=== PATIENT | female | born 1930 | race Caucasian/White ===

== ENCOUNTER 2017-07-07 09:31 | Emergency (ER) | payer MEDICARE, BC ==
[~2017-07-07] VITALS: Ht 152.4 cm; Wt 65.5 kg
[~2017-07-07 09:31] MED LIST: ASPI1TAB57 PO; DILA100C PO; LEVO.1 PO; METO25TA3 PO; WARF-18 PO; ZOCO40TA PO
[2017-07-07 09:37] VITALS: BP 106/60; PULSE 63; RESP 16; TEMP 98; O2SAT 96
--- NOTE | 2017-07-07 11:35 | PD ---
HPI Chief Complaint: Dizziness Time Seen by Provider: 11:17 Travel History International Travel<30 days: No Contact w/Intl Traveler<30days: No History of Present Illness HPI 87yo F with PMH of HTN, DVT on coumadin, hypothyroidism, vertigo, seizure disorder on dilantin presents to the ED with c/o dizziness after getting her hair done yesterday. Said she felt room spinning and then all day didnt feel good. It got better throughout the day and woke up this morning feeling pretty good. Then she got up from sitting position and felt lightheaded. Said she is not dizzy lying down right now but when she looked up to look at the clock, felt dizzy for a little bit again. Denies any visual changes, chest pain, sob, n/v, abdominal pain, focal weakness or numbness. PFSH Past Medical History Arthritis: Yes Autoimmune Disease: No Blood Disorders: No Heart Rhythm Problems: No Cancer: No Cardiovascular Problems: Yes High Cholesterol: Yes Chest Pain: No Congestive Heart Failure: No Cerebrovascular Accident: No Diabetes: No Diminished Hearing: No Deep Vein Thrombosis: Yes Endocrine: Yes (NODULE ON THYROID) Gastrointestinal Disorders: No Genitourinary: No Headaches: No Hepatitis: No Hypertension: Yes Immune Disorder: No Implanted Vascular Access Dvce: No Musculoskeletal: Yes Neurologic: No Psychiatric: No Reproductive: No Respiratory: Yes Migraines: No Myocardial Infarction: No Seizures: Yes (none since 2002) Thyroid Disease: Yes PNEUMOCCOCAL Vaccine (Year): 2 Past Surgical History Abdominal Surgery: No Cardiac Surgery: No Cholecystectomy: Yes Ear Surgery: No Endocrine Surgery: No Eye Surgery: No Genitourinary Surgery: No Gynecologic Surgery: Yes (HYSTERECTOMY 1967) Hysterectomy: Yes Oral Surgery: No Pacemaker: No Thoracic Surgery: Yes (CHOLECYSTECTOMY 1986) Other Surgery: Yes (gall bladder, rt knee arthoscopic, hysterectomy) Social History Alcohol Use: No Tobacco Use: No Substance Use: No Allergies-Medications (Allergen,Severity, Reaction): Coded Allergies: Sulfa (Sulfonamide Antibiotics) (Unverified Allergy, Severe, RASH, 07/07/17 ) carbamazepine (Unverified Allergy, Mild, rash, 07/07/17) rash Reported Meds & Prescriptions Reported Meds & Active Scripts Active Keflex (Cephalexin) 500 Mg Cap 500 Mg PO Q12H 7 Days Reported Zocor (Simvastatin) 40 Mg Tab 40 Mg PO Dilantin (Phenytoin Extended) 100 Mg Cap 200 Mg PO EVEN NUMBER DAY Dilantin (Phenytoin Extended) 100 Mg Cap 300 Mg PO ODD NUMBER DAY Warfarin 2.5 Mg Tab 2.5 Mg PO DAILY Synthroid (Levothyroxine Sodium) 100 Mcg Tab 100 Mcg PO DAILY Aspirin 81 (Aspirin) 81 Mg Tabdr 81 Mg PO DAILY Review of Systems Except as stated in HPI: all other systems reviewed are Neg Physical Exam Narrative GENERAL: 87yo F not in distress. SKIN: Focused skin assessment warm/dry. HEAD: Atraumatic. Normocephalic. EYES: Pupils equal and round at 3mm bilaterally. EOMI. No horizontal or vertigo nystagmus. ENT: No nasal bleeding or discharge. Mucous membranes pink and moist. NECK: Trachea midline. No JVD. CARDIOVASCULAR: Regular rate and rhythm. No murmur appreciated. RESPIRATORY: No accessory muscle use. Clear to auscultation. Breath sounds equal bilaterally. GASTROINTESTINAL: Abdomen soft, non-tender, nondistended. MUSCULOSKELETAL: No obvious deformities. No clubbing. No cyanosis. No edema. NEUROLOGICAL: Awake and alert. No obvious cranial nerve deficits. Motor grossly within normal limits in all extremities. Sensation equal in all extremities. Normal finger to nose test. Normal speech. PSYCHIATRIC: Appropriate mood and affect; insight and judgment normal. Data Data Last Documented VS Vital Signs Date Time Temp Pulse Resp B/P (MAP) Pulse Ox O2 Delivery O2 Flow Rate FiO2 07/07/17 14:16 58 12 141/75 (97) 100 Room Air 07/07/17 09:37 98.0 Orders Orders Electrocardiogram (07/07/17 11:29) Basic Metabolic Panel (Bmp) (07/07/17 11:29) Complete Blood Count With Diff (07/07/17 11:29) Magnesium (Mg) (07/07/17 11:29) Troponin I (07/07/17 11:29) Act Partial Throm Time (Ptt) (07/07/17 11:29) Prothrombin Time / Inr (Pt) (07/07/17 11:29) Urinalysis - C+S If Indicated (07/07/17 11:29) Blood Glucose (07/07/17 11:29) Orthostatic Vital Signs (07/07/17 11:29) Urine Culture (07/07/17 12:35) Ceftriaxone Inj (Rocephin Inj) (07/07/17 13:45) Potassium, Serum (K) (07/07/17 13:32) Ed Discharge Order (07/07/17 15:31) Labs Laboratory Tests Test 07/07/17 12:30 07/07/17 12:35 07/07/17 14:10 White Blood Count 7.7 TH/MM3 Red Blood Count 4.57 MIL/MM3 Hemoglobin 9.9 GM/DL Hematocrit 33.1 % Mean Corpuscular Volume 72.4 FL Mean Corpuscular Hemoglobin 21.7 PG Mean Corpuscular Hemoglobin Concent 30.0 % Red Cell Distribution Width 16.5 % Platelet Count 265 TH/MM3 Mean Platelet Volume 8.5 FL Neutrophils (%) (Auto) 69.7 % Lymphocytes (%) (Auto) 18.7 % Monocytes (%) (Auto) 8.4 % Eosinophils (%) (Auto) 2.4 % Basophils (%) (Auto) 0.8 % Neutrophils # (Auto) 5.4 TH/MM3 Lymphocytes # (Auto) 1.4 TH/MM3 Monocytes # (Auto) 0.6 TH/MM3 Eosinophils # (Auto) 0.2 TH/MM3 Basophils # (Auto) 0.1 TH/MM3 CBC Comment AUTO DIFF Differential Comment AUTO DIFF CONFIRMED Target Cells 1+ Ovalocytes 1+ Prothrombin Time 31.5 SEC Prothromb Time International Ratio 3.1 RATIO Activated Partial Thromboplast Time 33.4 SEC Blood Urea Nitrogen 19 MG/DL Creatinine 1.10 MG/DL Random Glucose 85 MG/DL Calcium Level 8.3 MG/DL Magnesium Level 2.4 MG/DL Sodium Level 140 MEQ/L Potassium Level 5.7 MEQ/L 5.0 MEQ/L Chloride Level 109 MEQ/L Carbon Dioxide Level 22.5 MEQ/L Anion Gap 9 MEQ/L Estimat Glomerular Filtration Rate 47 ML/MIN Troponin I LESS THAN 0.02 NG/ML Urine Collection Type CLEAN CATCH Urine Color YELLOW Urine Turbidity CLOUDY Urine pH 7.0 Urine Specific [place] 1.020 Urine Protein NEG mg/dL Urine Glucose (UA) NEG mg/dL Urine Ketones NEG mg/dL Urine Occult Blood NEG Urine Nitrite POS Urine Bilirubin NEG Urine Urobilinogen 0.2 MG/DL Urine Leukocyte Esterase LARGE Urine RBC 0-3 /hpf Urine WBC 100-200 /hpf Urine WBC Clumps MANY Urine Squamous Epithelial Cells 0-5 /hpf Urine Bacteria MANY /hpf Microscopic Urinalysis Comment CULTURE INDICATED Urine Collection Time 12:35 [facility] Medical Decision Making Medical Screen Exam Complete: Yes Emergency Medical Condition: Yes Interpretation(s) EKG: Sinus bradycardia at 57bpm. LAD. No ST segment elevation or depression. Differential Diagnosis Orthostatic hypotension vs. peripheral vertigo vs. electrolyte abnormality Narrative Course 87yo F with c/o dizziness since yesterday. Pt cant really describe what she is feeling. However, has no dizziness currently while lying down. Said it feels different than her vertigo since she does not have any nausea or vomiting. Labs reviewed, no leukocytosis. H/H low at which is slightly lower than her baseline. Pt denies any blood in stool or black stool. Hemaprompt negative. K elevated at elevated at 5.7 but hemolyzed so it was repeated and repeat K is normal at 5.0. Troponin negative. INR therapeutic at 3.1. Pt has normal gait. UA showed positive nitrite. Large leukocyte. Pt given ceftriaxone 1gm IV. Pt reevaluated at bedside and denies any more dizziness. Return precautions given. HemaPrompt Point of Care Internal Pos. & Neg. Controls: Passed Fecal Specimen Occult Blood: Negative Diagnosis Primary Impression: UTI (urinary tract infection) Qualified Codes: N39.0 - Urinary tract infection, site not specified Patient Instructions: General Instructions Departure Forms: Tests/Procedures Additional Instructions: Please follow up with your primary care physician in 3-7 days. Return to the ED if symptoms worsen. Med/Other Pt SpecificInfo: Prescription(s) given Scripts Cephalexin (Keflex) 500 Mg Cap 500 MG PO Q12H for Infection for 7 Days, #14 CAP 0 Refills Prov: Mary Mirza 07/07/17 Disposition: 01 DISCHARGE HOME Condition: Stable MirzaDelaney bainaftab HELMS Jul 07, 2017 11:35
[2017-07-07 11:50] VITALS: BP_SYST 141; BP_SYST 145; BP_SYST 147; BP_DIAS 70; BP_DIAS 71; BP_DIAS 76; RESP 16
[2017-07-07 12:35] LABS: AUTOMATED NEUTROPHIL # 5.4 TH/MM3 (1.8-7.7); BASOPHIL # 0.1 TH/MM3 (0-0.2); BASOPHIL % 0.8 % (0.0-2.0); EOSINOPHIL # 0.2 TH/MM3 (0-0.4); EOSINOPHIL % 2.4 % (0.0-4.0); HEMATOCRIT 33.1 % (35.0-46.0); HEMOGLOBIN 9.9 GM/DL (11.6-15.3); LYMPH % 18.7 % (9.0-44.0); LYMPHOCYTE # 1.4 TH/MM3 (1.0-4.8); MEAN CELL VOLUME 72.4 FL (80.0-100.0); MEAN CORPUSCULAR HEMOGLOBIN 21.7 PG (27.0-34.0); MEAN PLATELET VOLUME 8.5 FL (7.0-11.0); MONO % 8.4 % (0.0-8.0); MONOCYTE # 0.6 TH/MM3 (0-0.9); NEUT % 69.7 % (16.0-70.0); PLATELET COUNT 265 TH/MM3 (150-450); RED BLOOD COUNT 4.57 MIL/MM3 (4.00-5.30); RED CELL DISTRIBUTION WIDTH 16.5 % (11.6-17.2); WHITE BLOOD COUNT 7.7 TH/MM3 (4.0-11.0)
[2017-07-07 12:44] LABS: CHLORIDE 109 MEQ/L (98-107); SODIUM (NA) 140 MEQ/L (136-145)
[2017-07-07 12:44] LABS: BILIRUBIN, URINE NEG (NEG); BLOOD, URINE NEG (NEG); GLUCOSE,URINE NEG (NEG); KETONE, URINE NEG (NEG); NITRITE,URINE POS (NEG); URINE COLOR YELLOW (YELLW/STRAW); URINE LEUKOCYTE ESTERASE LARGE (NEG)
[2017-07-07 12:45] VITALS: BP 166/79; PULSE 56; RESP 12; O2SAT 100
[2017-07-07 12:46] LABS: CALCIUM 8.3 MG/DL (8.5-10.1)
[2017-07-07 12:47] LABS: BICARBONATE 22.5 MEQ/L (21.0-32.0); BLOOD UREA NITROGEN 19 MG/DL (7-18); GLUCOSE,RANDOM 85 MG/DL (74-106); MAGNESIUM 2.4 MG/DL (1.5-2.5)
[2017-07-07 12:49] LABS: INTERNATIONAL NORMALIZED RATIO 3.1 RATIO; PROTHROMBIN TIME - PATIENT 31.5 SEC (9.8-11.6)
[2017-07-07 12:50] LABS: GLOMERULAR FILTRATION RATE 47 ML/MIN (>89)
[2017-07-07 12:52] LABS: RBC, URINE 0-3 /hpf (0-3); WBC, URINE 100-200 /hpf (0-5); WHITE BLOOD CELL CLUMPS MANY
[2017-07-07 12:53] LABS: BACTERIA, URINE MANY /hpf; SQUAMOUS EPITHELIAL CELL URINE 0-5 /hpf (0-5)
[2017-07-07 12:55] LABS: TROPONIN I LESS THAN 0.02 NG/ML (0.02-0.05)
[2017-07-07 13:08] LABS: TARGET CELLS 1+ (NORMAL)
[2017-07-07 13:09] LABS: OVALOCYTES 1+ (NORMAL)
[2017-07-07] MEDS ORDERED: cefTRIAXone INJ 1,000 MG in SODIUM CHLORIDE 0.9% INJ 100 ML IV ONE (13:45)
[2017-07-07 14:16] VITALS: BP 141/75; PULSE 58; RESP 12; O2SAT 100
[2017-07-07] MEDS ORDERED: CEPH-460 PO (15:30)
--- NOTE | 2017-07-07 20:11 | EKG ---
Date Performed: 07/07/2017 Time Performed: 11:37:14 PTAGE: 87 years EKG: SINUS BRADYCARDIA BORDERLINE ECG Since the PREVIOUS TRACING , no significant change noted PREVIOUS TRACIN09/05/2013 09.02 DOCTOR: Remberto Daniel Interpretating Date/Time 07/07/2017 20:09:27
== END 2017-07-07 15:46 | disposition home or self-care (01) ==
LOC: PHED 09:31
DX: N39.0 Urinary tract infection, site not specified (principal); E03.9 Hypothyroidism, unspecified; E78.00 Pure hypercholesterolemia, unspecified; G40.909 Epilepsy, unspecified, not intractable, without status epilepticus; I10 Essential (primary) hypertension; R00.1 Bradycardia, unspecified; Z79.01 Long term (current) use of anticoagulants; Z86.718 Personal history of other venous thrombosis and embolism
CPT/HCPCS: 80048; 81001; 83735; 84132; 84484; 85025; 85610; 85730; 87077; 87086; 87186; 93005; 96365; 99284; J0696

== ENCOUNTER 2017-10-12 07:44 | Inpatient (IN) ==
[2017-10-13] MEDS ORDERED: Midazolam 50 MG/50 ML Inj 50 MG/50 ML BAG IV.CONT ONE (23:50)
[2017-10-14] MEDS ORDERED: Magnesium Oxide 400 MG Tablet PO PRN (00:01)
[2017-10-14] MEDS ORDERED: Sodium Phosphate Inj 30 MMOL in Sodium Chlor 0.9% Inj 250 ML IV.SIG PRN (00:01)
[2017-10-14] MEDS ORDERED: Potassium Chlor 40 mEq Premix 40 MEQ/100 ML PIGGYBACK IV.SIG PRN (00:01)
[2017-10-14] MEDS ORDERED: Midazolam 50 MG/50 ML Inj 50 MG/50 ML BAG IV.CONT PRN (00:01)
[2017-10-14] MEDS ORDERED: Potassium Chloride 25 MEQ Effervescent Tablet PO PRN (00:01)
[2017-10-14] MEDS ORDERED: Potassium Phosphate 500 MG Soluble Tablet PO PRN ×2 (00:01)
[2017-10-14] MEDS ORDERED: Magnesium Sulfate Inj 2 GM in Sodium Chlor 0.9% Inj 96 ML IV.SIG PRN (00:01)
[2017-10-14] MEDS ORDERED: Magnesium Sulfate Inj 4 GM in Sodium Chlor 0.9% Inj 92 ML IV.SIG PRN (00:01)
[2017-10-14] MEDS ORDERED: Chlorhexidine Gluconate 2% 1 Pack (2 Cloths) TOPICAL PRN (00:01)
[2017-10-14] MEDS ORDERED: Potassium Phosphate Inj 30 MMOL in Sodium Chlor 0.9% Inj 250 ML IV.SIG PRN (00:01)
[2017-10-14] MEDS: Chlorhexidine Gluconate 2% 1 Pack (2 Cloths) TOPICAL SCH (04:29)
[2017-10-14 05:03] LABS: Baso % (Auto) 0.3 % (0.0-2.0); Eos % (Auto) 0.3 % (0.0-4.0); Hematocrit 24.2 % (35.0-46.0); Hemoglobin 7.8 gm/dL (11.6-15.3); Lymph # (Auto) 1.6 th/mm3 (1.0-4.8); Lymph % (Auto) 14.4 % (9.0-44.0); Mean Corpuscular HGB Conc 32.4 % (32.0-36.0); Mean Corpuscular Hemoglobin 23.7 pg (27.0-34.0); Mean Corpuscular Volume 73.1 fL (80.0-100.0); Mean Platelet Volume 8.3 fL (7.0-11.0); Mono # (Auto) 1.4 th/mm3 (0.0-0.9); Mono % (Auto) 12.4 % (0.0-8.0); Neut # (Auto) 8.2 th/mm3 (1.8-7.7); Neut % (Auto) 72.6 % (16.0-70.0); Platelet Count 143 th/mm3 (150-450); Red Cell Distribution Width 19.1 % (11.6-17.2); White Blood Count 11.3 th/mm3 (4.0-11.0)
[2017-10-14 05:33] LABS: Albumin 2.1 g/dL (3.4-5.0); Calcium 7.1 mg/dL (8.5-10.1); Carbon Dioxide 17.9 meq/L (21.0-32.0); Magnesium 2.1 mg/dL (1.5-2.5); Potassium 3.1 meq/L (3.5-5.1)
[2017-10-14 05:34] LABS: Phenytoin (Dilantin) 27.7 mcg/mL (10.0-20.0); Total Protein 5.3 g/dL (6.4-8.2)
[2017-10-14] MEDS: Sod Chloride 0.9% Inj 1,000 ML IV.SIG SCH ×3 (05:40→18:40)
[2017-10-14] MEDS: Sodium Chloride 23.4% Inj 188 MEQ in Sod Chloride 0.9% Inj 1,000 ML IV.SIG SCH ×2 (05:40→21:59)
[2017-10-14] MEDS: Oral Hygiene Kit OROPHARYNG SCH ×4 (05:41→23:39)
[2017-10-14] MEDS: Levothyroxine 100 MCG Tablet PO SCH (05:46)
--- NOTE | 2017-10-14 07:55 | P.PNCC ---
Subjective Subjective Remarks/Hospital Course: Patient is a 87-year-old female with past medical history significant for seizure disorder, history of DVT on Coumadin, history of recent skin cancer removed from scalp, hypothyroidism who presented to the emergency department for recurrent falls. She fell once yesterday and twice today. With last fall she did hit her head. Stat CT of the head showed 1 cm left subdural hemorrhage with moderate mass-effect left-sided subarachnoid hemorrhage and cortical contusion. Patient's INR was 4.4, patient was ordered to receive 10 mg vitamin K , and initially was ordered K Centra. Due to in availability of Kcentra 3 units of FFP was ordered. Dr. Kaba was consulted with advised reversal of anticoagulation first. Critical care was contacted for admission I evaluated the patient in the ICU. She is anxious but hemodynamically stable. There is mild facial droop and mild right-sided weakness right upper extremity. Three units of FFP, vitamin K done. I discussed with Dr. Kaba. He will re evaluate for surgical evacuation after complete reversal of anticoagulation. BUN/creatinine slightly elevated 23/1.24. Give 1 unit normal saline bolus and maintenance fluid at 50 mL/h with normal saline. Also start 2 % saline and 30 mL/h to target sodium more than 145. Her Dilantin level was 32.5 which is supratherapeutic corrected level is 37. Will hold Dilantin no other seizure prophylaxis needed at this time SUBJ 10/13/17: Approximately at about 5:30 AM developed focal seizures, was bolused with a single dose of Keppra thousand milligrams IV 1. Currently on 500 mg IV twice daily. Dilantin uncorrected 27.7. CT head today shows there is a slight increase in size of the left subdural hematoma, with significant increase in posterior component. Hb 6.7 today, repeat CBC is pending. Check ABG stat as patient is more somnolent. But wakes up easily appears to be protecting airway at this time SUBJ 10/14/17: s/p evacuation of left SDH, post op CT shows good evacuation with some residual blood. Pneumocephalus present. No further seizures postop. Dilantin level remains high at 27.7 Objective Vital Signs / I&O: Vital Signs 10/14/17 00:00 10/14/17 01:00 10/14/17 02:00 Temperature 97.9 F Pulse Rate 76 76 78 Respiratory Rate 15 15 15 Blood Pressure 136/47 L 133/46 L 135/46 L Pulse Oximetry 100 100 100 10/14/17 03:00 10/14/17 03:39 10/14/17 04:00 Temperature 99 F Pulse Rate 78 84 Respiratory Rate 15 15 15 Blood Pressure 130/45 L 122/43 L Pulse Oximetry 100 Intake & Output 10/13/17 10/14/17 10/14/17 18:59 06:59 18:59 Intake Total 2534 / 2534 Output Total 970 / 970 Balance 1564 / 1564 Intake: Other 2534 / 2534 Output: Stool 0 / 0 Urine Amount (Catheter) 750 / 750 Indwelling Urethral Catheter 750 / 750 Gastric Drainage 100 / 100 Orogastric Tube 100 / 100 Wound Drainage 120 / 120 Posterior Head TATA Drain 120 / 120 Other: Other Intake Source Saline Solution Result Diagrams: 10/14/17 04:50 10/14/17 04:50 Objective Remarks: GENERAL: Elderly female sedated with Versed and fentanyl infusion SKIN: Warm/dry. HEAD: Small abrasion tip of nose, circumferential craniotomy dressing intact EYES: Pupils equal and round, reactive. 3 to 2 ENT: No nasal bleeding or discharge. Mucous membranes pink and moist. Orotracheally intubated NECK: Trachea midline. No JVD. CARDIOVASCULAR: Regular rate and rhythm. Grade 2 systolic murmur heard in all areas RESPIRATORY: PRVC/AC. No accessory muscle use. Clear to auscultation. Breath sounds equal bilaterally. GASTROINTESTINAL: Abdomen soft, non-tender, nondistended. MUSCULOSKELETAL: No obvious deformities. No clubbing. 1+ pitting edema NEUROLOGICAL: Intubated, heavily sedated with Versed and fentanyl infusions. Pupils reactive as above equal. Slight withdrawal of extremities. No spontaneous movement noted while on sedation Assessment and Plan - Assessment and Plan Plan: /P Assessment and Plan NEURO: Status post fall with left subdural, subarachnoid hemorrhage and cortical contusion, moderate mass-effect Dilantin toxicity Recurrent seizures Seizure disorder -CT of the head 10/12: 1 cm left subdural hemorrhage with moderate mass-effect left-sided SAH and cortical contusion. Repeat CT 10/13 increasing subdural hemorrhage -Status post craniotomy and evacuation of left subdural hemorrhage yesterday . Postop CT today shows improved subdural hemorrhage with some pneumocephalus. -No further seizures postop. Dilantin level remains high at 27.7 -Continue Keppra 500 mg IV every 12. Check EEG -Replace calcium, keep magnesium above 2 -Keep sedated with IV Versed and fentanyl infusions, no sedation vacation until cleared by Dr. Kaba -Recurrent fall was most likely secondary to Dilantin toxicity. -2% saline to keep sodium above 145 -Avoid hyponatremia hypomagnesemia hypoxia RESP: Acute respiratory failure -PRVC AC -No SBT until cleared by N/S -DuoNeb every 6 hours as needed -ABG today CV: Hypertension -Normal saline IV fluids 75 ml per hour -2% Saline 30 ml per hour -IV labetalol 10 mg every 2 hours as needed for SBP more than 150 GI: -N.p.o. start tube feeds in 24 hours -IV famotidine : Acute kidney injury -Monitor renal function closely. Haley catheter for accurate intake output -IV fluid resuscitation as above ID: -Antibiotics not indicated at this time, except perioperative HEME: Supratherapeutic INR On chronic Coumadin for DVT Anemia Vitamin B12 deficiency -s/p 3 units FFP, 10 mg IV vitamin K given -Status post 1 unit PRBC yesterday 10/13/2017 hemoglobin 7.8 today -Monitor CBC, CMP, INR -Continue vitamin B12 supplementation ENDO: Hypothyroidism Hypocalcemia -Continue Synthroid -Electrolyte replacement per protocol PROPH: -Bilateral lower extremity SCDs. Chemical DVT prophylaxis contraindicated. IV famotidine LINES: -Right IJ central line and arterial line placed in OR 10/13/2017 CC time 45 min Code Status: Full Discussed Condition With: POA at bedside and RN
[2017-10-14] MEDS: Potassium Chlor 40 mEq Premix 40 MEQ/100 ML PIGGYBACK IV.SIG PRN ×2 (08:13→11:34)
[2017-10-14] MEDS: Senna/Docusate Sodium 8.6/50 MG Tablet PO SCH ×2 (08:22→21:39)
[2017-10-14] MEDS: Famotidine PF Inj 20 MG/2 ML Vial IV.PUSH SCH ×2 (08:23→21:38)
[2017-10-14] MEDS: Chlorhexidine Gluconate 0.12% Liq 15 ML UDC SWISH-SPIT SCH ×2 (08:24→21:39)
[2017-10-14] MEDS: Labetalol HCl Inj 100 MG/20 ML Vial IV.PUSH PRN (16:45)
--- NOTE | 2017-10-14 21:05 | P.PNNS ---
Subjective Interval history: Patient has undergone left craniotomy evacuation for left hemisphere acute subdural hematoma on 10/13/2017. Pre-existing history of seizures with additional seizure activity noted preoperative. Patient intubated prior to surgery for decline in neurologic exam with follow-up CT scan 10/13/2017 revealing mild increase in left hemisphere subdural hematoma without additional mass-effect. 10/14/2017: CT scan head with good evacuation of left hemisphere subdural hematoma. Persistent enlargement of right subdural-subarachnoid space. Persistent mild to moderate left convexity subarachnoid hemorrhage. Ventricles remain symmetric. No significant pneumocephalus. Hemoglobin 7.8. Positive hypokalemia. No further seizure activity reported. Remains intubated with mild sedation. Physical Exam Vital signs: Vital Signs 10/14/17 00:00 10/14/17 01:00 10/14/17 02:00 Temperature 97.9 F Pulse Rate 76 76 78 Respiratory Rate 15 15 15 Blood Pressure 136/47 L 133/46 L 135/46 L Pulse Oximetry 100 100 100 10/14/17 03:00 10/14/17 03:39 10/14/17 04:00 Temperature 99 F Pulse Rate 78 84 Respiratory Rate 15 15 15 Blood Pressure 130/45 L 122/43 L Pulse Oximetry 100 10/14/17 08:00 10/14/17 16:30 10/14/17 20:36 Temperature Pulse Rate 79 73 75 Respiratory Rate 15 15 15 Blood Pressure Pulse Oximetry Intake & Output 10/14/17 10/14/17 10/15/17 06:59 18:59 06:59 Intake Total 2534 / 2534 1100 / 1100 Output Total 970 / 970 Balance 1564 / 1564 1100 / 1100 Intake: IV 1100 / 1100 KCl 40 mEq Premix Inj 40 meq In 100 / 100 100 ml @ 25 mls/hr IV.SIG Q2H PRN Rx#:[id number] NS Inj 1,000 ML @ 100 mls/hr IV 1000 / 1000 .SIG .Q10H CAREY Rx#:[id number] Other 2534 / 2534 Output: Stool 0 / 0 Urine Amount (Catheter) 750 / 750 Indwelling Urethral Catheter 750 / 750 Gastric Drainage 100 / 100 Orogastric Tube 100 / 100 Wound Drainage 120 / 120 Posterior Head TATA Drain 120 / 120 Other: Other Intake Source Saline Solution Narrative: Respirations clear Cardiac regular Abdomen soft Mild lower extremity edema Intubated. Sedated on fentanyl and Versed. Propofol discontinued. Pupils 2-3 mm nonreactive. Mild oculocephalic response No eye-opening Not following commands Mild flexion upper extremities to deep pain Significant increase drain output. Mostly CSF blood-tinged 10/14/2017 CT scan head images reviewed. Good evacuation of majority of large left hemisphere acute subdural hematoma. No significant pneumocephalus. Ventricles are symmetric No midline shift. Persistent increased right subdural space and subarachnoid space - Urinary Catheter Management Indwelling Urethral Catheter Cath placed during this visit: no Assessment and Plan - Assessment (1) Subdural hematoma, acute Code(s): S06.5X9A - Traumatic subdural hemorrhage with loss of consciousness of unspecified duration, initial encounter Status: Acute - Plan Impression: 1. Stable neurologic exam and postoperative CT scan following evacuation acute left hemisphere subdural hematoma 10/14/2017 2. Anemia 3. Hypokalemia 4. Seizure disorder Plan: 1. Continue present ventilatory support 2. Decrease subdural drain bulb compression. 3. Monitor hemoglobin 4. Continue Keppra. Dilantin held. Level remains high today 5. Electrolyte replacement Discussed with the patient's POA. All questions answered. Prognosis remains guarded
[2017-10-15] MEDS: fentaNYL 10 mcg/mL Premix Drip 2,500 MCG/250 ML BAG IV.SIG PRN (00:58)
[2017-10-15] MEDS: Chlorhexidine Gluconate 2% 1 Pack (2 Cloths) TOPICAL SCH (05:48)
[2017-10-15] MEDS: Oral Hygiene Kit OROPHARYNG SCH ×3 (05:48→17:21)
[2017-10-15] MEDS: Levothyroxine 100 MCG Tablet PO SCH (05:48)
--- NOTE | 2017-10-15 07:31 | MG ---
cc: Carl Tatum MD EEG NUMBER: [id number] Intubated. MEDICATIONS: Fentanyl, Versed. INDICATIONS: Left subdural hematoma. An 87-year-old woman hit her head. Fentanyl, Keppra. DESCRIPTION: There is an asymmetry higher amplitude on the left than the right. General diffuse 7 Hz rhythms are seen. I do not see any epileptiform or seizure activity, however. It appears that there might be a slight left breach rhythm if there has been a bur hole done. Photic stimulation performed without significant posterior driving. IMPRESSION: Slightly higher amplitude in the left could represent a breach rhythm, but no seizure activity is seen. Carl Tatum MD DJM/DL , 07:13 AM , 07:31 AM
--- NOTE | 2017-10-15 09:32 | P.PNNS ---
Subjective Interval history: 10/15/2017: Patient is now postop day #2 status post left craniotomy for evacuation of subdural hematoma. She remains intubated. Weaning sedation today. No seizure activity noted Still significant CSF output from the drain, now being compressed only once per shift. Physical Exam Vital signs: Vital Signs 10/14/17 10:00 10/14/17 12:00 10/14/17 14:00 Temperature 98.5 F Pulse Rate 78 80 74 Respiratory Rate 20 Blood Pressure 172/79 H Pulse Oximetry 100 10/14/17 16:00 10/14/17 16:30 10/14/17 18:00 Temperature 98 F Pulse Rate 72 73 74 Respiratory Rate 21 15 Blood Pressure 162/74 H Pulse Oximetry 100 10/14/17 20:00 10/14/17 20:31 10/14/17 20:36 Temperature 98.7 F Pulse Rate 72 75 Respiratory Rate 15 15 15 Blood Pressure 133/67 Pulse Oximetry 100 10/14/17 22:00 10/14/17 23:53 10/15/17 00:00 Temperature 98.9 F Pulse Rate 69 70 Respiratory Rate 15 15 Blood Pressure 114/57 L Pulse Oximetry 100 10/15/17 02:00 10/15/17 02:24 10/15/17 03:16 Temperature Pulse Rate 58 L 66 Respiratory Rate 15 15 Blood Pressure Pulse Oximetry 100 10/15/17 04:00 10/15/17 04:41 10/15/17 06:00 Temperature 98.5 F Pulse Rate 67 68 Respiratory Rate 15 15 Blood Pressure 145/72 H Pulse Oximetry 100 10/15/17 07:55 10/15/17 08:00 Temperature Pulse Rate 67 Respiratory Rate 15 Blood Pressure Pulse Oximetry 100 Intake & Output 10/14/17 10/15/17 10/15/17 18:59 06:59 18:59 Intake Total 1205 / 1205 1284 / 1284 Output Total 980 / 980 1365 / 1365 Balance 225 / 225 -81 / -81 Weight 71.5 kg Intake: IV 1205 / 1205 KCl 40 mEq Premix Inj 40 meq In 100 / 100 100 ml @ 25 mls/hr IV.SIG Q2H PRN Rx#:[id number] NS Inj 1,000 ML @ 100 mls/hr IV 1000 / 1000 .SIG .Q10H CAREY Rx#:[id number] Keppra Inj 500 MG In NS Inj 100 105 / 105 ML @ 420 mls/hr IV.SIG Q12HR CAREY Rx#:[id number] Oral 0 / 0 Other 1284 / 1284 Output: Stool 0 / 0 Urine Amount (Catheter) 500 / 500 1000 / 1000 Indwelling Urethral Catheter 500 / 500 1000 / 1000 Gastric Drainage 75 / 75 175 / 175 Orogastric Tube 75 / 75 175 / 175 Wound Drainage 405 / 405 190 / 190 Posterior Head TATA Drain 405 / 405 190 / 190 Other: Other Intake Source Saline Solution # Bowel Movements 0 0 Narrative: General: Intubated. Sedation being weaned off. Respirations: Clear to auscultation Cardiac regular without murmur Abdomen soft. No obvious tenderness. Extremities: Mild lower extremity edema. No cyanosis. Musculoskeletal: Good range of motion all extremities. No contractures. Neurologic: With sedation turned off for approximately 30 minutes, the patient has good eye opening to voice. She tracks slightly in response to voice. Pupils are midrange mildly reactive. Mild conjugate extraocular movements. Not following commands. Minimal bilateral grasp. - Urinary Catheter Management Indwelling Urethral Catheter Cath placed during this visit: no Assessment and Plan - Assessment (1) Subdural hematoma, acute Code(s): S06.5X9A - Traumatic subdural hemorrhage with loss of consciousness of unspecified duration, initial encounter Status: Acute - Plan Impression: 1. Stable neurologic exam and postoperative CT scan following evacuation acute left hemisphere subdural hematoma 10/14/2017. She is relatively alert on 10/15/17 with initial sedation weaning 2. Anemia 3. Hypokalemia 4. Seizure disorder Plan: 1. Continue present ventilatory support. Discussed with supervisor painting shipyard. Okay to wean sedation. 2. Decrease subdural drain bulb compression. 3. Monitor hemoglobin 4. Continue Keppra. Dilantin held. Level remains high today 5. Electrolyte replacement 6. EEG results pending 7. CT scan head 10/16/2017 Discussed with the patient's POA in the intensive surgical care unit this morning. She states that she will notify her other power of ceramic tile mechanic in regards to the patient's progress.. All questions answered. Prognosis remains guarded
[2017-10-15] MEDS: Famotidine PF Inj 20 MG/2 ML Vial IV.PUSH SCH ×2 (09:53→20:15)
[2017-10-15] MEDS: Senna/Docusate Sodium 8.6/50 MG Tablet PO SCH ×2 (09:53→20:15)
[2017-10-15] MEDS: Chlorhexidine Gluconate 0.12% Liq 15 ML UDC SWISH-SPIT SCH ×2 (09:55→20:16)
[2017-10-15 10:20] LABS: INR 1.1 Ratio; Prothrombin Time 11.1 sec (9.8-11.6)
[2017-10-15 10:33] LABS: Alanine Aminotransferase 16 U/L (10-53); Albumin 1.9 g/dL (3.4-5.0); Alkaline Phosphatase 75 U/L (45-117); Anion Gap 13 meq/L (5-15); Aspartate Aminotransferase 12 U/L (15-37); Blood Urea Nitrogen 12 mg/dL (7-18); Calcium 7.1 mg/dL (8.5-10.1); Carbon Dioxide 15.5 meq/L (21.0-32.0); Chloride 127 meq/L (98-107); Glomerular Filtration Rate Greater Than 89 mL/min (>89); Glucose,Random 100 mg/dL (74-106); Potassium 3.8 meq/L (3.5-5.1); Sodium 155 meq/L (136-145); Total Protein 5.1 g/dL (6.4-8.2)
--- NOTE | 2017-10-15 12:53 | P.PNCC ---
Subjective Subjective Remarks/Hospital Course: Patient is a 87-year-old female with past medical history significant for seizure disorder, history of DVT on Coumadin, history of recent skin cancer removed from scalp, hypothyroidism who presented to the emergency department for recurrent falls. She fell once yesterday and twice today. With last fall she did hit her head. Stat CT of the head showed 1 cm left subdural hemorrhage with moderate mass-effect left-sided subarachnoid hemorrhage and cortical contusion. Patient's INR was 4.4, patient was ordered to receive 10 mg vitamin K , and initially was ordered K Centra. Due to in availability of Kcentra 3 units of FFP was ordered. Dr. Ennis was consulted with advised reversal of anticoagulation first. Critical care was contacted for admission I evaluated the patient in the ICU. She is anxious but hemodynamically stable. There is mild facial droop and mild right-sided weakness right upper extremity. Three units of FFP, vitamin K done. I discussed with Dr. Ennis. He will re evaluate for surgical evacuation after complete reversal of anticoagulation. BUN/creatinine slightly elevated 23/1.24. Give 1 unit normal saline bolus and maintenance fluid at 50 mL/h with normal saline. Also start 2 % saline and 30 mL/h to target sodium more than 145. Her Dilantin level was 32.5 which is supratherapeutic corrected level is 37. Will hold Dilantin no other seizure prophylaxis needed at this time SUBJ 10/13/17: Approximately at about 5:30 AM developed focal seizures, was bolused with a single dose of Keppra thousand milligrams IV 1. Currently on 500 mg IV twice daily. Dilantin uncorrected 27.7. CT head today shows there is a slight increase in size of the left subdural hematoma, with significant increase in posterior component. Hb 6.7 today, repeat CBC is pending. Check ABG stat as patient is more somnolent. But wakes up easily appears to be protecting airway at this time SUBJ 10/14/17: s/p evacuation of left SDH, post op CT shows good evacuation with some residual blood. Pneumocephalus present. No further seizures postop. Dilantin level remains high at 27.7 7/: Remains intubated critical. Sodium 155. Hypertonic saline. Opening eyes to voice when sedation held, and tracks. Hemodynamically remains stable. Dilantin level 23.3 today Objective Vital Signs / I&O: Vital Signs 10/14/17 14:00 10/14/17 16:00 10/14/17 16:30 Temperature 98 F Pulse Rate 74 72 73 Respiratory Rate 21 15 Blood Pressure 162/74 H Pulse Oximetry 100 10/14/17 18:00 10/14/17 20:00 10/14/17 20:31 Temperature 98.7 F Pulse Rate 74 72 Respiratory Rate 15 15 Blood Pressure 133/67 Pulse Oximetry 100 10/14/17 20:36 10/14/17 22:00 10/14/17 23:53 Temperature Pulse Rate 75 69 Respiratory Rate 15 15 Blood Pressure Pulse Oximetry 100 10/15/17 00:00 10/15/17 02:00 10/15/17 02:24 Temperature 98.9 F Pulse Rate 70 58 L Respiratory Rate 15 15 Blood Pressure 114/57 L Pulse Oximetry 100 10/15/17 03:16 10/15/17 04:00 10/15/17 04:41 Temperature 98.5 F Pulse Rate 66 67 Respiratory Rate 15 15 15 Blood Pressure 145/72 H Pulse Oximetry 100 10/15/17 06:00 10/15/17 07:55 10/15/17 08:00 Temperature 97.6 F Pulse Rate 68 69 Respiratory Rate 15 15 Blood Pressure 135/92 H Pulse Oximetry 100 100 10/15/17 10:00 10/15/17 11:52 10/15/17 12:00 Temperature 97.7 F Pulse Rate 76 70 Respiratory Rate 15 13 Blood Pressure 126/97 H Pulse Oximetry 100 100 10/15/17 12:21 Temperature Pulse Rate 70 Respiratory Rate Blood Pressure Pulse Oximetry Intake & Output 10/14/17 10/15/17 10/15/17 18:59 06:59 18:59 Intake Total 1205 / 1205 1389 / 1389 Output Total 980 / 980 1365 / 1365 Balance 225 / 225 24 / 24 Weight 71.5 kg Intake: IV 1205 / 1205 105 / 105 KCl 40 mEq Premix Inj 40 meq In 100 / 100 100 ml @ 25 mls/hr IV.SIG Q2H PRN Rx#:[id number] NS Inj 1,000 ML @ 100 mls/hr IV 1000 / 1000 .SIG .Q10H CAREY Rx#:[id number] Keppra Inj 500 MG In NS Inj 100 105 / 105 105 / 105 ML @ 420 mls/hr IV.SIG Q12HR CAREY Rx#:[id number] Oral 0 / 0 Other 1284 / 1284 Output: Stool 0 / 0 Urine Amount (Catheter) 500 / 500 1000 / 1000 Indwelling Urethral Catheter 500 / 500 1000 / 1000 Gastric Drainage 75 / 75 175 / 175 Orogastric Tube 75 / 75 175 / 175 Wound Drainage 405 / 405 190 / 190 Posterior Head TATA Drain 405 / 405 190 / 190 Other: Other Intake Source Saline Solution # Bowel Movements 0 0 Result Diagrams: 10/14/17 04:50 10/15/17 09:32 Objective Remarks: GENERAL: Elderly female sedated with Versed and fentanyl infusion, now held for 30 min SKIN: Warm/dry. HEAD: Small abrasion tip of nose, circumferential craniotomy dressing intact EYES: Pupils equal and round, reactive. 3 to 2 ENT: No nasal bleeding or discharge. Mucous membranes pink and moist. Orotracheally intubated NECK: Trachea midline. No JVD. CARDIOVASCULAR: Regular rate and rhythm. Grade 2 systolic murmur heard in all areas RESPIRATORY: PRVC/AC. No accessory muscle use. Clear to auscultation. Breath sounds equal bilaterally. GASTROINTESTINAL: Abdomen soft, non-tender, nondistended. MUSCULOSKELETAL: No obvious deformities. No clubbing. 1+ pitting edema NEUROLOGICAL: Intubated. Pupils reactive as above equal. + withdrawal of extremities. Opens eyes and tracks Assessment and Plan - Assessment and Plan Plan: A/P Assessment and Plan NEURO: Status post fall with left subdural, subarachnoid hemorrhage and cortical contusion, moderate mass-effect Dilantin toxicity Recurrent seizures Seizure disorder -CT of the head 10/12: 1 cm left subdural hemorrhage with moderate mass-effect left-sided SAH and cortical contusion. Repeat CT 10/13 increasing subdural hemorrhage -Status post craniotomy and evacuation of left subdural hemorrhage yesterday . Postop CT today shows improved subdural hemorrhage with some pneumocephalus. -No further seizures postop. Dilantin level remains high at 23.3 -Continue Keppra 500 mg IV every 12. Check EEG -Replace calcium, keep magnesium above 2 -Keep sedated with IV Versed and fentanyl infusions, Daily sedation vacation -Recurrent fall was most likely secondary to Dilantin toxicity. -dc 2% saline, keep sodium 150-155 -Avoid hyponatremia hypomagnesemia hypoxia RESP: Acute respiratory failure -PRVC/AC -No SBT until cleared by N/S -DuoNeb every 6 hours as needed -ABG today CV: Hypertension -Normal saline IV fluids 75 ml per hour -dc 2% Saline -IV labetalol 10 mg every 2 hours as needed for SBP more than 150 GI: -start tube feeds WITH jEVITY -IV famotidine : Acute kidney injury -Monitor renal function closely. Haley catheter for accurate intake output -IV fluid resuscitation as above ID: -Antibiotics not indicated at this time, except perioperative HEME: Supratherapeutic INR On chronic Coumadin for DVT Anemia Vitamin B12 deficiency -s/p 3 units FFP, 10 mg IV vitamin K given -Status post 1 unit PRBC 10/13/2017 -Monitor CBC, CMP, INR -Continue vitamin B12 supplementation ENDO: Hypothyroidism Hypocalcemia -Continue Synthroid -Electrolyte replacement per protocol PROPH: -Bilateral lower extremity SCDs. Chemical DVT prophylaxis contraindicated. IV famotidine LINES: -Right IJ central line and arterial line placed in OR 10/13/2017 CC time 32 min Code Status: FULL Discussed Condition With: DR ENNIS AND TABATHA
[2017-10-15] MEDS: Labetalol HCl Inj 100 MG/20 ML Vial IV.PUSH PRN ×2 (14:46→18:16)
[2017-10-15] MEDS: Sod Chloride 0.9% Inj 1,000 ML IV.SIG SCH (15:30)
[2017-10-16] MEDS: Sod Chloride 0.9% Inj 1,000 ML IV.SIG SCH ×3 (03:31→08:20)
--- NOTE | 2017-10-16 04:47 | XR ---
EXAM DATE: 10/16/2017 3:50 AM EDT AGE/SEX: 87 years / Female INDICATIONS: Respiratory disease. CLINICAL DATA: This is the patient's subsequent encounter. Patient reports that signs and symptoms h ave been present for 1 week and indicates a pain score of Nonresponsive. MEDICAL/SURGICAL HISTORY: Non-responsive. Non-responsive. COMPARISON: [facility] – [place], CHEST SINGLE AP, 10/13/2017. . FINDINGS: ET tube tip 1.9 cm above the lynn. Right internal jugular catheter tip projects in the right atrium . Gastric tube traverses the [id number]. There is increasing opacity with development of consolida tion consolidation in left lower lung with loss of delineation of the entire left hemidiaphragm. The right lung is clear. The heart is normal in size. CONCLUSION: Left lower lung consolidation. Electronically signed by: Kaushik Aguilar MD 10/16/2017 4:45 AM EDT
[2017-10-16] MEDS: Chlorhexidine Gluconate 2% 1 Pack (2 Cloths) TOPICAL SCH (05:12)
[2017-10-16] MEDS: Oral Hygiene Kit OROPHARYNG SCH ×3 (05:12→17:39)
[2017-10-16 05:37] LABS: Hematocrit 23.2 % (35.0-46.0); Hemoglobin 7.5 gm/dL (11.6-15.3); Mean Corpuscular HGB Conc 32.3 % (32.0-36.0); Mean Corpuscular Hemoglobin 24.1 pg (27.0-34.0); Mean Corpuscular Volume 74.5 fL (80.0-100.0); Mean Platelet Volume 8.1 fL (7.0-11.0); Platelet Count 132 th/mm3 (150-450); Red Blood Count 3.11 mil/mm3 (4.00-5.30); Red Cell Distribution Width 20.6 % (11.6-17.2); White Blood Count 9.2 th/mm3 (4.0-11.0)
[2017-10-16 06:07] LABS: Alanine Aminotransferase 15 U/L (10-53); Albumin 1.8 g/dL (3.4-5.0); Anion Gap 11 meq/L (5-15); Aspartate Aminotransferase 13 U/L (15-37); Blood Urea Nitrogen 13 mg/dL (7-18); Calcium 7.5 mg/dL (8.5-10.1); Carbon Dioxide 17.1 meq/L (21.0-32.0); Chloride 123 meq/L (98-107); Glomerular Filtration Rate Greater Than 89 mL/min (>89); Glucose,Random 140 mg/dL (74-106); Potassium 3.4 meq/L (3.5-5.1); Sodium 151 meq/L (136-145)
[2017-10-16 06:09] LABS: Alkaline Phosphatase 71 U/L (45-117); Total Protein 4.9 g/dL (6.4-8.2)
[2017-10-16] MEDS: Levothyroxine 100 MCG Tablet PO SCH (06:50)
[2017-10-16] MEDS: Labetalol HCl Inj 100 MG/20 ML Vial IV.PUSH PRN ×2 (08:15→15:46)
[2017-10-16] MEDS: Famotidine PF Inj 20 MG/2 ML Vial IV.PUSH SCH ×2 (08:18→22:32)
[2017-10-16] MEDS: Chlorhexidine Gluconate 0.12% Liq 15 ML UDC SWISH-SPIT SCH ×2 (08:18→21:03)
[2017-10-16] MEDS: Senna/Docusate Sodium 8.6/50 MG Tablet PO SCH ×2 (08:18→22:33)
[2017-10-16] MEDS ORDERED: niCARdipine Inj 25 MG in Sodium Chlor 0.9% Inj 240 ML IV.CONT PRN (09:31)
[2017-10-16] MEDS: fentaNYL 10 mcg/mL Premix Drip 2,500 MCG/250 ML BAG IV.SIG PRN (09:34)
--- NOTE | 2017-10-16 10:30 | P.PNNS ---
Subjective Interval history: Patient is in bed when seen. She continues to be intubated and mechanically ventilated. She does open her eyes to voice. She is not following any commands but did move the left upper and both lower extremities to noxious stimulation. She had no response with the right upper except for facial grimacing. Physical Exam Vital signs: Vital Signs 10/15/17 11:52 10/15/17 12:00 10/15/17 12:21 Temperature 97.7 F Pulse Rate 70 70 Respiratory Rate 15 13 Blood Pressure 126/97 H Pulse Oximetry 100 100 10/15/17 14:00 10/15/17 16:00 10/15/17 18:00 Temperature 97.9 F Pulse Rate 80 74 90 Respiratory Rate 16 Blood Pressure 160/74 H Pulse Oximetry 100 10/15/17 20:00 10/15/17 21:18 10/15/17 22:00 Temperature 98.1 F Pulse Rate 83 68 71 Respiratory Rate 20 15 Blood Pressure 159/66 H Pulse Oximetry 100 100 10/16/17 00:00 10/16/17 01:02 10/16/17 02:00 Temperature 98.4 F Pulse Rate 71 71 Respiratory Rate 15 15 Blood Pressure 136/73 Pulse Oximetry 100 10/16/17 04:00 10/16/17 04:08 10/16/17 06:00 Temperature 98 F Pulse Rate 72 77 72 Respiratory Rate 15 Blood Pressure 139/68 Pulse Oximetry 100 100 10/16/17 07:31 10/16/17 07:46 Temperature Pulse Rate 70 Respiratory Rate 15 15 Blood Pressure Pulse Oximetry 99 Intake & Output 10/15/17 10/16/17 10/16/17 18:59 06:59 18:59 Intake Total 105 / 105 2517 / 2517 355 / 355 Output Total 1925 / 1925 715 / 715 Balance -1820 / -1820 1802 / 1802 355 / 355 Weight 71.6 kg Intake: IV 105 / 105 1105 / 1105 355 / 355 NS Inj 1,000 ML @ 100 mls/hr IV 1000 / 1000 .SIG .Q10H CAREY Rx#:[id number] fentaNYL 10 mcg/mL Premix Drip 250 / 250 2,500 mcg In 250 ml @ 50 MCG/HR 5 mls/hr IV.SIG TITRATE PRN Rx #:[id number] Keppra Inj 500 MG In NS Inj 100 105 / 105 105 / 105 105 / 105 ML @ 420 mls/hr IV.SIG Q12HR CAREY Rx#:[id number] Oral 0 / 0 Tube Feeding 230 / 230 Tube Irrigant 60 / 60 Other 1122 / 1122 Output: Urine 1725 / 1725 Stool 0 / 0 Urine Amount (Catheter) 525 / 525 Indwelling Urethral Catheter 525 / 525 Gastric Drainage 100 / 100 Orogastric Tube 100 / 100 Wound Drainage 100 / 100 190 / 190 Posterior Head TATA Drain 100 / 100 190 / 190 Other: Other Intake Source Saline Solution # Bowel Movements 0 0 Narrative: GENERAL: Drowsy, opens eyes to voice. Intubated & mechanically ventilated. Fentanyl 100 mcg/hr infusing for pain control. On nicardipine infusion at 5 mg/ hr for blood pressure. No apparent distress. HEENT: Normocephalic. Well approximated surgical incisions w/sutures intact, no evident drainage, erythema or streaking, TATA drain to bulb suction w/ serosanguinous-coloured drainage. Pupils 2 mm reactive, does not appear to track. MUSCULOSKELETAL: Moved LUE & BLE to stimulation. No evident clubbing or deformity. NEUROLOGICAL: Drowsy, opens eyes to voice. Pupils 2mm reactive, does not appear to track. Nonverbal, intubated. Did not follow any commands. Moved LUE & BLE to local noxious stimulation, no response w/RUE to local noxious stimulation but did have facial grimacing. - Urinary Catheter Management Indwelling Urethral Catheter Cath placed during this visit: no Reason for continuing: Hourly intake/output Assessment and Plan - Plan Impression: 1. Stable neurologic exam and postoperative CT scan following evacuation acute left hemisphere subdural hematoma 10/14/2017. She is relatively alert on 10/15/17 with initial sedation weaning 2. Anemia 3. Hypokalemia 4. Seizure disorder Patient drowsy. Does open eyes to voice. Not following commands. Moves LUE & BLE to noxious stimulation, no response w/RUE. Prognosis continues to be guarded. TATA drain with 290 mL output for the past 24 hrs as of shift change this morning. Reviewed labs for today. EEG w/slightly higher amplitude on the left, possible breach rhythm, w/o seizure activity seen. Plan: 1. Continue present ventilatory support. Discussed with ball fringe machine operator. Okay to wean sedation. 2. Decrease subdural drain bulb compression. 3. Monitor hemoglobin 4. Continue Keppra. Dilantin held. Level remains high today 5. Electrolyte replacement 6. CT scan head 10/16/2017
--- NOTE | 2017-10-16 10:54 | P.DIET ---
Nutritional Evaluation Type of nutrition evaluation: initial Nutrition consult regarding: Tube Feeding Subjective Subjective Comments: s/p fall. Objective - Diagnosis Subdural hematoma, Acute - Objective % IBW: 171 Body Weight Used for Calculations: Upper end of IBW (101.2#/ 46 kg) Energy Needs - Lower Range (kCal/kg): 28 Energy Needs - Upper Range (kCal/kg): 32 Lower Limit kCal/kg (kCals): 1,288 Upper Limit kCal/kg (kCals): 1,472 Lower Limit Protein Factor (Grams per Kg): 1.2 Upper Limit Protein Factor (Grams per Kg): 1.6 Lower Protein Needs (Protein): 55 Upper Protein Needs (Protein): 74 Dietitian Reviewed in Medical Record: Curent medications, Intake & Output, Labs , Medical history, Tube feeding Diet Order: TF only Objective Comments: Hx includes seizure d/o, DVT on coumadin, skin CA on scalp, hypthyroid Labs: Na 151, K 3.4, glu 140 Meds include synthroid, propofol, (currently not on Dilantin) 7/1 evac of L SDH Feeding - Current Tube Feeding Tube Feeding Product: Jevity 1.5 Tube Feeding Method: Pump Tube Feeding Rate: 40 Medications That Affect Tube Feeding Run Time: Synthroid Total Time Off: 2 hours Assessment Assessment: Pt is at high nutrition risk 2' to dx and the need for TFing. To meet needs with Jevity 1.5, recommend goal rate of 45 mls/hr x 22 hours (d/t synthroid) to provide 1485 kcals, 63 gms protein and 752 mls of free water. Some additional kcals will be provided by propofol (1.1 kcal/ml). Recommendations: Jevity 1.5 @ 45 mls/hr x 22 hours. TF must be held 1 hour before and after synthroid is given Dietitian to Monitor: Lab values, Intake & Output, Tube feeding tolerance, Weight change, Medical course
--- NOTE | 2017-10-16 13:37 | P.PNCC ---
Subjective Subjective Remarks/Hospital Course: Patient is a 87-year-old female with past medical history significant for seizure disorder, history of DVT on Coumadin, history of recent skin cancer removed from scalp, hypothyroidism who presented to the emergency department for recurrent falls. She fell once yesterday and twice today. With last fall she did hit her head. Stat CT of the head showed 1 cm left subdural hemorrhage with moderate mass-effect left-sided subarachnoid hemorrhage and cortical contusion. Patient's INR was 4.4, patient was ordered to receive 10 mg vitamin K , and initially was ordered K Centra. Due to in availability of Kcentra 3 units of FFP was ordered. Dr. Kaba was consulted with advised reversal of anticoagulation first. Critical care was contacted for admission I evaluated the patient in the ICU. She is anxious but hemodynamically stable. There is mild facial droop and mild right-sided weakness right upper extremity. Three units of FFP, vitamin K done. I discussed with Dr. Kaba. He will re evaluate for surgical evacuation after complete reversal of anticoagulation. BUN/creatinine slightly elevated 23/1.24. Give 1 unit normal saline bolus and maintenance fluid at 50 mL/h with normal saline. Also start 2 % saline and 30 mL/h to target sodium more than 145. Her Dilantin level was 32.5 which is supratherapeutic corrected level is 37. Will hold Dilantin no other seizure prophylaxis needed at this time 10/13/17: Approximately at about 5:30 AM developed focal seizures, was bolused with a single dose of Keppra thousand milligrams IV 1. Currently on 500 mg IV twice daily. Dilantin uncorrected 27.7. CT head today shows there is a slight increase in size of the left subdural hematoma, with significant increase in posterior component. Hb 6.7 today, repeat CBC is pending. Check ABG stat as patient is more somnolent. But wakes up easily appears to be protecting airway at this time 10/14/17: s/p evacuation of left SDH, post op CT shows good evacuation with some residual blood. Pneumocephalus present. No further seizures postop. Dilantin level remains high at 27.7 7: Remains intubated critical. Sodium 155. Hypertonic saline. Opening eyes to voice when sedation held, and tracks. Hemodynamically remains stable. Dilantin level 23.3 today Subjective: 7/3 Hypertensive when sedation was weaned so started on cardene early this morning. CT brain to be repeated today per NSG. Follows commands by wiggling left toes. Objective Vital Signs / I&O: Vital Signs 10/15/17 14:00 10/15/17 16:00 10/15/17 18:00 Temperature 97.9 F Pulse Rate 80 74 90 Respiratory Rate 16 Blood Pressure 160/74 H Pulse Oximetry 100 10/15/17 20:00 10/15/17 21:18 10/15/17 22:00 Temperature 98.1 F Pulse Rate 83 68 71 Respiratory Rate 20 15 Blood Pressure 159/66 H Pulse Oximetry 100 100 10/16/17 00:00 10/16/17 01:02 10/16/17 02:00 Temperature 98.4 F Pulse Rate 71 71 Respiratory Rate 15 15 Blood Pressure 136/73 Pulse Oximetry 100 10/16/17 04:00 10/16/17 04:08 10/16/17 06:00 Temperature 98 F Pulse Rate 72 77 72 Respiratory Rate 15 Blood Pressure 139/68 Pulse Oximetry 100 100 10/16/17 07:31 10/16/17 07:46 10/16/17 08:00 Temperature 98.8 F Pulse Rate 70 68 Respiratory Rate 15 15 19 Blood Pressure 198/81 H Pulse Oximetry 99 100 10/16/17 11:38 Temperature Pulse Rate Respiratory Rate 15 Blood Pressure Pulse Oximetry 99 Intake & Output 10/15/17 10/16/17 10/16/17 18:59 06:59 18:59 Intake Total 105 / 105 2517 / 2517 355 / 355 Output Total 1925 / 1925 715 / 715 90 / 90 Balance -1820 / -1820 1802 / 1802 265 / 265 Weight 71.6 kg Intake: IV 105 / 105 1105 / 1105 355 / 355 NS Inj 1,000 ML @ 100 mls/hr IV 1000 / 1000 .SIG .Q10H CAREY Rx#:[id number] fentaNYL 10 mcg/mL Premix Drip 250 / 250 2,500 mcg In 250 ml @ 50 MCG/HR 5 mls/hr IV.SIG TITRATE PRN Rx #:[id number] Keppra Inj 500 MG In NS Inj 100 105 / 105 105 / 105 105 / 105 ML @ 420 mls/hr IV.SIG Q12HR CAREY Rx#:[id number] Oral 0 / 0 Tube Feeding 230 / 230 Tube Irrigant 60 / 60 Other 1122 / 1122 Output: Urine 1725 / 1725 Stool 0 / 0 Urine Amount (Catheter) 525 / 525 Indwelling Urethral Catheter 525 / 525 Gastric Drainage 100 / 100 Orogastric Tube 100 / 100 Wound Drainage 100 / 100 190 / 190 90 / 90 Posterior Head TATA Drain 100 / 100 190 / 190 90 / 90 Other: Other Intake Source Saline Solution # Bowel Movements 0 0 Result Diagrams: 10/21/17 04:30 10/21/17 04:30 Objective Remarks: GENERAL: Elderly female on sedation with fentanyl 25 mcg/hr, orotracheally intubated. SKIN: Warm/dry. HEAD: Small abrasion tip of nose. S/p L craniotomy with nataliya, c/d/i. TATA in place. EYES: Pupils equal and round, reactive. 3 to 2 ENT: No nasal bleeding or discharge. Mucous membranes pink and moist. Orotracheally intubated NECK: Trachea midline. No JVD. CARDIOVASCULAR: Regular rate and rhythm. Grade 2 systolic murmur heard in all areas RESPIRATORY: PRVC/AC. No accessory muscle use. Clear to auscultation. Breath sounds equal bilaterally. GASTROINTESTINAL: Abdomen soft, non-tender, nondistended. MUSCULOSKELETAL: No obvious deformities. No clubbing. 1+ pitting edema all extremities. NEUROLOGICAL: Intubated. Pupils reactive as above equal. Opens eyes, makes eye contact and tracks. Follows command with wiggling L toes. L side flaccid but has sensation as she has facial grimace with noxious stimuli. Assessment and Plan - Problem List (1) Dilantin toxicity Code(s): T42.0X1A - Poisoning by hydantoin derivatives, accidental ( unintentional), initial encounter Status: Acute (2) Subdural hematoma, acute Code(s): S06.5X9A - Traumatic subdural hemorrhage with loss of consciousness of unspecified duration, initial encounter Status: Acute (3) Seizure disorder Code(s): G40.909 - Epilepsy, unspecified, not intractable, without status epilepticus Status: Chronic (4) Respiratory failure, acute Code(s): J96.00 - Acute respiratory failure, unspecified whether with hypoxia or hypercapnia Status: Acute (5) HTN (hypertension) Code(s): I10 - Essential (primary) hypertension Status: Chronic (6) Hypothyroid Code(s): E03.9 - Hypothyroidism, unspecified Status: Chronic (7) B12 deficiency Code(s): E53.8 - Deficiency of other specified B group vitamins Status: Chronic - Assessment and Plan Plan: A/P Assessment and Plan NEURO: Status post fall with left subdural, subarachnoid hemorrhage and cortical contusion, moderate mass-effect Dilantin toxicity Recurrent seizures Seizure disorder -CT of the head 10/12: 1 cm left subdural hemorrhage with moderate mass-effect left-sided SAH and cortical contusion. Repeat CT 10/13 increasing subdural hemorrhage -Status post craniotomy and evacuation of left subdural hemorrhage 10/13/2017. Postop CT showed improved subdural hemorrhage with some pneumocephalus. -Repeat CT brain today per neurosurgery. -No further seizures postop. Dilantin level remains high at 23.3 on 10/15. -Continue Keppra 500 mg IV every 12. -EEG 10/15 slightly higher amplitude on the left. No seizure activity. -Replace calcium, keep magnesium above 2 -Off versed. Wean fentanyl infusions. NSG also agreeable to sedation vacation. -Recurrent fall was most likely secondary to Dilantin toxicity. -dc 2% saline, keep sodium 150-155 -Avoid hyponatremia hypomagnesemia hypoxia -B12 supplementation as per below. RESP: Acute respiratory failure -PRVC/AC -SBT today. -DuoNeb every 6 hours as needed CV: Hypertension -KVO MIVF. -dc 2% Saline -IV labetalol 10 mg every 2 hours as needed for SBP more than 150 -Wean off cardene drip. GI: -On tube feeds with Jevity 1.5 @ 50/hr, change to 45/hr per nutrition recs. -IV famotidine : Acute kidney injury -Monitor renal function closely. Haley catheter for accurate intake output ID: -Antibiotics not indicated at this time. HEME: Supratherapeutic INR On chronic Coumadin for DVT on admission. Anemia Vitamin B12 deficiency -s/p 3 units FFP, 10 mg IV vitamin K given -Status post 1 unit PRBC 10/13/2017 -Continue vitamin B12 supplementation 1000 mcg IM daily. ENDO: Hypothyroidism Hypocalcemia -Continue Synthroid 100 mcg per tube daily. -Electrolyte replacement per protocol PROPH: -Bilateral lower extremity SCDs. Chemical DVT prophylaxis contraindicated. IV famotidine LINES: -Right IJ central line placed in OR 10/13/2017 #4. Art line placed in OR has been removed. Level 3 followup.
[2017-10-16] MEDS ORDERED: Labetalol HCl Inj 100 MG/20 ML Vial IV.PUSH ONE (16:46)
[2017-10-16] MEDS: amLODIPine 5 MG Tablet NG/OG SCH (17:39)
--- NOTE | 2017-10-16 19:16 | US ---
EXAM DATE: 10/16/2017 7:11 PM EDT AGE/SEX: 87 years / Female INDICATIONS: Bilateral leg swelling. CLINICAL DATA: This is the patient's initial encounter. Patient reports that signs and symptoms have been present for 1 day and indicates a pain score of Nonresponsive. MEDICAL/SURGICAL HISTORY: Hypercholesterolemia. Hypertension. Thyroid disease. Dizziness. Anti coagulant therapy. Hyperlipidemia. Deep vein thrombosis. Arthritis. Osteoporosis. Tonsillectomy. Ap pendectomy. Hysterectomy. Right eye cataract surgery. Cholecystectomy. Right knee arthroscopic. COMPARISON: None. TECHNIQUE: Venous ultrasound of both lower extremities was performed from the inguinal ligament to t he proximal calf. Real-time, color Doppler and spectral tracing, compression and augmentation techni ques were used. FINDINGS: Right Leg: Normal compression of the deep venous system from the inguinal region to the proximal gege f. No echogenic clot is seen. Normal response of the venous system to augmentation and respiration. Left Leg: Normal compression of the deep venous system from the inguinal region to the proximal calf . No echogenic clot is seen. Normal response of the venous system to augmentation and respiration. Other: None. CONCLUSION: 1. The study is negative for bilateral lower extremity deep venous thrombosis. Electronically signed by: Kaushik Norris MD 10/16/2017 7:15 PM EDT
[2017-10-17] MEDS: Oral Hygiene Kit OROPHARYNG SCH ×4 (01:39→16:43)
[2017-10-17 04:30] LABS: Hematocrit 24.1 % (35.0-46.0); Hemoglobin 7.6 gm/dL (11.6-15.3); Mean Corpuscular HGB Conc 31.6 % (32.0-36.0); Mean Corpuscular Hemoglobin 23.6 pg (27.0-34.0); Mean Corpuscular Volume 74.7 fL (80.0-100.0); Mean Platelet Volume 8.4 fL (7.0-11.0); Platelet Count 125 th/mm3 (150-450); Red Blood Count 3.23 mil/mm3 (4.00-5.30); Red Cell Distribution Width 21.1 % (11.6-17.2); White Blood Count 9.4 th/mm3 (4.0-11.0)
[2017-10-17 05:02] LABS: Calcium 7.9 mg/dL (8.5-10.1); Carbon Dioxide 20.4 meq/L (21.0-32.0); Potassium 3.2 meq/L (3.5-5.1)
[2017-10-17 05:04] LABS: Phenytoin (Dilantin) 14.7 mcg/mL (10.0-20.0)
[2017-10-17] MEDS: Chlorhexidine Gluconate 2% 1 Pack (2 Cloths) TOPICAL SCH (06:27)
[2017-10-17] MEDS: Levothyroxine 100 MCG Tablet PO SCH (06:28)
[2017-10-17] MEDS: Chlorhexidine Gluconate 0.12% Liq 15 ML UDC SWISH-SPIT SCH ×2 (07:57→20:59)
[2017-10-17] MEDS: Senna/Docusate Sodium 8.6/50 MG Tablet PO SCH (09:35)
[2017-10-17] MEDS: amLODIPine 5 MG Tablet NG/OG SCH (09:35)
[2017-10-17] MEDS: Famotidine PF Inj 20 MG/2 ML Vial IV.PUSH SCH (09:35)
[2017-10-17] MEDS: Potassium Chlor 20 mEq Premix 20 MEQ/100 ML PIGGYBACK IV.SIG PRN ×3 (09:37→16:42)
--- NOTE | 2017-10-17 12:47 | P.PNNS ---
Subjective Interval history: 10/17/17: Pt opens eyes. Pupils 4mm bilaterally. She moves left foot to command but not following with extremities otherwise. She is intubated and on Cardene drip. Left crani clean and dry. TATA drain in place. Physical Exam Vital signs: Vital Signs 10/16/17 14:00 10/16/17 14:43 10/16/17 16:00 Temperature 98.3 F Pulse Rate 70 78 Respiratory Rate 17 17 Blood Pressure 162/74 H Pulse Oximetry 100 10/16/17 16:42 10/16/17 18:00 10/16/17 20:00 Temperature 98.7 F Pulse Rate 85 75 94 H Respiratory Rate 15 15 Blood Pressure 169/74 H Pulse Oximetry 100 10/16/17 20:23 10/16/17 21:05 10/16/17 22:00 Temperature Pulse Rate 78 78 Respiratory Rate 16 Blood Pressure Pulse Oximetry 100 99 10/17/17 00:00 10/17/17 02:00 10/17/17 03:44 Temperature 98.7 F Pulse Rate 73 71 78 Respiratory Rate 15 16 Blood Pressure 137/62 Pulse Oximetry 96 10/17/17 04:00 10/17/17 06:00 10/17/17 08:14 Temperature 98.7 F Pulse Rate 74 86 Respiratory Rate 15 15 Blood Pressure Pulse Oximetry 100 10/17/17 08:17 Temperature Pulse Rate 83 Respiratory Rate 15 Blood Pressure Pulse Oximetry Intake & Output 10/16/17 10/17/17 10/17/17 18:59 06:59 18:59 Intake Total 973 / 973 1845 / 1845 1000 / 1000 Output Total 970 / 970 1040 / 1040 800 / 800 Balance 3 / 3 805 / 805 200 / 200 Weight 71.6 kg 73.3 kg Intake: IV 355 / 355 105 / 105 fentaNYL 10 mcg/mL Premix Drip 250 / 250 2,500 mcg In 250 ml @ 50 MCG/HR 5 mls/hr IV.SIG TITRATE PRN Rx #:[id number] Keppra Inj 500 MG In NS Inj 100 105 / 105 105 / 105 ML @ 420 mls/hr IV.SIG Q12HR CAREY Rx#:[id number] Oral 0 / 0 0 / 0 Tube Feeding 558 / 558 558 / 558 600 / 600 Tube Irrigant 60 / 60 60 / 60 Water Bolus Amount 400 / 400 Other 1122 / 1122 Output: Urine 800 / 800 800 / 800 Stool 0 / 0 0 / 0 0 / 0 Urine Amount (Catheter) 800 / 800 Indwelling Urethral Catheter 800 / 800 Gastric Drainage 100 / 100 Orogastric Tube 100 / 100 Wound Drainage 170 / 170 140 / 140 Posterior Head TATA Drain 170 / 170 140 / 140 Other: Other Intake Source Saline Solution # Bowel Movements 0 0 - Constitutional no acute distress - Routine HEENT Exam Head: Absent: normocephalic (Left craniotomy incision clean and dry.) Eye: Present: PERRL (Pupils 4mm bilaterally.). Absent: conjunctival icterus - Routine Neck Exam Present: trachea midline - Routine Respiratory Exam Present: patient mechanically ventilated (Pressure controlled. Rate 15. Peep 5. FiO2 30%.), CTA bilaterally. Absent: respiratory distress, rhonchi, wheezes - Routine Cardiovascular Exam Present: RRR, S1, S2. Absent: murmur - Routine Abdominal Exam Present: normoactive bowel sounds. Absent: distended - Routine Extremities Exam Absent: cyanosis (SCDs in place.) - Routine Skin Exam Present: intact (Incision clean and dry. TATA drain in place.). Absent: cyanosis , erythema - Routine Neurological Exam Present: alert, motor deficit - Detailed Neurological Exam: Coma Scale Eye Opening: Spontaneous Verbal Response: None Motor Response: Obey commands (Some limited command following for me.) Drury Coma Scale Total: 11 - Routine Psychiatric Exam Present: unable to assess - Urinary Catheter Management Indwelling Urethral Catheter Cath placed during this visit: no Reason for continuing: Other continuation reason Assessment and Plan - Assessment (1) Subdural hematoma, acute Code(s): S06.5X9A - Traumatic subdural hemorrhage with loss of consciousness of unspecified duration, initial encounter Status: Acute - Plan Impression: 1. Stable neurologic exam and postoperative CT scan following evacuation acute left hemisphere subdural hematoma 10/14/2017. She is relatively alert on 10/15/17 with initial sedation weaning 2. Anemia 3. Hypokalemia 4. Seizure disorder Plan: 1. Continue present ventilatory support. 2. Decrease subdural drain bulb compression. 3. Monitor hemoglobin 4. Continue Keppra. 5. Continue with neuro checks.
--- NOTE | 2017-10-17 17:49 | P.PNCC ---
Subjective Subjective Remarks/Hospital Course: Patient is a 87-year-old female with past medical history significant for seizure disorder, history of DVT on Coumadin, history of recent skin cancer removed from scalp, hypothyroidism who presented to the emergency department for recurrent falls. She fell once yesterday and twice today. With last fall she did hit her head. Stat CT of the head showed 1 cm left subdural hemorrhage with moderate mass-effect left-sided subarachnoid hemorrhage and cortical contusion. Patient's INR was 4.4, patient was ordered to receive 10 mg vitamin K , and initially was ordered K Centra. Due to in availability of Kcentra 3 units of FFP was ordered. Dr. Kaba was consulted with advised reversal of anticoagulation first. Critical care was contacted for admission I evaluated the patient in the ICU. She is anxious but hemodynamically stable. There is mild facial droop and mild right-sided weakness right upper extremity. Three units of FFP, vitamin K done. I discussed with Dr. Kaba. He will re evaluate for surgical evacuation after complete reversal of anticoagulation. BUN/creatinine slightly elevated 23/1.24. Give 1 unit normal saline bolus and maintenance fluid at 50 mL/h with normal saline. Also start 2 % saline and 30 mL/h to target sodium more than 145. Her Dilantin level was 32.5 which is supratherapeutic corrected level is 37. Will hold Dilantin no other seizure prophylaxis needed at this time 10/13/17: Approximately at about 5:30 AM developed focal seizures, was bolused with a single dose of Keppra thousand milligrams IV 1. Currently on 500 mg IV twice daily. Dilantin uncorrected 27.7. CT head today shows there is a slight increase in size of the left subdural hematoma, with significant increase in posterior component. Hb 6.7 today, repeat CBC is pending. Check ABG stat as patient is more somnolent. But wakes up easily appears to be protecting airway at this time 10/14/17: s/p evacuation of left SDH, post op CT shows good evacuation with some residual blood. Pneumocephalus present. No further seizures postop. Dilantin level remains high at 27.7 7/2: Remains intubated critical. Sodium 155. Hypertonic saline. Opening eyes to voice when sedation held, and tracks. Hemodynamically remains stable. Dilantin level 23.3 today 7/3 Hypertensive when sedation was weaned so started on cardene early this morning. CT brain to be repeated today per NSG. Follows commands by wiggling left toes. Subjective: 10/17 Follows command with minimal movement L toes. On CPAP 01/18 for couple of hours but does not appear she would protect airway. Dilantin downtrending, albumin corrected is 32 Objective Vital Signs / I&O: Vital Signs 10/16/17 18:00 10/16/17 20:00 10/16/17 20:23 Temperature 98.7 F Pulse Rate 75 94 H Respiratory Rate 15 Blood Pressure 169/74 H Pulse Oximetry 100 10/16/17 21:05 10/16/17 22:00 10/17/17 00:00 Temperature 98.7 F Pulse Rate 78 78 73 Respiratory Rate 16 15 Blood Pressure 137/62 Pulse Oximetry 99 10/17/17 02:00 10/17/17 03:44 10/17/17 04:00 Temperature 98.7 F Pulse Rate 71 78 74 Respiratory Rate 16 15 Blood Pressure Pulse Oximetry 96 100 10/17/17 06:00 10/17/17 08:14 10/17/17 08:17 Temperature Pulse Rate 86 83 Respiratory Rate 15 15 Blood Pressure Pulse Oximetry 10/17/17 15:57 Temperature Pulse Rate Respiratory Rate 24 Blood Pressure Pulse Oximetry 100 Intake & Output 10/16/17 10/17/17 10/17/17 18:59 06:59 18:59 Intake Total 973 / 973 1845 / 1845 1305 / 1305 Output Total 970 / 970 1040 / 1040 800 / 800 Balance 3 / 3 805 / 805 505 / 505 Weight 71.6 kg 73.3 kg Intake: IV 355 / 355 105 / 105 305 / 305 KCl 20 mEq Premix Inj 20 meq In 200 / 200 100 ml @ 50 mls/hr IV.SIG Q2H PRN Rx#:[id number] fentaNYL 10 mcg/mL Premix Drip 250 / 250 2,500 mcg In 250 ml @ 50 MCG/HR 5 mls/hr IV.SIG TITRATE PRN Rx #:[id number] Keppra Inj 500 MG In NS Inj 100 105 / 105 105 / 105 105 / 105 ML @ 420 mls/hr IV.SIG Q12HR CAREY Rx#:[id number] Oral 0 / 0 0 / 0 Tube Feeding 558 / 558 558 / 558 600 / 600 Tube Irrigant 60 / 60 60 / 60 Water Bolus Amount 400 / 400 Other 1122 / 1122 Output: Urine 800 / 800 800 / 800 Stool 0 / 0 0 / 0 0 / 0 Urine Amount (Catheter) 800 / 800 Indwelling Urethral Catheter 800 / 800 Gastric Drainage 100 / 100 Orogastric Tube 100 / 100 Wound Drainage 170 / 170 140 / 140 Posterior Head TATA Drain 170 / 170 140 / 140 Other: Other Intake Source Saline Solution # Bowel Movements 0 0 Result Diagrams: 10/17/17 04:20 10/17/17 04:20 Objective Remarks: GENERAL: Elderly female on sedation with fentanyl 25 mcg/hr, orotracheally intubated. SKIN: Warm/dry. HEAD: Small abrasion tip of nose. S/p L craniotomy with nataliya, c/d/i. TATA in place. EYES: Pupils equal and round, reactive. 3 to 2 ENT: No nasal bleeding or discharge. Mucous membranes pink and moist. Orotracheally intubated NECK: Trachea midline. No JVD. CARDIOVASCULAR: Regular rate and rhythm. Grade 2 systolic murmur heard in all areas RESPIRATORY: On CPAP, No accessory muscle use. Breath sounds equal bilaterally; course. GASTROINTESTINAL: Abdomen soft, non-tender, nondistended. MUSCULOSKELETAL: No obvious deformities. No clubbing. 1-2+ pitting edema BUE, 1 + BLE. NEUROLOGICAL: Intubated. Pupils reactive as above equal. Opens eyes, makes eye contact and tracks. Follows command with wiggling L toes. Minimal movement of finger on L hand to command. R side flaccid, + facial grimace with right peripheral noxious stimuli. Assessment and Plan - Assessment and Plan Plan: A/P Assessment and Plan NEURO: Status post fall with left subdural, subarachnoid hemorrhage and cortical contusion, moderate mass-effect Dilantin toxicity Recurrent seizures Seizure disorder -CT of the head 10/12: 1 cm left subdural hemorrhage with moderate mass-effect left-sided SAH and cortical contusion. Repeat CT 10/13 increasing subdural hemorrhage -Status post craniotomy and evacuation of left subdural hemorrhage 10/13/2017. Postop CT showed improved subdural hemorrhage with some pneumocephalus. -TATA -Repeat CT brain 07/17 - small IVH without hydrocephalus -No further seizures postop. Albumin corrected Dilantin level remains high on . Will follow up. -Continue Keppra 500 mg IV every 12. -EEG 10/15 slightly higher amplitude on the left. No seizure activity. -Replace calcium, keep magnesium above 2 -Off versed. Wean fentanyl infusions. NSG also agreeable to sedation vacation. -Recurrent fall was most likely secondary to Dilantin toxicity. -off 2% saline -Avoid hyponatremia hypomagnesemia hypoxia -B12 supplementation as per below. RESP: Acute respiratory failure -PRVC/AC -SBT daily but mental status precludes extubation at this time. -DuoNeb every 6 hours as needed CV: Hypertension -KVO MIVF. -off 2% Saline -IV labetalol 10 mg every 2 hours as needed for SBP more than 150 -Wean off cardene drip. Increase Norvasc 10 mg daily. GI: - Jevity 1.5 @ 5 45/hr per nutrition recs. -IV famotidine : Acute kidney injury -Monitor renal function closely. Haley catheter for accurate intake output ID: Monitor for signs and symptoms of infection. HEME: Supratherapeutic INR On chronic Coumadin for DVT on admission. Anemia Vitamin B12 deficiency -s/p 3 units FFP, 10 mg IV vitamin K given -Status post 1 unit PRBC 10/13/2017 -Continue vitamin B12 supplementation 1000 mcg IM daily. ENDO: Hypothyroidism Hypocalcemia -Continue Synthroid 100 mcg per tube daily. -Electrolyte replacement per protocol PROPH: -Bilateral lower extremity SCDs. Chemical DVT prophylaxis contraindicated. IV famotidine LINES: -Right IJ central line placed in OR 10/13/2017 #5. No longer requires CVL. Place PIV and d/c CVL. Art line placed in OR has been removed. Level 3 followup.
[2017-10-17] MEDS ORDERED: amLODIPine 5 MG Tablet PO ONE (20:50)
[2017-10-17] MEDS ORDERED: Metoprolol Tartrate 25 MG Tablet PO SCH (21:00)
[2017-10-18] MEDS: Famotidine PF Inj 20 MG/2 ML Vial IV.PUSH SCH ×2 (00:29→08:34)
[2017-10-18] MEDS: Senna/Docusate Sodium 8.6/50 MG Tablet PO SCH ×2 (00:30→08:14)
[2017-10-18] MEDS: Oral Hygiene Kit OROPHARYNG SCH ×4 (00:30→17:07)
[2017-10-18] MEDS: Chlorhexidine Gluconate 2% 1 Pack (2 Cloths) TOPICAL SCH (03:20)
[2017-10-18 04:06] LABS: Hematocrit 22.7 % (35.0-46.0); Hemoglobin 7.2 gm/dL (11.6-15.3); Mean Corpuscular HGB Conc 31.5 % (32.0-36.0); Mean Corpuscular Hemoglobin 23.6 pg (27.0-34.0); Mean Platelet Volume 8.8 fL (7.0-11.0); Platelet Count 119 th/mm3 (150-450); Red Blood Count 3.02 mil/mm3 (4.00-5.30); Red Cell Distribution Width 21.7 % (11.6-17.2); White Blood Count 10.7 th/mm3 (4.0-11.0)
[2017-10-18 04:29] LABS: Albumin 1.7 g/dL (3.4-5.0); Calcium 7.4 mg/dL (8.5-10.1); Carbon Dioxide 23.2 meq/L (21.0-32.0); Phenytoin (Dilantin) 11.1 mcg/mL (10.0-20.0); Potassium 4.2 meq/L (3.5-5.1)
[2017-10-18 04:40] LABS: Calcium-Albumin Corrected 8.7 mg/dL (8.5-10.1); Total Protein 4.8 g/dL (6.4-8.2)
[2017-10-18] MEDS: Levothyroxine 100 MCG Tablet PO SCH (06:18)
[2017-10-18] MEDS: Chlorhexidine Gluconate 0.12% Liq 15 ML UDC SWISH-SPIT SCH (08:13)
[2017-10-18] MEDS: amLODIPine 10 MG Tablet NG/OG SCH (08:33)
[2017-10-18] MEDS: niCARdipine Inj 50 MG in Sodium Chlor 0.9% Inj 480 ML IV.CONT PRN (09:24)
--- NOTE | 2017-10-18 10:02 | P.PNCC ---
Subjective Subjective Remarks/Hospital Course: Patient is a 87-year-old female with past medical history significant for seizure disorder, history of DVT on Coumadin, history of recent skin cancer removed from scalp, hypothyroidism who presented to the emergency department for recurrent falls. She fell once yesterday and twice today. With last fall she did hit her head. Stat CT of the head showed 1 cm left subdural hemorrhage with moderate mass-effect left-sided subarachnoid hemorrhage and cortical contusion. Patient's INR was 4.4, patient was ordered to receive 10 mg vitamin K , and initially was ordered K [facility]ra. Due to in availability of Kcentra 3 units of FFP was ordered. Dr. Kaba was consulted with advised reversal of anticoagulation first. Critical care was contacted for admission I evaluated the patient in the ICU. She is anxious but hemodynamically stable. There is mild facial droop and mild right-sided weakness right upper extremity. Three units of FFP, vitamin K done. I discussed with Dr. Kaba. He will re evaluate for surgical evacuation after complete reversal of anticoagulation. BUN/creatinine slightly elevated 23/1.24. Give 1 unit normal saline bolus and maintenance fluid at 50 mL/h with normal saline. Also start 2 % saline and 30 mL/h to target sodium more than 145. Her Dilantin level was 32.5 which is supratherapeutic corrected level is 37. Will hold Dilantin no other seizure prophylaxis needed at this time 10/13/17: Approximately at about 5:30 AM developed focal seizures, was bolused with a single dose of Keppra thousand milligrams IV 1. Currently on 500 mg IV twice daily. Dilantin uncorrected 27.7. CT head today shows there is a slight increase in size of the left subdural hematoma, with significant increase in posterior component. Hb 6.7 today, repeat CBC is pending. Check ABG stat as patient is more somnolent. But wakes up easily appears to be protecting airway at this time 10/14/17: s/p evacuation of left SDH, post op CT shows good evacuation with some residual blood. Pneumocephalus present. No further seizures postop. Dilantin level remains high at 27.7 7/2: Remains intubated critical. Sodium 155. Hypertonic saline. Opening eyes to voice when sedation held, and tracks. Hemodynamically remains stable. Dilantin level 23.3 today 7/3 Hypertensive when sedation was weaned so started on cardene early this morning. CT brain to be repeated today per NSG. Follows commands by wiggling left toes. Subjective: 7/ Follows command with minimal movement L toes. On CPAP 01/18 for couple of hours but does not appear she would protect airway. Dilantin downtrending, albumin corrected is 32 10/18: Orally intubated on mechanical ventilation. Awake and alert. Tolerating tube feeds. Tolerating CPAP trial Objective Vital Signs / I&O: Vital Signs 10/17/17 10:00 10/17/17 12:00 10/17/17 14:00 Temperature Pulse Rate 74 74 74 Respiratory Rate Blood Pressure Pulse Oximetry 10/17/17 15:57 10/17/17 16:00 10/17/17 18:00 Temperature Pulse Rate 74 74 Respiratory Rate 24 Blood Pressure Pulse Oximetry 100 10/17/17 19:43 10/17/17 19:47 10/17/17 20:00 Temperature 98.7 F Pulse Rate 84 91 H Respiratory Rate 15 15 Blood Pressure 140/63 Pulse Oximetry 97 99 10/17/17 22:00 10/17/17 23:19 10/18/17 00:00 Temperature 97.6 F Pulse Rate 87 81 Respiratory Rate 15 16 Blood Pressure 117/57 L Pulse Oximetry 100 10/18/17 02:00 10/18/17 04:00 10/18/17 04:07 Temperature 99.2 F Pulse Rate 82 92 H Respiratory Rate 16 Blood Pressure 125/65 Pulse Oximetry 97 97 10/18/17 04:56 10/18/17 06:00 10/18/17 06:16 Temperature 99.2 F Pulse Rate 82 83 Respiratory Rate 15 15 Blood Pressure 141/65 H Pulse Oximetry 98 10/18/17 07:24 10/18/17 07:28 10/18/17 08:00 Temperature 98.8 F Pulse Rate 85 Respiratory Rate 15 10 L 15 Blood Pressure 131/60 Pulse Oximetry 97 99 Intake & Output 10/17/17 10/18/17 10/18/17 18:59 06:59 18:59 Intake Total 1989 2187 / 2187 Output Total 1450 / 1450 1270 / 1270 Balance 540 / 540 917 / 917 Weight 73.3 kg 73.3 kg Intake: IV 305 / 305 205 / 205 KCl 20 mEq Premix Inj 20 meq In 200 / 200 100 / 100 100 ml @ 50 mls/hr IV.SIG Q2H PRN Rx#:[id number] Keppra Inj 500 MG In NS Inj 100 105 / 105 105 / 105 ML @ 420 mls/hr IV.SIG Q12HR CAREY Rx#:[id number] Oral 0 / 0 0 / 0 Tube Feeding 1225 / 1225 400 / 400 Tube Irrigant 60 / 60 60 / 60 Water Bolus Amount 400 / 400 400 / 400 Other 1122 / 1122 Output: Urine 1200 / 1200 Stool 0 / 0 0 / 0 Urine Amount (Catheter) 1250 / 1250 Indwelling Urethral Catheter 1250 / 1250 Wound Drainage 200 / 200 70 / 70 Posterior Head TATA Drain 200 / 200 70 / 70 Other: Other Intake Source Saline Solution # Bowel Movements 0 0 Result Diagrams: 10/18/17 03:35 10/18/17 03:35 Objective Remarks: GENERAL: Elderly female on sedation with fentanyl 25 mcg/hr, orotracheally intubated. SKIN: Warm/dry. HEAD: Small abrasion tip of nose. S/p L craniotomy with nataliya, c/d/i. TATA in place. EYES: Pupils equal and round, reactive. 3 to 2 ENT: No nasal bleeding or discharge. Mucous membranes pink and moist. Orotracheally intubated NECK: Trachea midline. No JVD. CARDIOVASCULAR: Regular rate and rhythm. Grade 2 systolic murmur heard in all areas RESPIRATORY: On CPAP, No accessory muscle use. Breath sounds equal bilaterally; course. GASTROINTESTINAL: Abdomen soft, non-tender, nondistended. MUSCULOSKELETAL: No obvious deformities. No clubbing. 1-2+ pitting edema BUE, 1 + BLE. NEUROLOGICAL: Intubated. Pupils reactive as above equal. Opens eyes, makes eye contact and tracks. Follows command with wiggling L toes. Minimal movement of finger on L hand to command. R side flaccid, + facial grimace with right peripheral noxious stimuli. Assessment and Plan - Assessment and Plan Plan: A/P Assessment and Plan NEURO: Status post fall with left subdural, subarachnoid hemorrhage and cortical contusion, moderate mass-effect Dilantin toxicity Recurrent seizures Seizure disorder -CT of the head 10/12: 1 cm left subdural hemorrhage with moderate mass-effect left-sided SAH and cortical contusion. Repeat CT 10/13 increasing subdural hemorrhage -Status post craniotomy and evacuation of left subdural hemorrhage 10/13/2017. Postop CT showed improved subdural hemorrhage with some pneumocephalus. -TATA -Repeat CT brain 07/17 - small IVH without hydrocephalus -No further seizures postop. Albumin corrected Dilantin level remains high on . Will follow up. -Continue Keppra 500 mg IV every 12. -EEG 10/15 slightly higher amplitude on the left. No seizure activity. -Replace calcium, keep magnesium above 2 -Off versed. Wean fentanyl infusions. NSG also agreeable to sedation vacation. -Recurrent fall was most likely secondary to Dilantin toxicity. -off 2% saline -Avoid hyponatremia hypomagnesemia hypoxia -B12 supplementation as per below. RESP: Acute respiratory failure -PRVC/AC -SBT daily but mental status precludes extubation at this time. -DuoNeb every 6 hours as needed CV: Hypertension -KVO MIVF. -off 2% Saline -IV labetalol 10 mg every 2 hours as needed for SBP more than 150 -Wean off cardene drip. Increase Norvasc 10 mg daily. GI: - Jevity 1.5 @ 5 45/hr per nutrition recs. -IV famotidine : Acute kidney injury -Monitor renal function closely. Haley catheter for accurate intake output -Lasix 20 mg IV on 10/17 and 10/18 to mobilize fluid. ID: Monitor for signs and symptoms of infection. HEME: Supratherapeutic INR On chronic Coumadin for DVT on admission. Anemia Vitamin B12 deficiency -s/p 3 units FFP, 10 mg IV vitamin K given -Status post 1 unit PRBC 10/13/2017. Ordered 1 unit PRBCs on 10/18 for hemoglobin of 7.2 -Continue vitamin B12 supplementation 1000 mcg IM daily. ENDO: Hypothyroidism Hypocalcemia -Continue Synthroid 100 mcg per tube daily. -Electrolyte replacement per protocol PROPH: -Bilateral lower extremity SCDs. Chemical DVT prophylaxis contraindicated. IV famotidine LINES: -Right IJ central line placed in OR 10/13/2017, discontinued 10/17. Per IV Level 3 followup.
[2017-10-18] MEDS ORDERED: Sodium Chlor 0.9% Inj 250 ML IV.SIG SCH (11:00)
--- NOTE | 2017-10-18 16:27 | P.PNNS ---
Subjective Interval history: Patient has undergone left craniotomy evacuation for left hemisphere acute subdural hematoma on 10/13/2017. Pre-existing history of seizures with additional seizure activity noted preoperative. Patient intubated prior to surgery for decline in neurologic exam with follow-up CT scan 10/13/2017 revealing mild increase in left hemisphere subdural hematoma without additional mass-effect. 10/14/2017: CT scan head with good evacuation of left hemisphere subdural hematoma. Persistent enlargement of right subdural-subarachnoid space. Persistent mild to moderate left convexity subarachnoid hemorrhage. Ventricles remain symmetric. No significant pneumocephalus. Hemoglobin 7.8. Positive hypokalemia. No further seizure activity reported. Remains intubated with mild sedation. 10/15/2017: Patient is now postop day #2 status post left craniotomy for evacuation of subdural hematoma. She remains intubated. Weaning sedation today. No seizure activity noted Still significant CSF output from the drain, now being compressed only once per shift. 10/16: Patient is in bed when seen. She continues to be intubated and mechanically ventilated. She does open her eyes to voice. She is not following any commands but did move the left upper and both lower extremities to noxious stimulation. She had no response with the right upper except for facial grimacing. 10/17/17: Pt opens eyes. Pupils 4mm bilaterally. She moves left foot to command but not following with extremities otherwise. She is intubated and on Cardene drip. Left crani clean and dry. TATA drain in place. 10/18: When seen this afternoon the patient is awake in bed. She is intubated and on CPAP/PSV. She has no sedation infusing. She did not follow any commands. She moved the left upper and both lower extremities to stimulation but not the right upper. Nursing reported that she did move the left foot a couple times today to command and earlier became agitated and was moving both upper extremities spontaneously. <Julio Ricketts E - Last Filed: 10/18/17 16:33> Interval history: The exam, history, and the medical decision-making described in the above note were completed with the assistance of the mid-level provider. I reviewed and agree with the findings presented. I attest that I had a [id number] encounter with the patient on the same day, and personally performed and documented my assessment and findings in the medical record. Patient remains awake and relatively alert on exam. She has moderate bilateral conjugate gaze, but does not really focus or follow well with her eyes. She appears to intermittently move her left upper and lower extremity mild to command. Otherwise has moderate upper extremity flexion-withdrawal to extremity deep pain and sternal rub. Plan to discontinue compressing the drain bulb and recheck CT scan of the head on 10/19/2017 with possible drain removal. <Richard Kaba - Last Filed: 10/18/17 19:27> Physical Exam Vital signs: Vital Signs 10/17/17 18:00 10/17/17 19:43 10/17/17 19:47 Temperature Pulse Rate 74 84 Respiratory Rate 15 15 Blood Pressure Pulse Oximetry 97 10/17/17 20:00 10/17/17 22:00 10/17/17 23:19 Temperature 98.7 F Pulse Rate 91 H 87 Respiratory Rate 15 Blood Pressure 140/63 Pulse Oximetry 99 100 10/18/17 00:00 10/18/17 02:00 10/18/17 04:00 Temperature 97.6 F 99.2 F Pulse Rate 81 82 92 H Respiratory Rate 16 Blood Pressure 117/57 L 125/65 Pulse Oximetry 97 10/18/17 04:07 10/18/17 04:56 10/18/17 06:00 Temperature Pulse Rate 82 Respiratory Rate 16 15 Blood Pressure Pulse Oximetry 97 98 10/18/17 06:16 10/18/17 07:24 10/18/17 07:28 Temperature 99.2 F Pulse Rate 83 Respiratory Rate 15 15 10 L Blood Pressure 141/65 H Pulse Oximetry 97 10/18/17 08:00 10/18/17 10:00 10/18/17 12:00 Temperature 98.8 F 98.1 F Pulse Rate 85 85 78 Respiratory Rate 15 20 Blood Pressure 131/60 121/61 Pulse Oximetry 99 100 10/18/17 13:09 10/18/17 13:25 Temperature 98.3 F 98.4 F Pulse Rate 85 84 Respiratory Rate 16 18 Blood Pressure 128/56 L 168/74 H Pulse Oximetry 99 99 Intake & Output 10/17/17 10/18/17 10/18/17 18:59 06:59 18:59 Intake Total 1989 / 1989 2187 / 2187 0 / 0 Output Total 1450 / 1450 1270 / 1270 Balance 540 / 540 917 / 917 0 / 0 Weight 73.3 kg 73.3 kg Intake: IV 305 / 305 205 / 205 KCl 20 mEq Premix Inj 20 meq In 200 / 200 100 / 100 100 ml @ 50 mls/hr IV.SIG Q2H PRN Rx#:[id number] Keppra Inj 500 MG In NS Inj 100 105 / 105 105 / 105 ML @ 420 mls/hr IV.SIG Q12HR CAREY Rx#:[id number] Oral 0 / 0 0 / 0 Tube Feeding 1225 / 1225 400 / 400 Tube Irrigant 60 / 60 60 / 60 Water Bolus Amount 400 / 400 400 / 400 Other 1122 / 1122 Intake (Blood Product) Amt 0 / 0 Rbc As-3 Leukoreduced Unit 0 / 0 [id number] Output: Urine 1200 / 1200 Stool 0 / 0 0 / 0 Urine Amount (Catheter) 1250 / 1250 Indwelling Urethral Catheter 1250 / 1250 Wound Drainage 200 / 200 70 / 70 Posterior Head TATA Drain 200 / 200 70 / 70 Other: Other Intake Source Saline Solution # Bowel Movements 0 0 Narrative: GENERAL: Awake & alert. Intubated & mechanically ventilated. No sedation. No apparent distress. HEENT: Normocephalic. Well approximated surgical incisions w/sutures intact, no evident drainage, erythema or streaking, TATA drain to bulb suction w/ serosanguinous-coloured drainage. Pupils 2 mm reactive, does not appear to track. MUSCULOSKELETAL: Moved LUE & BLE to stimulation. No evident clubbing or deformity. NEUROLOGICAL: Awake & alert. Pupils 2mm reactive, does not appear to track. Nonverbal, intubated. Did not follow any commands. Moved LUE & RLE to local noxious stimulation but withdrew the left foot as soon as it was touched. She had no response w/RUE to local noxious stimulation but did have facial grimacing. She did move the left side extremities, shaking them , with noxious stimulation to the right side extremities. - Urinary Catheter Management Indwelling Urethral Catheter Cath placed during this visit: no Reason for continuing: Hourly intake/output <Julio Ricketts E - Last Filed: 10/18/17 16:33> Vital signs: Vital Signs 10/17/17 19:43 10/17/17 19:47 10/17/17 20:00 Temperature 98.7 F Pulse Rate 84 91 H Respiratory Rate 15 15 Blood Pressure 140/63 Pulse Oximetry 97 99 10/17/17 22:00 10/17/17 23:19 10/18/17 00:00 Temperature 97.6 F Pulse Rate 87 81 Respiratory Rate 15 16 Blood Pressure 117/57 L Pulse Oximetry 100 10/18/17 02:00 10/18/17 04:00 10/18/17 04:07 Temperature 99.2 F Pulse Rate 82 92 H Respiratory Rate 16 Blood Pressure 125/65 Pulse Oximetry 97 97 10/18/17 04:56 10/18/17 06:00 10/18/17 06:16 Temperature 99.2 F Pulse Rate 82 83 Respiratory Rate 15 15 Blood Pressure 141/65 H Pulse Oximetry 98 10/18/17 07:24 10/18/17 07:28 10/18/17 08:00 Temperature 98.8 F Pulse Rate 85 Respiratory Rate 15 10 L 15 Blood Pressure 131/60 Pulse Oximetry 97 99 10/18/17 10:00 10/18/17 12:00 10/18/17 13:09 Temperature 98.1 F 98.3 F Pulse Rate 85 78 85 Respiratory Rate 20 16 Blood Pressure 121/61 128/56 L Pulse Oximetry 100 99 10/18/17 13:25 10/18/17 14:00 10/18/17 16:00 Temperature 98.4 F 98.7 F Pulse Rate 84 88 91 H Respiratory Rate 18 16 Blood Pressure 168/74 H 142/66 H Pulse Oximetry 99 98 10/18/17 16:54 10/18/17 18:00 Temperature Pulse Rate 97 H Respiratory Rate 15 Blood Pressure Pulse Oximetry 98 Intake & Output 10/18/17 10/18/17 10/19/17 06:59 18:59 06:59 Intake Total 2187 / 2187 575 / 575 Output Total 1270 / 1270 1600 / 1600 Balance 917 / 917 -1025 / -1025 Weight 73.3 kg Intake: IV 205 / 205 KCl 20 mEq Premix Inj 20 meq In 100 / 100 100 ml @ 50 mls/hr IV.SIG Q2H PRN Rx#:[id number] Keppra Inj 500 MG In NS Inj 100 105 / 105 ML @ 420 mls/hr IV.SIG Q12HR CAREY Rx#:[id number] Oral 0 / 0 Tube Feeding 400 / 400 175 / 175 Tube Irrigant 60 / 60 Water Bolus Amount 400 / 400 Other 1122 / 1122 Intake (Blood Product) Amt 400 / 400 Rbc As-3 Leukoreduced Unit 400 / 400 [id number] Output: Urine 1200 / 1200 Stool 0 / 0 Urine Amount (Catheter) 1600 / 1600 Indwelling Urethral Catheter 1600 / 1600 Wound Drainage 70 / 70 Posterior Head TATA Drain 70 / 70 Other: Other Intake Source Saline Solution # Bowel Movements 0 0 - Urinary Catheter Management Indwelling Urethral Catheter Cath placed during this visit: no <Richard Kaba - Last Filed: 10/18/17 19:27> Assessment and Plan - Plan Impression: 1. Stable neurologic exam and postoperative CT scan following evacuation acute left hemisphere subdural hematoma 10/14/2017. She is relatively alert on 10/15/17 with initial sedation weaning 2. Anemia 3. Hypokalemia 4. Seizure disorder Patient awake & alert. Not following commands. Moves LUE & RLE to noxious stimulation and the LLE to avoid it, no response w/RUE. Prognosis guarded. TATA drain with 270 mL output for the past 24 hrs as of shift change this morning. Reviewed labs for today. Slight drop in haemoglobin level. Worsening of thrombocytopenia. Sodium 150. eGFR 80. Plan: 1. Continue present ventilatory support. Discussed with marriage counselor. Okay to wean sedation. 2. Hold subdural drain bulb compression. 3. Monitor hemoglobin 4. Continue Keppra. Dilantin held. Level remains high today 5. Electrolyte replacement 6. CT brain w/o contrast in AM. <Julio Ricketts - Last Filed: 10/18/17 16:33> - Assessment (1) Subdural hematoma, acute Code(s): S06.5X9A - Traumatic subdural hemorrhage with loss of consciousness of unspecified duration, initial encounter Status: Acute <Richard Kaba - Last Filed: 10/18/17 19:27>
--- NOTE | 2017-10-19 04:40 | CT ---
EXAM DATE: 10/19/2017 4:30 AM EDT AGE/SEX: 87 years / Female INDICATIONS: Cephalgia, follow up hemorrhage post craniotomy. CLINICAL DATA: This is the patient's subsequent encounter. Patient reports that signs and symptoms h ave been present for 1 week and indicates a pain score of Nonresponsive. MEDICAL/SURGICAL HISTORY: Non-responsive. Craniotomy. RADIATION DOSE: 56.35 CTDI (mGy) COMPARISON: . TECHNIQUE: CT of the head without contrast. Using automated exposure control and adjustment of the mA and/or kV according to patient size, radiation dose was kept as low as reasonably achievable to ob tain optimal diagnostic quality images. DICOM format image data is available electronically for revi ew and comparison. FINDINGS: Left subdural drain remains in place. There is residual subacute left-sided subdural blood present me asuring approximately 13 mm in maximal thickness along the left parietal convexity and 9 mm in marivel l thickness adjacent to the falx. This is nonsignificantly changed. A large, nonacute subdural hemato ma is seen along the right convexity, measures 13 mm in maximal thickness. There is approximately 6 m m of midline shift, actually to the left. Bifrontal pneumocephaly worse. No mass lesion. No evidence of an acute ischemic event. CONCLUSION: 1. 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 There is approximately 6 mm of leftward midline shift. No new bleed. 2. Increased bifrontal subdural pneumocephaly. Electronically signed by: Efrain Sarah MD 10/19/2017 4:39 AM EDT
[2017-10-19] MEDS: Levothyroxine 100 MCG Tablet PO SCH (05:59)
[2017-10-19] MEDS: Chlorhexidine Gluconate 2% 1 Pack (2 Cloths) TOPICAL SCH (05:59)
[2017-10-19] MEDS: Oral Hygiene Kit OROPHARYNG SCH ×3 (06:00→15:47)
[2017-10-19] MEDS: Senna/Docusate Sodium 8.6/50 MG Tablet PO SCH ×3 (09:21→20:50)
[2017-10-19] MEDS: Famotidine PF Inj 20 MG/2 ML Vial IV.PUSH SCH ×3 (09:21→20:47)
[2017-10-19] MEDS: Chlorhexidine Gluconate 0.12% Liq 15 ML UDC SWISH-SPIT SCH ×3 (09:21→20:52)
--- NOTE | 2017-10-19 09:34 | XR ---
EXAM DATE: 10/19/2017 9:24 AM EDT AGE/SEX: 87 years / Female INDICATIONS: Respiratory disease. CLINICAL DATA: This is the patient's subsequent encounter. Patient reports that signs and symptoms h ave been present for 3 days and indicates a pain score of Nonresponsive. MEDICAL/SURGICAL HISTORY: . Hypercholesterolemia. Hypertension. Thyroid disease. Dizziness. Ant icoagulant therapy. Hyperlipidemia. Deep vein thrombosis. Arthritis. Osteoporosis. . Tonsillectomy. Appendectomy. Hysterectomy. Right eye cataract surgery. Cholecystectomy. Right knee arthroscopic. [place] [facility] [place]16/[place]. . FINDINGS: Supportive devices are in stable position. Persistent airspace disease is identified in the left base. Heart and mediastinal structures are stable. CONCLUSION: No significant change. Persistent left basilar airspace disease. Electronically signed by: Angel Jaeger MD 10/19/2017 9:32 AM EDT
[2017-10-19] MEDS: amLODIPine 10 MG Tablet NG/OG SCH (09:52)
[2017-10-19 10:39] LABS: Hematocrit 28.6 % (35.0-46.0); Hemoglobin 9.3 gm/dL (11.6-15.3); Mean Corpuscular HGB Conc 32.5 % (32.0-36.0); Mean Corpuscular Hemoglobin 24.7 pg (27.0-34.0); Mean Platelet Volume 8.9 fL (7.0-11.0); Platelet Count 148 th/mm3 (150-450); Red Blood Count 3.76 mil/mm3 (4.00-5.30); Red Cell Distribution Width 21.3 % (11.6-17.2); White Blood Count 14.4 th/mm3 (4.0-11.0)
--- NOTE | 2017-10-19 11:04 | P.PNNS ---
Subjective Interval history: Patient has undergone left craniotomy evacuation for left hemisphere acute subdural hematoma on 10/13/2017. Pre-existing history of seizures with additional seizure activity noted preoperative. Patient intubated prior to surgery for decline in neurologic exam with follow-up CT scan 10/13/2017 revealing mild increase in left hemisphere subdural hematoma without additional mass-effect. 10/14/2017: CT scan head with good evacuation of left hemisphere subdural hematoma. Persistent enlargement of right subdural-subarachnoid space. Persistent mild to moderate left convexity subarachnoid hemorrhage. Ventricles remain symmetric. No significant pneumocephalus. Hemoglobin 7.8. Positive hypokalemia. No further seizure activity reported. Remains intubated with mild sedation. 10/15/2017: Patient is now postop day #2 status post left craniotomy for evacuation of subdural hematoma. She remains intubated. Weaning sedation today. No seizure activity noted Still significant CSF output from the drain, now being compressed only once per shift. 10/16: Patient is in bed when seen. She continues to be intubated and mechanically ventilated. She does open her eyes to voice. She is not following any commands but did move the left upper and both lower extremities to noxious stimulation. She had no response with the right upper except for facial grimacing. 10/17/17: Pt opens eyes. Pupils 4mm bilaterally. She moves left foot to command but not following with extremities otherwise. She is intubated and on Cardene drip. Left crani clean and dry. TATA drain in place. 10/18: When seen this afternoon the patient is awake in bed. She is intubated and on CPAP/PSV. She has no sedation infusing. She did not follow any commands. She moved the left upper and both lower extremities to stimulation but not the right upper. Nursing reported that she did move the left foot a couple times today to command and earlier became agitated and was moving both upper extremities spontaneously. 10/19: Patient with eyes closed when seen this morning. She was noted to move the left foot and left hand spontaneously prior to being evaluated. She did not open her eyes to any stimulation. She did move the left side to command and the right to noxious stimulation. She remains intubated and is on CPAP/PSV settings. <Julio Ricketts E - Last Filed: 10/19/17 11:10> Physical Exam Vital signs: Vital Signs 10/18/17 12:00 10/18/17 13:09 10/18/17 13:25 Temperature 98.1 F 98.3 F 98.4 F Pulse Rate 78 85 84 Respiratory Rate 20 16 18 Blood Pressure 121/61 128/56 L 168/74 H Pulse Oximetry 100 99 99 10/18/17 14:00 10/18/17 16:00 10/18/17 16:54 Temperature 98.7 F Pulse Rate 88 91 H Respiratory Rate 16 15 Blood Pressure 142/66 H Pulse Oximetry 98 98 10/18/17 18:00 10/18/17 20:00 10/18/17 20:34 Temperature 99.1 F Pulse Rate 97 H 91 H 91 H Respiratory Rate 18 Blood Pressure 142/67 H Pulse Oximetry 10/18/17 21:16 10/18/17 22:00 10/18/17 23:00 Temperature Pulse Rate 77 Respiratory Rate 18 21 Blood Pressure Pulse Oximetry 98 96 10/19/17 00:00 10/19/17 02:00 10/19/17 03:55 Temperature 99.2 F Pulse Rate 77 84 Respiratory Rate 16 15 Blood Pressure 113/52 L Pulse Oximetry 96 10/19/17 04:00 10/19/17 06:00 10/19/17 08:00 Temperature 99.7 F H 99.4 F Pulse Rate 78 84 91 H Respiratory Rate 15 21 Blood Pressure 128/60 130/62 Pulse Oximetry 97 10/19/17 08:24 Temperature Pulse Rate Respiratory Rate 20 Blood Pressure Pulse Oximetry 98 Intake & Output 10/18/17 10/19/17 10/19/17 18:59 06:59 18:59 Intake Total 680 / 680 1992 Output Total 1600 / 1600 1430 / 1430 Balance -920 / -920 563 / 563 Weight 72.4 kg Intake: IV 105 / 105 Keppra Inj 500 MG In NS Inj 100 105 / 105 ML @ 420 mls/hr IV.SIG Q12HR CAREY Rx#:[id number] Oral 0 / 0 Tube Feeding 175 / 175 449 / 449 Tube Irrigant 120 / 120 Water Bolus Amount 120 / 120 Other 1304 / 1304 Intake (Blood Product) Amt 400 / 400 Rbc As-3 Leukoreduced Unit 400 / 400 [id number] Output: Stool 0 / 0 Urine Amount (Catheter) 1600 / 1600 1400 / 1400 Indwelling Urethral Catheter 1599 / 1600 1400 / 1400 Gastric Drainage 0 / 0 Orogastric Tube 0 / 0 Wound Drainage Posterior Head TATA Drain Other: Other Intake Source Saline Solution # Bowel Movements 0 0 Narrative: GENERAL: Drowsy. Intubated & on CPAP/PSV settings. No sedation. No apparent distress. HEENT: Normocephalic. Well approximated surgical incisions w/sutures intact, no evident drainage, erythema or streaking, TATA drain to bulb suction w/ serosanguinous-coloured drainage. Pupils 2 mm reactive. MUSCULOSKELETAL: Moved LUE & LLE spontaneously & to command. Moved RUE & RLE to stimulation. No evident clubbing or deformity. NEUROLOGICAL: Drowsy. No eye opening to any stimulation. Pupils 2mm reactive. Nonverbal, intubated. Spontaneously moved left foot & left hand. Followed simple commands with left side extremities. She moved the right side extremities to local noxious stimulation. She did move the left side extremities, shaking them, with noxious stimulation to the right side extremities. - Urinary Catheter Management Indwelling Urethral Catheter Cath placed during this visit: yes Reason for continuing: Hourly intake/output Insertion date: 10/12/17 Insertion time: 08:13 <Julio Ricketts - Last Filed: 10/19/17 11:10> - Urinary Catheter Management Indwelling Urethral Catheter Cath placed during this visit: no <Richard Kaba - Last Filed: 12/06/17 23:08> Assessment and Plan - Plan Impression: 1. Stable neurologic exam and postoperative CT scan following evacuation acute left hemisphere subdural hematoma 10/14/2017. She is relatively alert on 10/15/17 with initial sedation weaning 2. Anemia 3. Hypokalemia 4. Seizure disorder Patient drowsy but following commands on left & moving right to noxious stimulation. No eye opening to any stimulation. Prognosis guarded. Past 24 hrs: 99.7 T max. ATTA drain with 30 mL output for the past 24 hrs as of shift change this morning. Reviewed labs for today. Leukocytosis. Improvement in haemoglobin level & thrombocytopenia. Chemistries pending. CT brain demonstrated chronic right & subacute left SDH w/o significant change & 6 mm leftward midline shift; no new haemorrhage; increased bifrontal subdural pneumocephaly. Plan: 1. Continue present ventilatory support. 2. Okay to wean sedation. 3. Hold subdural drain bulb compression. 4. Continue Keppra. 5. Electrolyte replacement 6. Monitor hemoglobin <Julio Ricketts - Last Filed: 10/19/17 11:10> - Assessment (1) Subdural hematoma, acute Code(s): S06.5X9A - Traumatic subdural hemorrhage with loss of consciousness of unspecified duration, initial encounter Status: Acute - Attending Attestation The exam, history, and the medical decision-making described in the above note were completed with the assistance of the mid-level provider. I reviewed and agree with the findings presented. I attest that I had a [id number] encounter with the patient on the same day, and personally performed and documented my assessment and findings in the medical record. <Richard Kaba - Last Filed: 12/06/17 23:08>
[2017-10-19 11:12] LABS: Alanine Aminotransferase 37 U/L (10-53); Albumin 1.7 g/dL (3.4-5.0); Alkaline Phosphatase 87 U/L (45-117); Anion Gap 10 meq/L (5-15); Aspartate Aminotransferase 36 U/L (15-37); Blood Urea Nitrogen 15 mg/dL (7-18); Calcium 8.2 mg/dL (8.5-10.1); Carbon Dioxide 23.3 meq/L (21.0-32.0); Chloride 111 meq/L (98-107); Glomerular Filtration Rate 71 mL/min (>89); Glucose,Random 159 mg/dL (74-106); Potassium 3.8 meq/L (3.5-5.1); Sodium 144 meq/L (136-145); Total Protein 5.4 g/dL (6.4-8.2)
--- NOTE | 2017-10-19 11:28 | P.PNCC ---
Subjective Subjective Remarks/Hospital Course: Patient is a 87-year-old female with past medical history significant for seizure disorder, history of DVT on Coumadin, history of recent skin cancer removed from scalp, hypothyroidism who presented to the emergency department for recurrent falls. She fell once yesterday and twice today. With last fall she did hit her head. Stat CT of the head showed 1 cm left subdural hemorrhage with moderate mass-effect left-sided subarachnoid hemorrhage and cortical contusion. Patient's INR was 4.4, patient was ordered to receive 10 mg vitamin K , and initially was ordered K Centra. Due to in availability of Kcentra 3 units of FFP was ordered. Dr. Kaba was consulted with advised reversal of anticoagulation first. Critical care was contacted for admission I evaluated the patient in the ICU. She is anxious but hemodynamically stable. There is mild facial droop and mild right-sided weakness right upper extremity. Three units of FFP, vitamin K done. I discussed with Dr. Kaba. He will re evaluate for surgical evacuation after complete reversal of anticoagulation. BUN/creatinine slightly elevated 23/1.24. Give 1 unit normal saline bolus and maintenance fluid at 50 mL/h with normal saline. Also start 2 % saline and 30 mL/h to target sodium more than 145. Her Dilantin level was 32.5 which is supratherapeutic corrected level is 37. Will hold Dilantin no other seizure prophylaxis needed at this time 10/13/17: Approximately at about 5:30 AM developed focal seizures, was bolused with a single dose of Keppra thousand milligrams IV 1. Currently on 500 mg IV twice daily. Dilantin uncorrected 27.7. CT head today shows there is a slight increase in size of the left subdural hematoma, with significant increase in posterior component. Hb 6.7 today, repeat CBC is pending. Check ABG stat as patient is more somnolent. But wakes up easily appears to be protecting airway at this time 10/14/17: s/p evacuation of left SDH, post op CT shows good evacuation with some residual blood. Pneumocephalus present. No further seizures postop. Dilantin level remains high at 27.7 7/2: Remains intubated critical. Sodium 155. Hypertonic saline. Opening eyes to voice when sedation held, and tracks. Hemodynamically remains stable. Dilantin level 23.3 today 7/3 Hypertensive when sedation was weaned so started on cardene early this morning. CT brain to be repeated today per NSG. Follows commands by wiggling left toes. Subjective: 10/17 Follows command with minimal movement L toes. On CPAP 01/18 for couple of hours but does not appear she would protect airway. Dilantin downtrending, albumin corrected is 32 10/18: Orally intubated on mechanical ventilation. Awake and alert. Tolerating tube feeds. Tolerating CPAP trial 10/19: Remains orally intubated on mechanical ventilation. Transfused 1 unit PRBCs yesterday. Tolerating tube feeds. Significant respiratory secretions noted. Will initiate empiric antibiotics as patient has leukocytosis. Sputum Gram stain and cultures ordered. Objective Vital Signs / I&O: Vital Signs 10/18/17 12:00 10/18/17 13:09 10/18/17 13:25 Temperature 98.1 F 98.3 F 98.4 F Pulse Rate 78 85 84 Respiratory Rate 20 16 18 Blood Pressure 121/61 128/56 L 168/74 H Pulse Oximetry 100 99 99 10/18/17 14:00 10/18/17 16:00 10/18/17 16:54 Temperature 98.7 F Pulse Rate 88 91 H Respiratory Rate 16 15 Blood Pressure 142/66 H Pulse Oximetry 98 98 10/18/17 18:00 10/18/17 20:00 10/18/17 20:34 Temperature 99.1 F Pulse Rate 97 H 91 H 91 H Respiratory Rate 18 Blood Pressure 142/67 H Pulse Oximetry 10/18/17 21:16 10/18/17 22:00 10/18/17 23:00 Temperature Pulse Rate 77 Respiratory Rate 18 21 Blood Pressure Pulse Oximetry 98 96 10/19/17 00:00 10/19/17 02:00 10/19/17 03:55 Temperature 99.2 F Pulse Rate 77 84 Respiratory Rate 16 15 Blood Pressure 113/52 L Pulse Oximetry 96 10/19/17 04:00 10/19/17 06:00 10/19/17 08:00 Temperature 99.7 F H 99.4 F Pulse Rate 78 84 91 H Respiratory Rate 15 21 Blood Pressure 128/60 130/62 Pulse Oximetry 97 10/19/17 08:24 10/19/17 10:00 Temperature Pulse Rate 101 H Respiratory Rate 20 Blood Pressure Pulse Oximetry 98 Intake & Output 10/18/17 10/19/17 10/19/17 18:59 06:59 18:59 Intake Total 680 / 680 1992 Output Total 1600 / 1600 1430 / 1430 Balance -920 / -920 563 / 563 Weight 72.4 kg Intake: IV 105 / 105 Keppra Inj 500 MG In NS Inj 100 105 / 105 ML @ 420 mls/hr IV.SIG Q12HR CAREY Rx#:[id number] Oral 0 / 0 Tube Feeding 175 / 175 449 / 449 Tube Irrigant 120 / 120 Water Bolus Amount 120 / 120 Other 1304 / 1304 Intake (Blood Product) Amt 400 / 400 Rbc As-3 Leukoreduced Unit 400 / 400 [id number] Output: Stool 0 / 0 Urine Amount (Catheter) 1600 / 1600 1400 / 1400 Indwelling Urethral Catheter 1600 / 1600 1400 / 1400 Gastric Drainage 0 / 0 Orogastric Tube 0 / 0 Wound Drainage 30 / 30 Posterior Head TATA Drain 30 / 30 Other: Other Intake Source Saline Solution # Bowel Movements 0 0 Result Diagrams: 10/19/17 08:20 10/19/17 08:20 Objective Remarks: GENERAL: Elderly female on sedation with fentanyl 25 mcg/hr, orotracheally intubated. SKIN: Warm/dry. HEAD: Small abrasion tip of nose. S/p L craniotomy with nataliya, c/d/i. TATA in place. EYES: Pupils equal and round, reactive. 3 to 2 ENT: No nasal bleeding or discharge. Mucous membranes pink and moist. Orotracheally intubated NECK: Trachea midline. No JVD. CARDIOVASCULAR: Regular rate and rhythm. Grade 2 systolic murmur heard in all areas RESPIRATORY: On CPAP, No accessory muscle use. Breath sounds equal bilaterally; course. GASTROINTESTINAL: Abdomen soft, non-tender, nondistended. MUSCULOSKELETAL: No obvious deformities. No clubbing. 1-2+ pitting edema BUE, 1 + BLE. NEUROLOGICAL: Intubated. Pupils reactive as above equal. Opens eyes, makes eye contact and tracks. Not following commands. R side flaccid, + facial grimace with right peripheral noxious stimuli. Assessment and Plan - Assessment and Plan Plan: A/P Assessment and Plan NEURO: Status post fall with left subdural, subarachnoid hemorrhage and cortical contusion, moderate mass-effect Dilantin toxicity Recurrent seizures Seizure disorder -CT of the head 10/12: 1 cm left subdural hemorrhage with moderate mass-effect left-sided SAH and cortical contusion. Repeat CT 10/13 increasing subdural hemorrhage -Status post craniotomy and evacuation of left subdural hemorrhage 10/13/2017. Postop CT showed improved subdural hemorrhage with some pneumocephalus. -TATA -Repeat CT brain 07/17 - small IVH without hydrocephalus -No further seizures postop. Albumin corrected Dilantin level remains high on . Will follow up. -Continue Keppra 500 mg IV every 12. -EEG 10/15 slightly higher amplitude on the left. No seizure activity. -Replace calcium, keep magnesium above 2 -Off versed. Wean fentanyl infusions. NSG also agreeable to sedation vacation. -Recurrent fall was most likely secondary to Dilantin toxicity. -off 2% saline -Avoid hyponatremia hypomagnesemia hypoxia -B12 supplementation as per below. RESP: Acute respiratory failure -PRVC/AC -SBT daily but mental status precludes extubation at this time. -DuoNeb every 6 hours as needed CV: Hypertension -KVO MIVF. -off 2% Saline -IV labetalol 10 mg every 2 hours as needed for SBP more than 150 -Wean off cardene drip. Increase Norvasc 10 mg daily. GI: - Jevity 1.5 @ 5 45/hr per nutrition recs. -IV famotidine : Acute kidney injury -Monitor renal function closely. Haley catheter for accurate intake output -Lasix 20 mg IV on 10/17 and 10/18 to mobilize fluid. ID: Leukocytosis noted. Increasing pulmonary secretions. Sputum Gram stain and cultures ordered. Correction of previous note. Patient is allergic to penicillin. Will add Levaquin for empiric antibiotic coverage on 10/19. HEME: Supratherapeutic INR On chronic Coumadin for DVT on admission. Anemia Vitamin B12 deficiency -s/p 3 units FFP, 10 mg IV vitamin K given -Status post 1 unit PRBC 10/13/2017. Ordered 1 unit PRBCs on 10/18 for hemoglobin of 7.2 -Continue vitamin B12 supplementation 1000 mcg IM daily. ENDO: Hypothyroidism Hypocalcemia -Continue Synthroid 100 mcg per tube daily. -Electrolyte replacement per protocol PROPH: -Bilateral lower extremity SCDs. Chemical DVT prophylaxis contraindicated. IV famotidine LINES: -Right IJ central line placed in OR 10/13/2017, discontinued 10/17. Per IV Level 3 followup.
[2017-10-19] MEDS: Levofloxacin 500 mg Premix Inj 500 MG/100 ML PIGGYBACK IV.SIG SCH (13:04)
[2017-10-19] MEDS: niCARdipine Inj 50 MG in Sodium Chlor 0.9% Inj 480 ML IV.CONT PRN (20:46)
[2017-10-20 06:16] LABS: Baso % (Auto) 0.3 % (0.0-2.0); Eos # (Auto) 0.3 th/mm3 (0.0-0.4); Eos % (Auto) 2.9 % (0.0-4.0); Hematocrit 27.4 % (35.0-46.0); Hemoglobin 8.9 gm/dL (11.6-15.3); Lymph # (Auto) 1.3 th/mm3 (1.0-4.8); Lymph % (Auto) 11.7 % (9.0-44.0); Mean Corpuscular HGB Conc 32.4 % (32.0-36.0); Mean Corpuscular Hemoglobin 24.7 pg (27.0-34.0); Mean Corpuscular Volume 76.4 fL (80.0-100.0); Mean Platelet Volume 8.8 fL (7.0-11.0); Mono # (Auto) 1.6 th/mm3 (0.0-0.9); Mono % (Auto) 14.1 % (0.0-8.0); Neut # (Auto) 8.2 th/mm3 (1.8-7.7); Platelet Count 158 th/mm3 (150-450); Red Blood Count 3.59 mil/mm3 (4.00-5.30); Red Cell Distribution Width 21.6 % (11.6-17.2); White Blood Count 11.5 th/mm3 (4.0-11.0)
[2017-10-20] MEDS: Oral Hygiene Kit OROPHARYNG SCH ×4 (06:16→15:24)
[2017-10-20] MEDS: Chlorhexidine Gluconate 2% 1 Pack (2 Cloths) TOPICAL SCH (06:16)
[2017-10-20] MEDS: Levothyroxine 100 MCG Tablet PO SCH (06:16)
[2017-10-20] MEDS: Propofol 1000 mg/100 ml Inj 1,000 MG/100 ML BOTTLE IV.CONT PRN ×3 (06:19→21:35)
[2017-10-20 06:34] LABS: Alanine Aminotransferase 62 U/L (10-53); Albumin 1.6 g/dL (3.4-5.0); Alkaline Phosphatase 91 U/L (45-117); Anion Gap 10 meq/L (5-15); Aspartate Aminotransferase 74 U/L (15-37); Blood Urea Nitrogen 16 mg/dL (7-18); Carbon Dioxide 23.3 meq/L (21.0-32.0); Chloride 110 meq/L (98-107); Glomerular Filtration Rate 66 mL/min (>89); Glucose,Random 156 mg/dL (74-106); Potassium 3.5 meq/L (3.5-5.1); Sodium 143 meq/L (136-145); Total Protein 5.1 g/dL (6.4-8.2)
[2017-10-20] MEDS: niCARdipine Inj 50 MG in Sodium Chlor 0.9% Inj 480 ML IV.CONT PRN ×2 (07:51→21:14)
[2017-10-20 08:28] LABS: Eosinophils 1 % (0-4); Lymphocytes 12 % (9-44); Metamyelocytes 1 % (0-1); Monocytes 7 % (0-8); Platelet Estimate Normal (Normal); Platelet Morphology Normal (Normal)
[2017-10-20] MEDS: Senna/Docusate Sodium 8.6/50 MG Tablet PO SCH ×2 (09:53→21:18)
[2017-10-20] MEDS: amLODIPine 10 MG Tablet NG/OG SCH (09:53)
[2017-10-20] MEDS: Famotidine PF Inj 20 MG/2 ML Vial IV.PUSH SCH (09:53)
[2017-10-20] MEDS: Chlorhexidine Gluconate 0.12% Liq 15 ML UDC SWISH-SPIT SCH ×2 (09:54→21:18)
--- NOTE | 2017-10-20 13:30 | P.PNCC ---
Subjective Subjective Remarks/Hospital Course: Patient is a 87-year-old female with past medical history significant for seizure disorder, history of DVT on Coumadin, history of recent skin cancer removed from scalp, hypothyroidism who presented to the emergency department for recurrent falls. She fell once yesterday and twice today. With last fall she did hit her head. Stat CT of the head showed 1 cm left subdural hemorrhage with moderate mass-effect left-sided subarachnoid hemorrhage and cortical contusion. Patient's INR was 4.4, patient was ordered to receive 10 mg vitamin K , and initially was ordered K [facility]. Due to in availability of Kcentra 3 units of FFP was ordered. Dr. Kaba was consulted with advised reversal of anticoagulation first. Critical care was contacted for admission I evaluated the patient in the ICU. She is anxious but hemodynamically stable. There is mild facial droop and mild right-sided weakness right upper extremity. Three units of FFP, vitamin K done. I discussed with Dr. Kaba. He will re evaluate for surgical evacuation after complete reversal of anticoagulation. BUN/creatinine slightly elevated 23/1.24. Give 1 unit normal saline bolus and maintenance fluid at 50 mL/h with normal saline. Also start 2 % saline and 30 mL/h to target sodium more than 145. Her Dilantin level was 32.5 which is supratherapeutic corrected level is 37. Will hold Dilantin no other seizure prophylaxis needed at this time 10/13/17: Approximately at about 5:30 AM developed focal seizures, was bolused with a single dose of Keppra thousand milligrams IV 1. Currently on 500 mg IV twice daily. Dilantin uncorrected 27.7. CT head today shows there is a slight increase in size of the left subdural hematoma, with significant increase in posterior component. Hb 6.7 today, repeat CBC is pending. Check ABG stat as patient is more somnolent. But wakes up easily appears to be protecting airway at this time 10/14/17: s/p evacuation of left SDH, post op CT shows good evacuation with some residual blood. Pneumocephalus present. No further seizures postop. Dilantin level remains high at 27.7 7/2: Remains intubated critical. Sodium 155. Hypertonic saline. Opening eyes to voice when sedation held, and tracks. Hemodynamically remains stable. Dilantin level 23.3 today 7/3 Hypertensive when sedation was weaned so started on cardene early this morning. CT brain to be repeated today per NSG. Follows commands by wiggling left toes. 10/17 Follows command with minimal movement L toes. On CPAP 01/18 for couple of hours but does not appear she would protect airway. Dilantin downtrending, albumin corrected is 32 10/18: Orally intubated on mechanical ventilation. Awake and alert. Tolerating tube feeds. Tolerating CPAP trial 10/19: Remains orally intubated on mechanical ventilation. Transfused 1 unit PRBCs yesterday. Tolerating tube feeds. Significant respiratory secretions noted. Will initiate empiric antibiotics as patient has leukocytosis. Sputum Gram stain and cultures ordered. Subjective: 10/20: Afebrile. Remains on oral tracheal intubation. He does have significant secretions with culture previously. Started on levofloxacin yesterday. Currently on CPAP trial. Objective Vital Signs / I&O: Vital Signs 10/19/17 14:00 10/19/17 16:00 10/19/17 16:06 Temperature 98.3 F Pulse Rate 95 H 96 H Respiratory Rate 15 15 Blood Pressure 120/59 L Pulse Oximetry 98 100 10/19/17 18:00 10/19/17 20:00 10/19/17 20:03 Temperature 98.4 F Pulse Rate 91 H 90 Respiratory Rate 15 15 Blood Pressure 138/64 Pulse Oximetry 99 10/19/17 22:00 10/20/17 00:00 10/20/17 02:00 Temperature 100.1 F H Pulse Rate 86 87 87 Respiratory Rate 15 Blood Pressure 125/59 L Pulse Oximetry 10/20/17 02:52 10/20/17 04:00 10/20/17 06:00 Temperature 100.1 F H Pulse Rate 84 85 Respiratory Rate 15 15 Blood Pressure 125/58 L Pulse Oximetry 100 10/20/17 08:00 10/20/17 10:00 10/20/17 12:00 Temperature 99.2 F 99.3 F Pulse Rate 88 94 H 92 H Respiratory Rate 15 22 Blood Pressure 123/56 L 124/58 L Pulse Oximetry 97 Intake & Output 10/19/17 10/20/17 10/20/17 18:59 06:59 18:59 Intake Total 1180 / 1180 2686 / 2686 100 / 100 Output Total 1510 / 1510 420 / 420 Balance -330 / -330 2266 / 2266 100 / 100 Weight 71.6 kg Intake: IV 705 / 705 605 / 605 100 / 100 Diprivan 1000 mg/100 ml Inj 1, 100 / 100 000 mg In 100 ml @ 5 MCG/KG/MIN 1.74 mls/hr IV.CONT TITRATE PRN Rx#:[id number] Cardene Inj 50 MG In NS Inj 480 500 / 500 500 / 500 ML @ 5 MG/HR 50 mls/hr IV.CONT TITRATE PRN Rx#:[id number] Levaquin 500 mg Premix Inj 500 100 / 100 mg In 100 ml @ 100 mls/hr IV. SIG Q24H CAREY Rx#:[id number] Keppra Inj 500 MG In NS Inj 100 105 / 105 105 / 105 ML @ 420 mls/hr IV.SIG Q12HR CAREY Rx#:[id number] Oral 0 / 0 Tube Feeding 475 / 475 537 / 537 Water Bolus Amount 240 / 240 Other 1304 / 1304 Output: Urine 400 / 400 Stool 0 / 0 Urine Amount (Catheter) 1500 / 1500 Indwelling Urethral Catheter 1500 / 1500 Gastric Drainage 0 / 0 Orogastric Tube 0 / 0 Wound Drainage 10 10 20 / 20 Posterior Head TATA Drain 20 / 20 Other: Other Intake Source Saline Solution # Bowel Movements 0 0 Result Diagrams: 10/20/17 05:00 10/20/17 05:00 Other Results: Microbiology 10/19/17 09:00 Sputum - Endotracheal Gram Stain - Final Imaging: ITS Impressions Head CT 10/14/17 00:00 CONCLUSION: 1. Interval left craniotomy with partial evacuation of left subdural hematoma and placement of a left subdural drain. Pneumocephalus present. Stable right subdural hygroma. No new intracranial hemorrhage. Head CT 10/16/17 00:00 CONCLUSION: 1. The only interval change has been the development of small volume intraventricular hemorrhage bilaterally without hydrocephalus. 2. Stable left-sided subdural hematoma. Venous Doppler Study 10/16/17 00:00 CONCLUSION: 1. The study is negative for bilateral lower extremity deep venous thrombosis. Chest X-Ray 10/16/17 06:00 CONCLUSION: Left lower lung consolidation. Chest X-Ray 10/19/17 00:00 CONCLUSION: No significant change. Persistent left basilar airspace disease. Head CT 10/19/17 00:00 CONCLUSION: 1. 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 There is approximately 6 mm of leftward midline shift. No new bleed. 2. Increased bifrontal subdural pneumocephaly. Objective Remarks: GENERAL: 87-year-old female currently orotracheally intubated. SKIN: Warm/dry. With rashes HEAD: Small abrasion tip of nose. S/p L craniotomy with nataliya, c/d/i. TATA in place. EYES: Pupils equal and round, reactive. Around 2 mm bilaterally ENT: No nasal bleeding or discharge. Mucous membranes pink and moist. Orotracheally intubated NECK: Trachea midline. No JVD. CARDIOVASCULAR: Regular rate and rhythm. S1, S2 predose 4. Grade 2 systolic murmur heard in sternal RESPIRATORY: Coarse rhonchorous breath sounds are appreciated anteriorly. No wheezing.. GASTROINTESTINAL: Abdomen soft, non-tender, nondistended. MUSCULOSKELETAL: No obvious deformities. No clubbing. 1-2+ pitting edema BUE, 1 + BLE. NEUROLOGICAL: Intubated. Pupils reactive as above equal. Opens eyes, makes eye contact and tracks. Spontaneously movement of left upper extremity. Follows simple commands with left upper lower extremity. Withdraws to noxious stimuli right lower greater than right upper extremity.. Assessment and Plan - Assessment and Plan Plan: NEURO/PSYCH: Status post fall with left subdural, subarachnoid hemorrhage and cortical contusion, moderate mass-effect Status post left frontal craniotomy with evacuation of subdural hematoma Dilantin toxicity Recurrent seizures Seizure disorder History of right eye cataract/IOC -CT of the head 10/12: 1 cm left subdural hemorrhage with moderate mass-effect left-sided SAH and cortical contusion. Repeat CT 10/13 increasing subdural hemorrhage. Repeat CT brain 10/16 - small IVH without hydrocephalus -CT brain 10/19 - chronic right and subacute left subdural hematomas are again noted and not significantly changed. There is approximately 6 mm of leftward midline shift. No new bleed. Increased bifrontal subdural pneumocephaly -Status post craniotomy and evacuation of left subdural hemorrhage 10/13/2017. Postop CT showed improved subdural hemorrhage with some pneumocephalus. Followed by neurology/Dr. Tatum -Continue levetiracetam 500 mg IV every 12. -EEG 10/15 slightly higher theta amplitude on the left. No epileptiform activity. -Recurrent fall was most likely secondary to Dilantin toxicity which she is currently off. -B12 supplementation as per below. RESP: Acute respiratory failure -PRVC/AC ventilation. -Albuterol/ipratropium aerosols every 4 hours with albuterol aerosols every 2 hours as needed for dyspnea -SBT daily but mental status precludes extubation at this time. -Albuterol/ipratropium every 4 hours with albuterol aerosols every 2 hours as needed for dyspnea CV: Hyperlipidemia Essential hypertension -Wean off nicardipine drip. -IV labetalol 10 mg every 2 hours as needed for SBP more than 150 Currently on amlodipine 10 mg daily. Previously on simvastatin 40 mg daily for dyslipidemia. Currently on pravastatin 80 mg daily GI: Hypoalbuminemia Elevated transaminases Constipation - Jevity 1.5 @ 5 45/hr per nutrition recs. -Lansoprazole 30 mg by tube daily -Docusate sodium/senna 1 tablet twice daily for bowel regimen. Add polythene glycol 17 g daily, lactulose 30 cc twice daily, mineral oil 15 cc by tube 1, glycerin suppository 1 now. Check KUB. Renal/FEN/: Acute kidney injury -Monitor renal function closely. Haley catheter for accurate intake output -Currently on scheduled furosemide 20 mg I IV daily to mobilize fluid. Monitor BMP in a.m. ID: Leukocytosis noted. Increasing pulmonary secretions. Sputum Gram stain and cultures ordered. Correction of previous note. Patient is allergic to penicillin. Day #2 levofloxacin for empiric antibiotic coverage on 10/19. HEME: Leukocytosis Admission with supratherapeutic INR On chronic warfarin for DVT on admission. Microcytic anemia Vitamin B12 deficiency -s/p 3 units FFP, 10 mg IV phytonadione given -Status post 1 unit PRBC 10/13/2017. Ordered 1 unit PRBCs on 10/18 for hemoglobin of 7.2 -Continue vitamin B12 supplementation 1000 mcg IM daily stop date 10/23. ENDO: Hypothyroidism -Continue Synthroid 100 mcg per tube daily. Sliding-scale insulin Accu-Cheks to maintain euglycemia MSK: Elevated BMI Weight loss encouraged PROPH: -Bilateral lower extremity SCDs. Chemical DVT prophylaxis contraindicated. IV famotidine LINES: -Right IJ central line placed in OR 10/13/2017 Level 2 followup.
[2017-10-20] MEDS ORDERED: Mineral Oil Liq 30 ML UDC PO ONE (13:33)
[2017-10-20] MEDS: Levofloxacin 500 mg Premix Inj 500 MG/100 ML PIGGYBACK IV.SIG SCH (13:36)
[2017-10-20] MEDS ORDERED: Dextrose 50% in Water 50 ML Vial IV.PUSH PRN (13:44)
--- NOTE | 2017-10-20 14:17 | XR ---
EXAM DATE: 10/20/2017 2:13 PM EDT AGE/SEX: 87 years / Female INDICATIONS: Concern for ileus. CLINICAL DATA: This is the patient's initial encounter. Patient reports that signs and symptoms have been present for 1 day and indicates a pain score of Nonresponsive. MEDICAL/SURGICAL HISTORY: . Hypercholesterolemia. Hypertension. Thyroid disease. Dizziness. Ant icoagulant therapy. Hyperlipidemia. Deep vein thrombosis. Arthritis. Osteoporosis. . Tonsillectomy. Appendectomy. Hysterectomy. Right eye cataract surgery. Cholecystectomy. Right knee arthroscopic. COMPARISON: No prior exams available for comparison. FINDINGS: The abdominal bowel gas pattern is normal. Copious stool in the right colon. No abnormal masses, gege cifications, or organomegaly is seen. The osseous structures are unremarkable. CONCLUSION: Unremarkable abdomen Electronically signed by: René Burns MD 10/20/2017 2:15 PM EDT
[2017-10-20] MEDS: Artificial Tears Opth Drops 15 ML Bottle EACH EYE SCH (15:24)
[2017-10-20] MEDS: Polyethylene Glycol 3350 17 GM Packet PO SCH ×2 (15:24→21:18)
[2017-10-20] MEDS: Glycerin Adult 2 GM Supp RECTAL ONE ×2 (15:45→16:43)
[2017-10-20] MEDS: Insulin NovoLOG Aspart Correctional Sugar Inj SQ SCH ×2 (16:13→21:16)
[2017-10-20] MEDS ORDERED: Insulin NovoLOG Aspart Correctional Sugar Inj SQ SCH (18:00)
[2017-10-20] MEDS ORDERED: Famotidine PF Inj 20 MG/2 ML Vial IV.PUSH SCH (21:00)
[2017-10-21] MEDS: Insulin NovoLOG Aspart Correctional Sugar Inj SQ SCH ×6 (01:38→20:28)
[2017-10-21 04:47] LABS: Baso # (Auto) 0.1 th/mm3 (0.0-0.2); Baso % (Auto) 0.5 % (0.0-2.0); Eos # (Auto) 0.1 th/mm3 (0.0-0.4); Eos % (Auto) 1.1 % (0.0-4.0); Hemoglobin 8.4 gm/dL (11.6-15.3); Lymph # (Auto) 1.3 th/mm3 (1.0-4.8); Lymph % (Auto) 10.8 % (9.0-44.0); Mean Corpuscular HGB Conc 32.1 % (32.0-36.0); Mean Corpuscular Hemoglobin 24.4 pg (27.0-34.0); Mean Corpuscular Volume 76.1 fL (80.0-100.0); Mean Platelet Volume 8.5 fL (7.0-11.0); Mono # (Auto) 1.5 th/mm3 (0.0-0.9); Mono % (Auto) 12.7 % (0.0-8.0); Neut # (Auto) 8.7 th/mm3 (1.8-7.7); Neut % (Auto) 74.9 % (16.0-70.0); Platelet Count 161 th/mm3 (150-450); Red Blood Count 3.42 mil/mm3 (4.00-5.30); Red Cell Distribution Width 22.1 % (11.6-17.2); White Blood Count 11.7 th/mm3 (4.0-11.0)
[2017-10-21 05:25] LABS: Alanine Aminotransferase 89 U/L (10-53); Albumin 1.5 g/dL (3.4-5.0); Alkaline Phosphatase 95 U/L (45-117); Anion Gap 10 meq/L (5-15); Aspartate Aminotransferase 92 U/L (15-37); Blood Urea Nitrogen 18 mg/dL (7-18); Calcium 8.1 mg/dL (8.5-10.1); Carbon Dioxide 22.1 meq/L (21.0-32.0); Chloride 109 meq/L (98-107); Glomerular Filtration Rate 56 mL/min (>89); Glucose,Random 174 mg/dL (74-106); Magnesium 1.8 mg/dL (1.5-2.5); Phosphorus 2.7 mg/dL (2.5-4.9); Potassium 4.4 meq/L (3.5-5.1); Sodium 141 meq/L (136-145)
[2017-10-21] MEDS: Chlorhexidine Gluconate 2% 1 Pack (2 Cloths) TOPICAL SCH (06:02)
[2017-10-21] MEDS: Oral Hygiene Kit OROPHARYNG SCH ×3 (06:02→18:07)
[2017-10-21] MEDS: Artificial Tears Opth Drops 15 ML Bottle EACH EYE SCH ×4 (06:02→21:04)
[2017-10-21] MEDS: Levothyroxine 100 MCG Tablet PO SCH (06:03)
[2017-10-21] MEDS: Propofol 1000 mg/100 ml Inj 1,000 MG/100 ML BOTTLE IV.CONT PRN (08:38)
[2017-10-21] MEDS: amLODIPine 10 MG Tablet NG/OG SCH (08:50)
[2017-10-21] MEDS: Polyethylene Glycol 3350 17 GM Packet PO SCH ×2 (08:50→21:03)
[2017-10-21] MEDS: Senna/Docusate Sodium 8.6/50 MG Tablet PO SCH ×2 (08:50→21:04)
[2017-10-21] MEDS: Chlorhexidine Gluconate 0.12% Liq 15 ML UDC SWISH-SPIT SCH ×2 (08:51→20:27)
[2017-10-21 09:14] LABS: Ovalocytes 1+
[2017-10-21] MEDS ORDERED: Magnesium Sulfate Inj 2 GM in Sodium Chlor 0.9% Inj 96 ML IV.SIG ONE (12:00)
[2017-10-21] MEDS ORDERED: Labetalol HCl Inj 100 MG/20 ML Vial IV.PUSH PRN (12:05)
[2017-10-21] MEDS: Levofloxacin 500 mg Premix Inj 500 MG/100 ML PIGGYBACK IV.SIG SCH (12:11)
--- NOTE | 2017-10-21 12:23 | P.PNCC ---
Subjective Subjective Remarks/Hospital Course: Patient is a 87-year-old female with past medical history significant for seizure disorder, history of DVT on Coumadin, history of recent skin cancer removed from scalp, hypothyroidism who presented to the emergency department for recurrent falls. She fell once yesterday and twice today. With last fall she did hit her head. Stat CT of the head showed 1 cm left subdural hemorrhage with moderate mass-effect left-sided subarachnoid hemorrhage and cortical contusion. Patient's INR was 4.4, patient was ordered to receive 10 mg vitamin K , and initially was ordered K Centra. Due to in availability of Kcentra 3 units of FFP was ordered. Dr. Kaba was consulted with advised reversal of anticoagulation first. Critical care was contacted for admission I evaluated the patient in the ICU. She is anxious but hemodynamically stable. There is mild facial droop and mild right-sided weakness right upper extremity. Three units of FFP, vitamin K done. I discussed with Dr. Kaba. He will re evaluate for surgical evacuation after complete reversal of anticoagulation. BUN/creatinine slightly elevated 23/1.24. Give 1 unit normal saline bolus and maintenance fluid at 50 mL/h with normal saline. Also start 2 % saline and 30 mL/h to target sodium more than 145. Her Dilantin level was 32.5 which is supratherapeutic corrected level is 37. Will hold Dilantin no other seizure prophylaxis needed at this time 10/13/17: Approximately at about 5:30 AM developed focal seizures, was bolused with a single dose of Keppra thousand milligrams IV 1. Currently on 500 mg IV twice daily. Dilantin uncorrected 27.7. CT head today shows there is a slight increase in size of the left subdural hematoma, with significant increase in posterior component. Hb 6.7 today, repeat CBC is pending. Check ABG stat as patient is more somnolent. But wakes up easily appears to be protecting airway at this time 10/14/17: s/p evacuation of left SDH, post op CT shows good evacuation with some residual blood. Pneumocephalus present. No further seizures postop. Dilantin level remains high at 27.7 7/2: Remains intubated critical. Sodium 155. Hypertonic saline. Opening eyes to voice when sedation held, and tracks. Hemodynamically remains stable. Dilantin level 23.3 today 7/3 Hypertensive when sedation was weaned so started on cardene early this morning. CT brain to be repeated today per NSG. Follows commands by wiggling left toes. 10/17 Follows command with minimal movement L toes. On CPAP 01/18 for couple of hours but does not appear she would protect airway. Dilantin downtrending, albumin corrected is 32 10/18: Orally intubated on mechanical ventilation. Awake and alert. Tolerating tube feeds. Tolerating CPAP trial 10/19: Remains orally intubated on mechanical ventilation. Transfused 1 unit PRBCs yesterday. Tolerating tube feeds. Significant respiratory secretions noted. Will initiate empiric antibiotics as patient has leukocytosis. Sputum Gram stain and cultures ordered. 10/20: Afebrile. Remains on oral tracheal intubation. She does have significant secretions with culture previously. Started on levofloxacin yesterday. Currently on CPAP trial. Subjective: 10/21: T-max 100.7. Currently 99.1. Currently on propofol drip at 5 mcg/kg/min. Currently not following commands at this upper extremities. Will reassess after sedation removed. Tolerating tube feeding at goal. Objective Vital Signs / I&O: Vital Signs 10/20/17 14:00 10/20/17 16:00 10/20/17 17:03 Temperature 100.3 F H Pulse Rate 91 H 91 H Respiratory Rate 16 15 Blood Pressure 123/58 L Pulse Oximetry 99 10/20/17 17:05 10/20/17 18:00 10/20/17 20:00 Temperature 99.2 F Pulse Rate 87 91 H 92 H Respiratory Rate 16 16 Blood Pressure 131/60 Pulse Oximetry 10/20/17 20:03 10/20/17 22:00 10/21/17 00:00 Temperature 98.9 F Pulse Rate 89 90 80 Respiratory Rate 17 15 Blood Pressure 120/56 L Pulse Oximetry 100 10/21/17 00:56 10/21/17 00:59 10/21/17 02:00 Temperature Pulse Rate 87 84 Respiratory Rate 15 15 Blood Pressure Pulse Oximetry 100 10/21/17 03:40 10/21/17 04:00 10/21/17 04:20 Temperature 98.9 F Pulse Rate 86 89 Respiratory Rate 15 15 15 Blood Pressure 124/59 L Pulse Oximetry 100 10/21/17 06:00 10/21/17 07:37 10/21/17 07:40 Temperature Pulse Rate 83 84 Respiratory Rate 15 15 Blood Pressure Pulse Oximetry 100 10/21/17 08:00 10/21/17 08:54 10/21/17 11:21 Temperature 100.7 F H 98.9 F Pulse Rate 90 90 Respiratory Rate 15 15 11 L Blood Pressure 133/63 133/63 Pulse Oximetry 100 100 100 10/21/17 11:22 Temperature Pulse Rate 90 Respiratory Rate 15 Blood Pressure Pulse Oximetry Intake & Output 10/20/17 10/21/17 10/21/17 18:59 06:59 18:59 Intake Total 1293 / 1293 1180 / 1180 755 / 755 Output Total 970 / 970 400 / 400 Balance 323 / 323 780 / 780 755 / 755 Weight 72.8 kg Intake: IV 465 / 465 545 / 545 755 / 755 Diprivan 1000 mg/100 ml Inj 1, 100 / 100 100 / 100 100 / 100 000 mg In 100 ml @ 5 MCG/KG/MIN 1.74 mls/hr IV.CONT TITRATE PRN Rx#:[id number] Cardene Inj 50 MG In NS Inj 480 160 / 160 340 / 340 300 / 300 ML @ 5 MG/HR 50 mls/hr IV.CONT TITRATE PRN Rx#:[id number] Levaquin 500 mg Premix Inj 500 100 / 100 mg In 100 ml @ 100 mls/hr IV. SIG Q24H CAREY Rx#:[id number] Keppra Inj 500 MG In NS Inj 100 105 / 105 105 / 105 105 / 105 ML @ 420 mls/hr IV.SIG Q12HR CAREY Rx#:[id number] Oral 0 / 0 0 / 0 Tube Feeding 428 / 428 515 / 515 Tube Irrigant 140 / 140 Water Bolus Amount 260 / 260 120 / 120 Output: Stool 0 / 0 0 / 0 Urine Amount (Catheter) 950 / 950 400 / 400 Indwelling Urethral Catheter 950 / 950 400 / 400 Gastric Drainage 0 / 0 0 / 0 Orogastric Tube 0 / 0 0 / 0 Wound Drainage 20 / 20 Posterior Head TATA Drain 20 / 20 Other: Date of Last Bowel Movement 10/20/17 10/21/17 10/21/17 # Bowel Movements 1 1 Result Diagrams: 10/21/17 04:30 10/21/17 04:30 Other Results: Microbiology 10/19/17 09:00 Sputum - Endotracheal Gram Stain - Final 10/19/17 09:00 Sputum - Endotracheal Sputum Culture - Preliminary gram negative rods Imaging: ITS Impressions Head CT 10/14/17 00:00 CONCLUSION: 1. Interval left craniotomy with partial evacuation of left subdural hematoma and placement of a left subdural drain. Pneumocephalus present. Stable right subdural hygroma. No new intracranial hemorrhage. Head CT 10/16/17 00:00 CONCLUSION: 1. The only interval change has been the development of small volume intraventricular hemorrhage bilaterally without hydrocephalus. 2. Stable left-sided subdural hematoma. Venous Doppler Study 10/16/17 00:00 CONCLUSION: 1. The study is negative for bilateral lower extremity deep venous thrombosis. Chest X-Ray 10/16/17 06:00 CONCLUSION: Left lower lung consolidation. Chest X-Ray 10/19/17 00:00 CONCLUSION: No significant change. Persistent left basilar airspace disease. Head CT 10/19/17 00:00 CONCLUSION: 1. 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 There is approximately 6 mm of leftward midline shift. No new bleed. 2. Increased bifrontal subdural pneumocephaly. Abdomen X-Ray 10/20/17 00:00 CONCLUSION: Unremarkable abdomen Objective Remarks: GENERAL: 87-year-old female currently orotracheally intubated. SKIN: Warm/dry. With rashes HEAD: Small abrasion tip of nose. S/p L craniotomy with nataliya, c/d/i. TATA in place. EYES: Pupils equal and round, reactive. Around 2 mm bilaterally ENT: No nasal bleeding or discharge. Mucous membranes pink and moist. Orotracheally intubated NECK: Trachea midline. No JVD. CARDIOVASCULAR: Regular rate and rhythm. S1, S2 predose 4. Grade 2 systolic murmur heard in sternal RESPIRATORY: Coarse rhonchorous breath sounds are appreciated anteriorly. No wheezing.. GASTROINTESTINAL: Abdomen soft, non-tender, nondistended. MUSCULOSKELETAL: No obvious deformities. No clubbing. 1-2+ pitting edema BUE 1 + BLE. NEUROLOGICAL: Intubated. Pupils reactive as above equal. Opens eyes, makes eye contact and tracks. Spontaneously movement of left upper extremity. Follows simple commands with left upper lower extremity. Withdraws to noxious stimuli right lower greater than right upper extremity.. Assessment and Plan - Assessment and Plan Plan: NEURO/PSYCH: Status post fall with left subdural, subarachnoid hemorrhage and cortical contusion, moderate mass-effect Status post left frontal craniotomy with evacuation of subdural hematoma Dilantin toxicity Recurrent seizures Seizure disorder History of right eye cataract/IOC -CT of the head 10/12: 1 cm left subdural hemorrhage with moderate mass-effect left-sided SAH and cortical contusion. Repeat CT 10/13 increasing subdural hemorrhage. Repeat CT brain 10/16 - small IVH without hydrocephalus -CT brain 10/19 - chronic right and subacute left subdural hematomas are again noted and not significantly changed. There is approximately 6 mm of leftward midline shift. No new bleed. Increased bifrontal subdural pneumocephaly -Status post craniotomy and evacuation of left subdural hemorrhage 10/13/2017. Postop CT showed improved subdural hemorrhage with some pneumocephalus. Followed by neurology/Dr. Tatum -Continue levetiracetam 500 mg IV every 12. -EEG 10/15 slightly higher theta amplitude on the left. No epileptiform activity. -Recurrent fall was most likely secondary to Dilantin toxicity which she is currently off. -B12 supplementation as per below. RESP: Acute respiratory failure -PRVC/AC ventilation. -Albuterol/ipratropium aerosols every 4 hours with albuterol aerosols every 2 hours as needed for dyspnea -SBT daily but mental status precludes extubation at this time. -Albuterol/ipratropium every 4 hours with albuterol aerosols every 2 hours as needed for dyspnea CV: Hyperlipidemia Essential hypertension -Wean off nicardipine drip. -IV labetalol 10 mg every 2 hours as needed for SBP more than 150 Currently on amlodipine 10 mg daily. Previously on simvastatin 40 mg daily for dyslipidemia. Currently on pravastatin 80 mg daily GI: Hypoalbuminemia Elevated transaminases Constipation - Jevity 1.5 @ 5 45/hr per nutrition recs. -Lansoprazole 30 mg by tube daily -Docusate sodium/senna 1 tablet twice daily for bowel regimen. Add polythene glycol 17 g daily, lactulose 30 cc twice daily, mineral oil 15 cc by tube 1, glycerin suppository 1 now. Check KUB. Renal/FEN/: Acute kidney injury -Monitor renal function closely. Ahley catheter for accurate intake output -Currently on scheduled furosemide 20 mg IV daily to mobilize fluid. Monitor BMP in a.m. ID: Leukocytosis noted. Increasing pulmonary secretions. Sputum Gram stain and cultures ordered. Correction of previous note. Patient is allergic to penicillin. Day #2 levofloxacin for empiric antibiotic coverage on 10/19. HEME: Leukocytosis Admission with supratherapeutic INR On chronic warfarin for DVT on admission. Microcytic anemia Vitamin B12 deficiency -s/p 3 units FFP, 10 mg IV phytonadione given -Status post 1 unit PRBC 10/13/2017. Ordered 1 unit PRBCs on 10/18 for hemoglobin of 7.2 -Continue vitamin B12 supplementation 1000 mcg IM daily stop date 10/23. ENDO: Hypothyroidism -Continue levothyroxine 100 mcg per tube daily. Sliding-scale insulin Accu-Cheks to maintain euglycemia MSK: Elevated BMI Weight loss encouraged PROPH: -Bilateral lower extremity SCDs. Chemical DVT prophylaxis contraindicated. IV famotidine LINES: -Right IJ central line placed in OR 10/13/2017. Will attempt treatment today 10/[address] Level 2 followup.
[2017-10-22] MEDS: Chlorhexidine Gluconate 2% 1 Pack (2 Cloths) TOPICAL SCH (04:00)
[2017-10-22] MEDS: Oral Hygiene Kit OROPHARYNG SCH ×4 (04:00→16:36)
[2017-10-22] MEDS: Insulin NovoLOG Aspart Correctional Sugar Inj SQ SCH ×6 (04:30→20:45)
--- NOTE | 2017-10-22 04:58 | XR ---
EXAM DATE: 10/22/2017 4:29 AM EDT AGE/SEX: 87 years / Female INDICATIONS: Respiratory failure. CLINICAL DATA: This is the patient's subsequent encounter. Patient reports that signs and symptoms h ave been present for 4 - 6 days and indicates a pain score of Nonresponsive. MEDICAL/SURGICAL HISTORY: . Hypercholesterolemia. Hypertension. Thyroid disease. Dizziness. Ant icoagulant therapy. Hyperlipidemia. Deep vein thrombosis. Arthritis. Osteoporosis. . Tonsillectomy. A ppendectomy. Hysterectomy. . Right eye cataract surgery. Cholecystectomy. Right knee arthroscopic. COMPARISON: C, CHEST 1V SINGLE AP, 10/19/2017. . FINDINGS: Stable ETT, right IJ central line and NGT. Developing interstitial prominence with hazy bilateral opa cities and bilateral lower lung zone airspace disease. Cardiomediastinal contours are stable. Remaind er of the exam is unchanged. CONCLUSION: 1. Stable lines and tubes. 2. Mild positive fluid balance with developing small bilateral pleural effusions and associated airs pace disease in the lower lung zones. Electronically signed by: Ramon Guerrero MD 10/22/2017 4:56 AM EDT
[2017-10-22 05:14] LABS: Baso % (Auto) 0.3 % (0.0-2.0); Eos # (Auto) 0.2 th/mm3 (0.0-0.4); Eos % (Auto) 1.3 % (0.0-4.0); Hematocrit 26.8 % (35.0-46.0); Hemoglobin 8.5 gm/dL (11.6-15.3); Lymph # (Auto) 1.2 th/mm3 (1.0-4.8); Lymph % (Auto) 8.7 % (9.0-44.0); Mean Corpuscular HGB Conc 31.7 % (32.0-36.0); Mean Corpuscular Hemoglobin 24.4 pg (27.0-34.0); Mean Platelet Volume 8.7 fL (7.0-11.0); Mono # (Auto) 1.5 th/mm3 (0.0-0.9); Mono % (Auto) 11.3 % (0.0-8.0); Neut # (Auto) 10.4 th/mm3 (1.8-7.7); Neut % (Auto) 78.4 % (16.0-70.0); Platelet Count 192 th/mm3 (150-450); Red Blood Count 3.47 mil/mm3 (4.00-5.30); Red Cell Distribution Width 23.2 % (11.6-17.2); White Blood Count 13.3 th/mm3 (4.0-11.0)
[2017-10-22 05:51] LABS: Alanine Aminotransferase 100 U/L (10-53); Albumin 1.6 g/dL (3.4-5.0); Alkaline Phosphatase 101 U/L (45-117); Anion Gap 10 meq/L (5-15); Aspartate Aminotransferase 91 U/L (15-37); Blood Urea Nitrogen 19 mg/dL (7-18); Carbon Dioxide 23.5 meq/L (21.0-32.0); Chloride 108 meq/L (98-107); Glomerular Filtration Rate 58 mL/min (>89); Glucose,Random 173 mg/dL (74-106); Magnesium 2.6 mg/dL (1.5-2.5); Phosphorus 3.6 mg/dL (2.5-4.9); Potassium 4.6 meq/L (3.5-5.1); Sodium 141 meq/L (136-145); Total Protein 5.4 g/dL (6.4-8.2)
[2017-10-22] MEDS: Levothyroxine 100 MCG Tablet PO SCH (06:00)
[2017-10-22] MEDS: Artificial Tears Opth Drops 15 ML Bottle EACH EYE SCH ×3 (06:00→21:07)
[2017-10-22] MEDS: Senna/Docusate Sodium 8.6/50 MG Tablet PO SCH ×2 (09:23→21:00)
[2017-10-22] MEDS: amLODIPine 10 MG Tablet NG/OG SCH (09:23)
[2017-10-22] MEDS: Chlorhexidine Gluconate 0.12% Liq 15 ML UDC SWISH-SPIT SCH ×2 (09:24→20:00)
[2017-10-22] MEDS: Polyethylene Glycol 3350 17 GM Packet PO SCH ×2 (09:24→21:00)
--- NOTE | 2017-10-22 10:52 | P.PNCC ---
Subjective Subjective Remarks/Hospital Course: Patient is a 87-year-old female with past medical history significant for seizure disorder, history of DVT on Coumadin, history of recent skin cancer removed from scalp, hypothyroidism who presented to the emergency department for recurrent falls. She fell once yesterday and twice today. With last fall she did hit her head. Stat CT of the head showed 1 cm left subdural hemorrhage with moderate mass-effect left-sided subarachnoid hemorrhage and cortical contusion. Patient's INR was 4.4, patient was ordered to receive 10 mg vitamin K , and initially was ordered K [facility]ra. Due to in availability of Kcentra 3 units of FFP was ordered. Dr. Kaba was consulted with advised reversal of anticoagulation first. Critical care was contacted for admission I evaluated the patient in the ICU. She is anxious but hemodynamically stable. There is mild facial droop and mild right-sided weakness right upper extremity. Three units of FFP, vitamin K done. I discussed with Dr. Kaba. He will re evaluate for surgical evacuation after complete reversal of anticoagulation. BUN/creatinine slightly elevated 23/1.24. Give 1 unit normal saline bolus and maintenance fluid at 50 mL/h with normal saline. Also start 2 % saline and 30 mL/h to target sodium more than 145. Her Dilantin level was 32.5 which is supratherapeutic corrected level is 37. Will hold Dilantin no other seizure prophylaxis needed at this time 10/13/17: Approximately at about 5:30 AM developed focal seizures, was bolused with a single dose of Keppra thousand milligrams IV 1. Currently on 500 mg IV twice daily. Dilantin uncorrected 27.7. CT head today shows there is a slight increase in size of the left subdural hematoma, with significant increase in posterior component. Hb 6.7 today, repeat CBC is pending. Check ABG stat as patient is more somnolent. But wakes up easily appears to be protecting airway at this time 10/14/17: s/p evacuation of left SDH, post op CT shows good evacuation with some residual blood. Pneumocephalus present. No further seizures postop. Dilantin level remains high at 27.7 7: Remains intubated critical. Sodium 155. Hypertonic saline. Opening eyes to voice when sedation held, and tracks. Hemodynamically remains stable. Dilantin level 23.3 today Subjective: 10/16 Hypertensive when sedation was weaned so started on cardene early this morning. CT brain to be repeated today per NSG. Follows commands by wiggling left toes. 10/17 Follows command with minimal movement L toes. On CPAP 01/18 for couple of hours but does not appear she would protect airway. Dilantin downtrending, albumin corrected is 32 10/18: Orally intubated on mechanical ventilation. Awake and alert. Tolerating tube feeds. Tolerating CPAP trial 10/19: Remains orally intubated on mechanical ventilation. Transfused 1 unit PRBCs yesterday. Tolerating tube feeds. Significant respiratory secretions noted. Will initiate empiric antibiotics as patient has leukocytosis. Sputum Gram stain and cultures ordered. 10/20: Afebrile. Remains on oral tracheal intubation. She does have significant secretions with culture previously. Started on levofloxacin yesterday. Currently on CPAP trial. Subjective: 10/21: T-max 100.7. Currently 99.1. Currently on propofol drip at 5 mcg/kg/min. Currently not following commands at this upper extremities. Will reassess after sedation removed. Tolerating tube feeding at goal. 10/22: Strong on CPAP/SBT but it is doubtful she will protect her airway. We will continue to hold sedation and see if she does not become more alert. Objective Vital Signs / I&O: Vital Signs 10/21/17 11:21 10/21/17 11:22 10/21/17 12:00 Temperature 98.9 F Pulse Rate 90 94 H Respiratory Rate 11 L 15 22 Blood Pressure 140/64 Pulse Oximetry 100 99 10/21/17 15:54 10/21/17 15:56 10/21/17 16:00 Temperature 98.8 F Pulse Rate 90 95 H Respiratory Rate 20 20 21 Blood Pressure 144/67 H Pulse Oximetry 99 98 10/21/17 19:43 10/21/17 19:45 10/21/17 20:00 Temperature 98.3 F Pulse Rate 101 H 90 Respiratory Rate 22 26 H 22 Blood Pressure 140/64 Pulse Oximetry 97 98 10/21/17 22:00 10/21/17 23:49 10/22/17 00:00 Temperature 100 F H Pulse Rate 94 H 86 91 H Respiratory Rate 15 18 Blood Pressure 139/63 Pulse Oximetry 100 10/22/17 00:07 10/22/17 02:00 10/22/17 03:42 Temperature Pulse Rate 87 Respiratory Rate 16 15 Blood Pressure Pulse Oximetry 98 99 10/22/17 03:43 10/22/17 04:00 10/22/17 06:00 Temperature 100.2 F H Pulse Rate 82 92 H 90 Respiratory Rate 15 19 Blood Pressure 145/65 H Pulse Oximetry 98 10/22/17 08:18 10/22/17 09:42 Temperature Pulse Rate 94 H Respiratory Rate 22 25 H Blood Pressure Pulse Oximetry 97 98 Intake & Output 10/21/17 10/22/17 10/22/17 18:59 06:59 18:59 Intake Total 2007 605 / 605 Output Total 1200 / 1200 451 / 451 Balance 808 / 808 154 / 154 Weight 72.8 kg Intake: IV 985 / 985 Diprivan 1000 mg/100 ml Inj 1, 130 / 130 000 mg In 100 ml @ 5 MCG/KG/MIN 1.74 mls/hr IV.CONT TITRATE PRN Rx#:[id number] Cardene Inj 50 MG In NS Inj 480 300 / 300 ML @ 5 MG/HR 50 mls/hr IV.CONT TITRATE PRN Rx#:[id number] Levaquin 500 mg Premix Inj 500 100 / 100 mg In 100 ml @ 100 mls/hr IV. SIG Q24H CAREY Rx#:[id number] Magnesium Sulfate Inj 2 GM In 100 / 100 NS Inj 96 ML @ 50 mls/hr IV.SIG ONCE ONE Rx#:[id number] Keppra Inj 500 MG In NS Inj 100 105 / 105 ML @ 420 mls/hr IV.SIG Q12HR CAREY Rx#:[id number] Oral 0 / 0 Tube Feeding 523 / 523 485 / 485 Tube Irrigant 120 / 120 Water Bolus Amount 500 / 500 Output: Urine 450 / 450 Stool 1 / 1 Urine Amount (Catheter) 1200 / 1200 Indwelling Urethral Catheter 1200 / 1200 Gastric Drainage 0 / 0 Orogastric Tube 0 / 0 Wound Drainage 0 / 0 Posterior Head TATA Drain 0 / 0 Other: Date of Last Bowel Movement 10/21/17 10/22/17 # Bowel Movements 2 1 Result Diagrams: 10/22/17 04:40 10/22/17 04:40 Objective Remarks: GENERAL: Elderly female, orotracheally intubated. SKIN: Warm/dry. HEAD: Small abrasion tip of nose. S/p L craniotomy with nataliya, c/d/i. EYES: Pupils equal and round, reactive, 2 mm. ENT: No nasal bleeding or discharge. Mucous membranes pink and moist. Orotracheally intubated NECK: Trachea midline. CARDIOVASCULAR: Regular rate and rhythm. Grade 2 systolic murmur heard in all areas. No JVD. RESPIRATORY: PRVC/AC. No accessory muscle use. Clear to auscultation. Breath sounds equal bilaterally. GASTROINTESTINAL: Abdomen soft, non-tender, nondistended. No guarding, bowel sounds present. MUSCULOSKELETAL: No obvious deformities. No clubbing. 1+ pitting edema all extremities. Warm, well-perfused. NEUROLOGICAL: Intubated. Pupils reactive as above equal. Opens eyes, makes eye contact and tracks. Moves left arm spontaneously and to stimulation. She is able to wiggle her left toes. Assessment and Plan - Problem List (1) Dilantin toxicity Code(s): T42.0X1A - Poisoning by hydantoin derivatives, accidental ( unintentional), initial encounter Status: Acute (2) Subdural hematoma, acute Code(s): S06.5X9A - Traumatic subdural hemorrhage with loss of consciousness of unspecified duration, initial encounter Status: Acute (3) Seizure disorder Code(s): G40.909 - Epilepsy, unspecified, not intractable, without status epilepticus Status: Chronic (4) Respiratory failure, acute Code(s): J96.00 - Acute respiratory failure, unspecified whether with hypoxia or hypercapnia Status: Acute (5) HTN (hypertension) Code(s): I10 - Essential (primary) hypertension Status: Chronic (6) Hypothyroid Code(s): E03.9 - Hypothyroidism, unspecified Status: Chronic (7) B12 deficiency Code(s): E53.8 - Deficiency of other specified B group vitamins Status: Chronic - Assessment and Plan Plan: A/P Assessment and Plan NEURO: Status post fall with left subdural, subarachnoid hemorrhage and cortical contusion, moderate mass-effect Dilantin toxicity Recurrent seizures Seizure disorder -CT of the head 10/12: 1 cm left subdural hemorrhage with moderate mass-effect left-sided SAH and cortical contusion. Repeat CT 10/13 increasing subdural hemorrhage -Status post craniotomy and evacuation of left subdural hemorrhage 10/13/2017. Postop CT showed improved subdural hemorrhage with some pneumocephalus. -Repeat CT brain today per neurosurgery. -No further seizures postop. Dilantin level remains high at 23.3 on 10/15. -Continue Keppra 500 mg IV every 12. -EEG 10/15 slightly higher amplitude on the left. No seizure activity. -Replace calcium, keep magnesium above 2 -Off versed. Wean fentanyl infusions. NSG also agreeable to sedation vacation. -Recurrent fall was most likely secondary to Dilantin toxicity. -dc 2% saline, keep sodium 150-155 -Avoid hyponatremia hypomagnesemia hypoxia -B12 supplementation as per below. RESP: Acute respiratory failure -PRVC/AC -SBT today. -DuoNeb every 6 hours as needed CV: Hypertension -KVO MIVF. -Stopped 2% Saline -IV labetalol 10 mg every 2 hours as needed for SBP more than 150 -Weaned off cardene drip. GI: -On tube feeds with Jevity 1.5 @ 45ml/hr per nutrition recs. -IV famotidine : Acute kidney injury -Monitor renal function closely. ID: -Levaquin for Enterobacter pneumonia, multiple allergies. HEME: Supratherapeutic INR On chronic Coumadin for DVT on admission. Anemia Vitamin B12 deficiency -s/p 3 units FFP, 10 mg IV vitamin K given -Status post 1 unit PRBC 10/13/2017 -Continue vitamin B12 supplementation 1000 mcg IM daily. ENDO: Hypothyroidism Hypocalcemia -Continue Synthroid 100 mcg per tube daily. -Electrolyte replacement per protocol PROPH: -Bilateral lower extremity SCDs. Chemical DVT prophylaxis contraindicated. IV famotidine LINES: -Right IJ central line placed in OR 10/13/2017 #9, removed.. Art line placed in OR has been removed. Overall impression: She is strong during spontaneous breathing trials but it is doubtful that she will be able to protect her airway following extubation. We will leave intubated another day.
[2017-10-22] MEDS: Levofloxacin 500 mg Premix Inj 500 MG/100 ML PIGGYBACK IV.SIG SCH (12:51)
--- NOTE | 2017-10-22 18:57 | P.PNNS ---
Subjective Interval history: Patient remains on ventilator-CPAP trials No seizure activity reported over the weekend Physical Exam Vital signs: Vital Signs 10/21/17 19:43 10/21/17 19:45 10/21/17 20:00 Temperature 98.3 F Pulse Rate 101 H 90 Respiratory Rate 22 26 H 22 Blood Pressure 140/64 Pulse Oximetry 97 98 10/21/17 22:00 10/21/17 23:49 10/22/17 00:00 Temperature 100 F H Pulse Rate 94 H 86 91 H Respiratory Rate 15 18 Blood Pressure 139/63 Pulse Oximetry 100 10/22/17 00:07 10/22/17 02:00 10/22/17 03:42 Temperature Pulse Rate 87 Respiratory Rate 16 15 Blood Pressure Pulse Oximetry 98 99 10/22/17 03:43 10/22/17 04:00 10/22/17 06:00 Temperature 100.2 F H Pulse Rate 82 92 H 90 Respiratory Rate 15 19 Blood Pressure 145/65 H Pulse Oximetry 98 10/22/17 08:00 10/22/17 08:18 10/22/17 09:42 Temperature 99.6 F Pulse Rate 94 H 94 H Respiratory Rate 22 22 25 H Blood Pressure 151/68 H Pulse Oximetry 97 97 98 10/22/17 10:00 10/22/17 11:28 10/22/17 12:00 Temperature 98.9 F Pulse Rate 92 H 89 90 Respiratory Rate 21 23 Blood Pressure 143/63 H Pulse Oximetry 98 98 10/22/17 14:00 10/22/17 16:00 10/22/17 16:37 Temperature 99.1 F Pulse Rate 90 86 85 Respiratory Rate 24 20 Blood Pressure 139/61 Pulse Oximetry 99 100 10/22/17 18:00 Temperature Pulse Rate 90 Respiratory Rate Blood Pressure Pulse Oximetry Intake & Output 10/21/17 10/22/17 10/22/17 18:59 06:59 18:59 Intake Total 2007 605 / 605 711 / 711 Output Total 1200 / 1200 451 / 451 1775 / 1775 Balance 808 / 808 154 / 154 -1064 / -1064 Weight 72.8 kg Intake: IV 985 / 985 100 / 100 Diprivan 1000 mg/100 ml Inj 1, 130 / 130 000 mg In 100 ml @ 5 MCG/KG/MIN 1.74 mls/hr IV.CONT TITRATE PRN Rx#:[id number] Cardene Inj 50 MG In NS Inj 480 300 / 300 ML @ 5 MG/HR 50 mls/hr IV.CONT TITRATE PRN Rx#:[id number] Levaquin 500 mg Premix Inj 500 100 / 100 100 / 100 mg In 100 ml @ 100 mls/hr IV. SIG Q24H [facility] Rx#:[id number] Magnesium Sulfate Inj 2 GM In 100 / 100 NS Inj 96 ML @ 50 mls/hr IV.SIG ONCE ONE Rx#:[id number] Keppra Inj 500 MG In NS Inj 100 105 / 105 ML @ 420 mls/hr IV.SIG Q12HR [facility] Rx#:[id number] Oral 0 / 0 Tube Feeding 523 / 523 485 / 485 491 / 491 Tube Irrigant 120 / 120 Water Bolus Amount 500 / 500 Other 120 / 120 Output: Urine 450 / 450 Stool 1 / 1 Urine Amount (Catheter) 1200 / 1200 1775 / 1775 Indwelling Urethral Catheter 1200 / 1200 1775 / 1775 Gastric Drainage 0 / 0 Orogastric Tube 0 / 0 Wound Drainage 0 / 0 Posterior Head TATA Drain 0 / 0 Other: Date of Last Bowel Movement 10/21/17 10/22/17 10/22/17 # Bowel Movements 2 1 1 Narrative: Respirations clear Abdomen soft Cardiac: Regular Head: Incision dry and intact. Awake and alert Tracks focuses with conjugate gaze with eyes Pupils 3 mm reactive to 2 mm Infrequently follows commands to move extremities Moderate left grasp and lower extremity spontaneous movement. - Urinary Catheter Management Indwelling Urethral Catheter Cath placed during this visit: yes Reason for continuing: Hourly intake/output Insertion date: 10/12/17 Insertion time: 08:13 Assessment and Plan - Assessment (1) Subdural hematoma, acute Code(s): S06.5X9A - Traumatic subdural hemorrhage with loss of consciousness of unspecified duration, initial encounter Status: Acute - Plan Impression: 1. Stable neurologic exam and postoperative CT scan following evacuation acute left hemisphere subdural hematoma 10/14/2017. Remains awake and alert on 10/22/[address] brain demonstrated chronic right & subacute left SDH w/o significant change & 6 mm leftward midline shift; no new haemorrhage; increased bifrontal subdural pneumocephaly. Plan: 1. Continue to wean ventilatory support. 2. Okay to wean sedation. 4. Continue Keppra. Dilantin held secondary to toxicity on initial presentation 5. Electrolyte replacement 6. Monitor hemoglobin 6
[2017-10-23] MEDS: Insulin NovoLOG Aspart Correctional Sugar Inj SQ SCH ×5 (01:00→15:32)
[2017-10-23] MEDS: Chlorhexidine Gluconate 2% 1 Pack (2 Cloths) TOPICAL SCH (04:00)
[2017-10-23] MEDS: Oral Hygiene Kit OROPHARYNG SCH ×4 (04:00→15:11)
[2017-10-23] MEDS: Artificial Tears Opth Drops 15 ML Bottle EACH EYE SCH ×2 (06:00→13:58)
[2017-10-23] MEDS: Levothyroxine 100 MCG Tablet PO SCH (06:38)
[2017-10-23] MEDS: Albumin Human 25% Inj 50 ML IV.SIG SCH ×2 (06:47→17:08)
[2017-10-23] MEDS: amLODIPine 10 MG Tablet NG/OG SCH (08:32)
[2017-10-23] MEDS: Chlorhexidine Gluconate 0.12% Liq 15 ML UDC SWISH-SPIT SCH (08:32)
[2017-10-23] MEDS: Polyethylene Glycol 3350 17 GM Packet PO SCH (08:33)
[2017-10-23] MEDS: Senna/Docusate Sodium 8.6/50 MG Tablet PO SCH (08:33)
--- NOTE | 2017-10-23 10:14 | P.PNCC ---
Subjective Subjective Remarks/Hospital Course: Patient is a 87-year-old female with past medical history significant for seizure disorder, history of DVT on Coumadin, history of recent skin cancer removed from scalp, hypothyroidism who presented to the emergency department for recurrent falls. She fell once yesterday and twice today. With last fall she did hit her head. Stat CT of the head showed 1 cm left subdural hemorrhage with moderate mass-effect left-sided subarachnoid hemorrhage and cortical contusion. Patient's INR was 4.4, patient was ordered to receive 10 mg vitamin K , and initially was ordered K Centra. Due to in availability of Kcentra 3 units of FFP was ordered. Dr. Kaba was consulted with advised reversal of anticoagulation first. Critical care was contacted for admission I evaluated the patient in the ICU. She is anxious but hemodynamically stable. There is mild facial droop and mild right-sided weakness right upper extremity. Three units of FFP, vitamin K done. I discussed with Dr. Kaba. He will re evaluate for surgical evacuation after complete reversal of anticoagulation. BUN/creatinine slightly elevated 23/1.24. Give 1 unit normal saline bolus and maintenance fluid at 50 mL/h with normal saline. Also start 2 % saline and 30 mL/h to target sodium more than 145. Her Dilantin level was 32.5 which is supratherapeutic corrected level is 37. Will hold Dilantin no other seizure prophylaxis needed at this time 10/13/17: Approximately at about 5:30 AM developed focal seizures, was bolused with a single dose of Keppra thousand milligrams IV 1. Currently on 500 mg IV twice daily. Dilantin uncorrected 27.7. CT head today shows there is a slight increase in size of the left subdural hematoma, with significant increase in posterior component. Hb 6.7 today, repeat CBC is pending. Check ABG stat as patient is more somnolent. But wakes up easily appears to be protecting airway at this time 10/14/17: s/p evacuation of left SDH, post op CT shows good evacuation with some residual blood. Pneumocephalus present. No further seizures postop. Dilantin level remains high at 27.7 7: Remains intubated critical. Sodium 155. Hypertonic saline. Opening eyes to voice when sedation held, and tracks. Hemodynamically remains stable. Dilantin level 23.3 today Subjective: 10/16 Hypertensive when sedation was weaned so started on cardene early this morning. CT brain to be repeated today per NSG. Follows commands by wiggling left toes. 10/17 Follows command with minimal movement L toes. On CPAP 01/18 for couple of hours but does not appear she would protect airway. Dilantin downtrending, albumin corrected is 32 10/18: Orally intubated on mechanical ventilation. Awake and alert. Tolerating tube feeds. Tolerating CPAP trial 10/19: Remains orally intubated on mechanical ventilation. Transfused 1 unit PRBCs yesterday. Tolerating tube feeds. Significant respiratory secretions noted. Will initiate empiric antibiotics as patient has leukocytosis. Sputum Gram stain and cultures ordered. 10/20: Afebrile. Remains on oral tracheal intubation. She does have significant secretions with culture previously. Started on levofloxacin yesterday. Currently on CPAP trial. Subjective: 10/21: T-max 100.7. Currently 99.1. Currently on propofol drip at 5 mcg/kg/min. Currently not following commands at this upper extremities. Will reassess after sedation removed. Tolerating tube feeding at goal. 10/22: Strong on CPAP/SBT but it is doubtful she will protect her airway. We will continue to hold sedation and see if she does not become more alert. 10/23: Much stronger on spontaneous breathing trial today. Will probably meet criteria for extubation. Objective Vital Signs / I&O: Vital Signs 10/22/17 11:28 10/22/17 12:00 10/22/17 14:00 Temperature 98.9 F Pulse Rate 89 90 90 Respiratory Rate 21 23 Blood Pressure 143/63 H Pulse Oximetry 98 98 10/22/17 16:00 10/22/17 16:37 10/22/17 18:00 Temperature 99.1 F Pulse Rate 86 85 90 Respiratory Rate 24 20 Blood Pressure 139/61 Pulse Oximetry 99 100 10/22/17 20:00 10/22/17 20:18 10/22/17 22:00 Temperature 99 F Pulse Rate 84 89 84 Respiratory Rate 14 14 Blood Pressure 144/66 H Pulse Oximetry 100 100 10/23/17 00:00 10/23/17 00:11 10/23/17 00:44 Temperature 98.8 F Pulse Rate 107 H 101 H Respiratory Rate 15 17 15 Blood Pressure 126/60 Pulse Oximetry 98 99 10/23/17 02:00 10/23/17 04:00 10/23/17 04:12 Temperature 98.7 F Pulse Rate 96 H 88 Respiratory Rate 15 14 Blood Pressure 120/56 L Pulse Oximetry 99 97 10/23/17 04:13 10/23/17 06:00 10/23/17 08:32 Temperature Pulse Rate 92 H 97 H Respiratory Rate 16 19 Blood Pressure Pulse Oximetry 98 10/23/17 08:36 Temperature Pulse Rate 81 Respiratory Rate 21 Blood Pressure Pulse Oximetry Intake & Output 10/22/17 10/23/17 10/23/17 18:59 06:59 18:59 Intake Total 711 / 711 785 / 785 Output Total 1775 / 1775 452 / 452 Balance -1064 / -1064 333 / 333 Weight 76.3 kg Intake: IV 100 / 100 Levaquin 500 mg Premix Inj 500 100 / 100 mg In 100 ml @ 100 mls/hr IV. SIG Q24H [facility] Rx#:[id number] Oral 0 / 0 Tube Feeding 491 / 491 405 / 405 Tube Irrigant 120 / 120 Water Bolus Amount 140 / 140 Other 120 / 120 120 / 120 Output: Urine 450 / 450 Stool 2 / 2 Urine Amount (Catheter) 1774 / 1774 Indwelling Urethral Catheter 1774 Gastric Drainage 0 / 0 Orogastric Tube 0 / 0 Wound Drainage 0 / 0 Posterior Head TATA Drain 0 / 0 Other: Other Intake Source Saline Solution Date of Last Bowel Movement 10/22/17 10/23/17 # Bowel Movements 1 2 Result Diagrams: 10/22/17 04:40 10/22/17 04:40 Objective Remarks: GENERAL: Elderly female, orotracheally intubated. SKIN: Warm/dry. HEAD: Small abrasion tip of nose. S/p L craniotomy with nataliya, c/d/i. EYES: Pupils equal and round, reactive, 2 mm. ENT: No nasal bleeding or discharge. Mucous membranes pink and moist.. NECK: Trachea midline. Orally intubated. CARDIOVASCULAR: Regular rate and rhythm. Grade 2 systolic murmur heard in all areas. No JVD. RESPIRATORY: PRVC/AC. No accessory muscle use. Clear to auscultation. Breath sounds equal bilaterally. GASTROINTESTINAL: Abdomen soft, non-tender, nondistended. No guarding, bowel sounds present. MUSCULOSKELETAL: No obvious deformities. No clubbing. 1+ pitting edema all extremities. Warm, well-perfused. NEUROLOGICAL: Intubated. Pupils reactive as above equal. Opens eyes, makes eye contact and tracks. Moves left arm spontaneously and to stimulation. She is able to wiggle her left toes. Much more interactive today. Assessment and Plan - Problem List (1) Dilantin toxicity Code(s): T42.0X1A - Poisoning by hydantoin derivatives, accidental ( unintentional), initial encounter Status: Acute (2) Subdural hematoma, acute Code(s): S06.5X9A - Traumatic subdural hemorrhage with loss of consciousness of unspecified duration, initial encounter Status: Acute (3) Seizure disorder Code(s): G40.909 - Epilepsy, unspecified, not intractable, without status epilepticus Status: Chronic (4) Respiratory failure, acute Code(s): J96.00 - Acute respiratory failure, unspecified whether with hypoxia or hypercapnia Status: Acute (5) HTN (hypertension) Code(s): I10 - Essential (primary) hypertension Status: Chronic (6) Hypothyroid Code(s): E03.9 - Hypothyroidism, unspecified Status: Chronic (7) B12 deficiency Code(s): E53.8 - Deficiency of other specified B group vitamins Status: Chronic - Assessment and Plan Plan: A/P Assessment and Plan NEURO: Status post fall with left subdural, subarachnoid hemorrhage and cortical contusion, moderate mass-effect Dilantin toxicity Recurrent seizures Seizure disorder -CT of the head 10/12: 1 cm left subdural hemorrhage with moderate mass-effect left-sided SAH and cortical contusion. Repeat CT 10/13 increasing subdural hemorrhage -Status post craniotomy and evacuation of left subdural hemorrhage 10/13/2017. Postop CT showed improved subdural hemorrhage with some pneumocephalus. -Repeat CT brain today per neurosurgery. -No further seizures postop. Dilantin level remains high at 23.3 on 10/15. -Continue Keppra 500 mg IV every 12. -EEG 10/15 slightly higher amplitude on the left. No seizure activity. -Replace calcium, keep magnesium above 2 -Off versed. Wean fentanyl infusions. NSG also agreeable to sedation vacation. -Recurrent fall was most likely secondary to Dilantin toxicity. -dc 2% saline, keep sodium 150-155 -Avoid hyponatremia hypomagnesemia hypoxia -B12 supplementation as per below. RESP: Acute respiratory failure -PRVC/AC -SBT today. -DuoNeb every 6 hours as needed CV: Hypertension -KVO MIVF. -Stopped 2% Saline -IV labetalol 10 mg every 2 hours as needed for SBP more than 150 -Weaned off cardene drip. GI: -On tube feeds with Jevity 1.5 @ 45ml/hr per nutrition recs. -IV famotidine : Acute kidney injury -Monitor renal function closely. ID: -Levaquin for Enterobacter pneumonia, multiple allergies. HEME: Supratherapeutic INR On chronic Coumadin for DVT on admission. Anemia Vitamin B12 deficiency -s/p 3 units FFP, 10 mg IV vitamin K given -Status post 1 unit PRBC 10/13/2017 -Continue vitamin B12 supplementation 1000 mcg IM daily. ENDO: Hypothyroidism Hypocalcemia -Continue Synthroid 100 mcg per tube daily. -Electrolyte replacement per protocol PROPH: -Bilateral lower extremity SCDs. Chemical DVT prophylaxis contraindicated. IV famotidine LINES: -Right IJ central line placed in OR 10/13/2017 #9, removed.. Art line placed in OR has been removed. Overall impression: She is stronger during spontaneous breathing trials and meets criteria for extubation. I think she will protect her airway all right. Considerable improvement in general level of alertness today.
[2017-10-23 12:25] LABS: Albumin 1.7 g/dL (3.4-5.0); Anion Gap 11 meq/L (5-15); Aspartate Aminotransferase 138 U/L (15-37); Calcium 8.4 mg/dL (8.5-10.1); Carbon Dioxide 20.7 meq/L (21.0-32.0); Chloride 106 meq/L (98-107); Glomerular Filtration Rate 66 mL/min (>89); Glucose,Random 107 mg/dL (74-106); Potassium 5.3 meq/L (3.5-5.1)
[2017-10-23 12:29] LABS: Sodium 138 meq/L (136-145)
[2017-10-23 12:32] LABS: Alanine Aminotransferase 151 U/L (10-53); Alkaline Phosphatase 111 U/L (45-117); Blood Urea Nitrogen 23 mg/dL (7-18); Total Protein 5.8 g/dL (6.4-8.2)
[2017-10-23] MEDS: Levofloxacin 500 mg Premix Inj 500 MG/100 ML PIGGYBACK IV.SIG SCH (13:56)
--- NOTE | 2017-10-23 14:51 | P.DIET ---
Nutritional Evaluation Type of nutrition evaluation: initial Nutrition consult regarding: Tube Feeding Subjective Subjective Comments: s/p fall. Objective - Diagnosis Subdural hematoma, Acute - Objective % IBW: 171 Body Weight Used for Calculations: Upper end of IBW (101.2#/ 46 kg) Energy Needs - Lower Range (kCal/kg): 28 Energy Needs - Upper Range (kCal/kg): 32 Lower Limit kCal/kg (kCals): 1,288 Upper Limit kCal/kg (kCals): 1,472 Lower Limit Protein Factor (Grams per Kg): 1.2 Upper Limit Protein Factor (Grams per Kg): 1.6 Lower Protein Needs (Protein): 55 Upper Protein Needs (Protein): 74 Dietitian Reviewed in Medical Record: Curent medications, Intake & Output, Labs , Medical history, Tube feeding Diet Order: TF only Objective Comments: Hx includes seizure d/o, DVT on coumadin, skin CA on scalp, hypthyroid Meds include synthroid, lasix, lactulose 10/14 evac of L SDH LBM 10/23 CBW = 76.3 kg Feeding - Current Tube Feeding Tube Feeding Product: Jevity 1.5 Tube Feeding Method: Pump Tube Feeding Rate: 45 Medications That Affect Tube Feeding Run Time: Synthroid Total Time Off: 2 hours Assessment Assessment: Pt remains at high nutrition risk 2' to dx and the need for TFing. To meet needs with Jevity 1.5, recommend continue goal rate of 45 mls/hr x 22 hours (d/ t synthroid) to provide 1485 kcals, 63 gms protein and 752 mls of free water. Labs noted: elev K 5.3, glu 126, LFTs . Recommendations: Jevity 1.5 @ 45 mls/hr x 22 hours. TF must be held 1 hour before and after synthroid is given Dietitian to Monitor: Lab values, Intake & Output, Tube feeding tolerance, Weight change, Medical course
[2017-10-23] MEDS: Furosemide Inj 100 MG in Sodium Chlor 0.9% Inj 90 ML IV.CONT SCH (15:10)
[2017-10-23 23:15] LABS: Calcium 8.3 mg/dL (8.5-10.1); Carbon Dioxide 27.9 meq/L (21.0-32.0); Potassium 5.2 meq/L (3.5-5.1)
[2017-10-24] MEDS: Insulin NovoLOG Aspart Correctional Sugar Inj SQ SCH ×3 (03:29→20:14)
[2017-10-24] MEDS: Levothyroxine 100 MCG Tablet PO SCH (05:53)
[2017-10-24] MEDS: Oral Hygiene Kit OROPHARYNG SCH ×2 (05:53→20:49)
[2017-10-24 06:00] LABS: Alanine Aminotransferase 155 U/L (10-53); Alkaline Phosphatase 111 U/L (45-117); Anion Gap 9 meq/L (5-15); Aspartate Aminotransferase 114 U/L (15-37); Blood Urea Nitrogen 30 mg/dL (7-18); Calcium 8.6 mg/dL (8.5-10.1); Carbon Dioxide 28.3 meq/L (21.0-32.0); Chloride 101 meq/L (98-107); Glomerular Filtration Rate 52 mL/min (>89); Glucose,Random 99 mg/dL (74-106); Magnesium 2.5 mg/dL (1.5-2.5); Phosphorus 5.4 mg/dL (2.5-4.9); Potassium 4.3 meq/L (3.5-5.1); Sodium 138 meq/L (136-145); Total Protein 6.5 g/dL (6.4-8.2)
[2017-10-24] MEDS: Albumin Human 25% Inj 50 ML IV.SIG SCH (06:19)
--- NOTE | 2017-10-24 08:01 | P.PNCC ---
Subjective Subjective Remarks/Hospital Course: Patient is a 87-year-old female with past medical history significant for seizure disorder, history of DVT on Coumadin, history of recent skin cancer removed from scalp, hypothyroidism who presented to the emergency department for recurrent falls. She fell once yesterday and twice today. With last fall she did hit her head. Stat CT of the head showed 1 cm left subdural hemorrhage with moderate mass-effect left-sided subarachnoid hemorrhage and cortical contusion. Patient's INR was 4.4, patient was ordered to receive 10 mg vitamin K , and initially was ordered K Centra. Due to in availability of Kcentra 3 units of FFP was ordered. Dr. Kaba was consulted with advised reversal of anticoagulation first. Critical care was contacted for admission I evaluated the patient in the ICU. She is anxious but hemodynamically stable. There is mild facial droop and mild right-sided weakness right upper extremity. Three units of FFP, vitamin K done. I discussed with Dr. Kaba. He will re evaluate for surgical evacuation after complete reversal of anticoagulation. BUN/creatinine slightly elevated 23/1.24. Give 1 unit normal saline bolus and maintenance fluid at 50 mL/h with normal saline. Also start 2 % saline and 30 mL/h to target sodium more than 145. Her Dilantin level was 32.5 which is supratherapeutic corrected level is 37. Will hold Dilantin no other seizure prophylaxis needed at this time 10/13/17: Approximately at about 5:30 AM developed focal seizures, was bolused with a single dose of Keppra thousand milligrams IV 1. Currently on 500 mg IV twice daily. Dilantin uncorrected 27.7. CT head today shows there is a slight increase in size of the left subdural hematoma, with significant increase in posterior component. Hb 6.7 today, repeat CBC is pending. Check ABG stat as patient is more somnolent. But wakes up easily appears to be protecting airway at this time 10/14/17: s/p evacuation of left SDH, post op CT shows good evacuation with some residual blood. Pneumocephalus present. No further seizures postop. Dilantin level remains high at 27.7 7: Remains intubated critical. Sodium 155. Hypertonic saline. Opening eyes to voice when sedation held, and tracks. Hemodynamically remains stable. Dilantin level 23.3 today Subjective: 10/16 Hypertensive when sedation was weaned so started on cardene early this morning. CT brain to be repeated today per NSG. Follows commands by wiggling left toes. 10/17 Follows command with minimal movement L toes. On CPAP 01/18 for couple of hours but does not appear she would protect airway. Dilantin downtrending, albumin corrected is 32 10/18: Orally intubated on mechanical ventilation. Awake and alert. Tolerating tube feeds. Tolerating CPAP trial 10/19: Remains orally intubated on mechanical ventilation. Transfused 1 unit PRBCs yesterday. Tolerating tube feeds. Significant respiratory secretions noted. Will initiate empiric antibiotics as patient has leukocytosis. Sputum Gram stain and cultures ordered. 10/20: Afebrile. Remains on oral tracheal intubation. She does have significant secretions with culture previously. Started on levofloxacin yesterday. Currently on CPAP trial. Subjective: 10/21: T-max 100.7. Currently 99.1. Currently on propofol drip at 5 mcg/kg/min. Currently not following commands at this upper extremities. Will reassess after sedation removed. Tolerating tube feeding at goal. 10/22: Strong on CPAP/SBT but it is doubtful she will protect her airway. We will continue to hold sedation and see if she does not become more alert. 10/23: Much stronger on spontaneous breathing trial today. Will probably meet criteria for extubation. 10/24: The patient required BiPAP for about 12 hours yesterday due to diffuse wheezing and crackles. After an approximately 5-1/2 L diuresis her wheezes have resolved and she is able to tolerate 2 L nasal cannula. She protects her airway well. Update 0830 hrs: Patient developed generalized clonic seizure, self limiting after 5 mins X 2. Objective Vital Signs / I&O: Vital Signs 10/23/17 08:00 10/23/17 08:32 10/23/17 08:36 Temperature 98.5 F Pulse Rate 85 81 Respiratory Rate 25 H 19 21 Blood Pressure 154/70 H Pulse Oximetry 98 10/23/17 10:00 10/23/17 11:46 10/23/17 12:00 Temperature 98.3 F Pulse Rate 81 96 H 99 H Respiratory Rate 28 H 28 H Blood Pressure 155/68 H Pulse Oximetry 99 10/23/17 12:06 10/23/17 14:00 10/23/17 16:00 Temperature 98.8 F Pulse Rate 96 H 96 H Respiratory Rate 28 H Blood Pressure 141/67 H Pulse Oximetry 99 98 10/23/17 16:56 10/23/17 16:57 10/23/17 16:58 Temperature Pulse Rate 96 H 96 H Respiratory Rate 28 H Blood Pressure Pulse Oximetry 98 10/23/17 20:00 10/23/17 21:10 10/23/17 21:15 Temperature 98.7 F Pulse Rate 93 H 92 H Respiratory Rate 18 12 Blood Pressure 128/62 Pulse Oximetry 99 100 10/23/17 22:00 10/24/17 00:00 10/24/17 02:00 Temperature 97.8 F Pulse Rate 87 88 89 Respiratory Rate 16 Blood Pressure 117/58 L Pulse Oximetry 100 10/24/17 03:59 10/24/17 04:00 10/24/17 06:00 Temperature 97.9 F Pulse Rate 83 91 H 85 Respiratory Rate 16 22 Blood Pressure 122/58 L Pulse Oximetry 100 Intake & Output 10/23/17 10/24/17 10/24/17 18:59 06:59 18:59 Output Total 2800 / 2800 3000 / 3000 Balance -2800 / -2800 -3000 / -3000 Output: Urine Amount (Catheter) 2800 / 2800 3000 / 3000 Indwelling Urethral Catheter 2800 / 2800 3000 / 3000 Other: Date of Last Bowel Movement 10/23/17 10/23/17 Result Diagrams: 10/22/17 04:40 10/24/17 05:11 Objective Remarks: GENERAL: Elderly female, orotracheally intubated. SKIN: Warm/dry. HEAD: Small abrasion tip of nose. S/p L craniotomy with nataliya, c/d/i. EYES: Pupils equal and round, reactive, 2 mm. ENT: No nasal bleeding or discharge. Mucous membranes pink and moist. NECK: Trachea midline. Airway widely patent with no obstructive noises. CARDIOVASCULAR: Regular rate and rhythm. Grade 2 systolic murmur heard in all areas. JVD has resolved. RESPIRATORY: Mild accessory muscle use. Clear to auscultation. Breath sounds equal bilaterally. GASTROINTESTINAL: Abdomen soft, non-tender, nondistended. No guarding, bowel sounds present. MUSCULOSKELETAL: No obvious deformities. No clubbing. Trace + pitting edema all extremities. Warm, well-perfused. NEUROLOGICAL: Intubated. Pupils reactive as above equal. Opens eyes, makes eye contact and tracks. Moves left arm spontaneously and to stimulation. She is able to wiggle her left toes. Much more comfortable now. Assessment and Plan - Problem List (1) Dilantin toxicity Code(s): T42.0X1A - Poisoning by hydantoin derivatives, accidental ( unintentional), initial encounter Status: Acute (2) Subdural hematoma, acute Code(s): S06.5X9A - Traumatic subdural hemorrhage with loss of consciousness of unspecified duration, initial encounter Status: Acute (3) Seizure disorder Code(s): G40.909 - Epilepsy, unspecified, not intractable, without status epilepticus Status: Chronic (4) Respiratory failure, acute Code(s): J96.00 - Acute respiratory failure, unspecified whether with hypoxia or hypercapnia Status: Acute (5) HTN (hypertension) Code(s): I10 - Essential (primary) hypertension Status: Chronic (6) Hypothyroid Code(s): E03.9 - Hypothyroidism, unspecified Status: Chronic (7) B12 deficiency Code(s): E53.8 - Deficiency of other specified B group vitamins Status: Chronic - Assessment and Plan Plan: A/P Assessment and Plan NEURO: Status post fall with left subdural, subarachnoid hemorrhage and cortical contusion, moderate mass-effect Dilantin toxicity Recurrent seizures Seizure disorder -CT of the head 10/12: 1 cm left subdural hemorrhage with moderate mass-effect left-sided SAH and cortical contusion. Repeat CT 10/13 increasing subdural hemorrhage -Status post craniotomy and evacuation of left subdural hemorrhage 10/13/2017. Postop CT showed improved subdural hemorrhage with some pneumocephalus. -Repeat CT brain today per neurosurgery. -No further seizures postop. Dilantin level remains high at 23.3 on 10/15. -Continue Keppra 500 mg IV every 12. -EEG 10/15 slightly higher amplitude on the left. No seizure activity. -Replace calcium, keep magnesium above 2 -Off versed. Wean fentanyl infusions. NSG also agreeable to sedation vacation. -Recurrent fall was most likely secondary to Dilantin toxicity. -dc 2% saline, keep sodium 150-155 -Avoid hyponatremia hypomagnesemia hypoxia -B12 supplementation as per below. -Electrolytes acceptable. -Recurrent seizures -10/24 RESP: Acute respiratory failure -PRVC/AC -SBT today. -DuoNeb every 6 hours as needed -We will discontinue BiPAP today and convert to nasal cannula CV: Hypertension -KVO MIVF. -Stopped 2% Saline -IV labetalol 10 mg every 2 hours as needed for SBP more than 150 -Weaned off cardene drip. GI: -Hold tube feeds with Jevity 1.5 @ 45ml/hr per nutrition recs. -IV famotidine : Acute kidney injury -Monitor renal function closely. ID: -Levaquin for Enterobacter pneumonia, multiple allergies. HEME: Supratherapeutic INR On chronic Coumadin for DVT on admission. Anemia Vitamin B12 deficiency -s/p 3 units FFP, 10 mg IV vitamin K given -Status post 1 unit PRBC 10/13/2017 -Continue vitamin B12 supplementation 1000 mcg IM daily. ENDO: Hypothyroidism Hypocalcemia -Continue Synthroid 100 mcg per tube daily. -Electrolyte replacement per protocol PROPH: -Bilateral lower extremity SCDs. Chemical DVT prophylaxis contraindicated. IV famotidine LINES: -Right IJ central line placed in OR 10/13/2017 #9, removed.. Art line placed in OR has been removed. Overall impression: She met criteria for extubation early yesterday morning and event. About 4 hours after extubation she developed much more labored respiratory effort associated with diffuse crackles and wheezes. She required BiPAP noninvasive ventilation for about 12 hours while we diuresed about 5-1/2 L of free water from her. Today her respiratory status is much improved and she has been converted back to 2 L nasal cannula. Recurrent seizures treated with Ativan followed by re-bolus of Keppra and conversion of Keppra to intravenous form. (4) Respiratory failure, acute Qualifiers: Respiratory failure complication: hypoxia Qualified Code(s): J96.01 - Acute respiratory failure with hypoxia
[2017-10-24] MEDS: amLODIPine 10 MG Tablet NG/OG SCH ×2 (08:05→08:25)
[2017-10-24] MEDS ORDERED: levETIRAcetam 1000mg/100mL Inj 100 ML IV.SIG ONE (08:36)
[2017-10-24 10:04] LABS: ABG Base Excess 4.7 mmol/L (-2-2); ABG PCO2 38 mmHg (38-42); ABG PO2 92 mmHg (61-120)
--- NOTE | 2017-10-24 10:49 | XR ---
EXAM DATE: 10/24/2017 10:41 AM EDT AGE/SEX: 87 years / Female INDICATIONS: Short of breath. CLINICAL DATA: This is the patient's subsequent encounter. Patient reports that signs and symptoms h ave been present for 2 weeks and indicates a pain score of Nonresponsive. MEDICAL/SURGICAL HISTORY: Non-responsive. Non-responsive. COMPARISON: [facility], CHEST 1V SINGLE AP, 10/22/2017. . FINDINGS: Endotracheal and nasogastric tubes have been removed. There is slight improvement in lung aeration wi th decreasing airspace disease. Heart and mediastinal structures are stable CONCLUSION: Persistent but decreasing bibasilar airspace disease. Status post extubation. Electronically signed by: Angel Jaeger MD 10/24/2017 10:48 AM EDT
[2017-10-24] MEDS: Levofloxacin 500 mg Premix Inj 500 MG/100 ML PIGGYBACK IV.SIG SCH (12:36)
[2017-10-24] MEDS ORDERED: levETIRAcetam 500mg/100mL Inj 100 ML IV.SIG SCH (18:00)
--- NOTE | 2017-10-24 18:43 | P.PNNS ---
Subjective Interval history: Patient has undergone left craniotomy evacuation for left hemisphere acute subdural hematoma on 10/13/2017. Pre-existing history of seizures with additional seizure activity noted preoperative. Patient intubated prior to surgery for decline in neurologic exam with follow-up CT scan 10/13/2017 revealing mild increase in left hemisphere subdural hematoma without additional mass-effect. 10/14/2017: CT scan head with good evacuation of left hemisphere subdural hematoma. Persistent enlargement of right subdural-subarachnoid space. Persistent mild to moderate left convexity subarachnoid hemorrhage. Ventricles remain symmetric. No significant pneumocephalus. Hemoglobin 7.8. Positive hypokalemia. No further seizure activity reported. Remains intubated with mild sedation. 10/15/2017: Patient is now postop day #2 status post left craniotomy for evacuation of subdural hematoma. She remains intubated. Weaning sedation today. No seizure activity noted Still significant CSF output from the drain, now being compressed only once per shift. 10/16: Patient is in bed when seen. She continues to be intubated and mechanically ventilated. She does open her eyes to voice. She is not following any commands but did move the left upper and both lower extremities to noxious stimulation. She had no response with the right upper except for facial grimacing. 10/17/17: Pt opens eyes. Pupils 4mm bilaterally. She moves left foot to command but not following with extremities otherwise. She is intubated and on Cardene drip. Left crani clean and dry. TATA drain in place. 10/18: When seen this afternoon the patient is awake in bed. She is intubated and on CPAP/PSV. She has no sedation infusing. She did not follow any commands. She moved the left upper and both lower extremities to stimulation but not the right upper. Nursing reported that she did move the left foot a couple times today to command and earlier became agitated and was moving both upper extremities spontaneously. 10/19: Patient with eyes closed when seen this morning. She was noted to move the left foot and left hand spontaneously prior to being evaluated. She did not open her eyes to any stimulation. She did move the left side to command and the right to noxious stimulation. She remains intubated and is on CPAP/PSV settings. 10/22: Patient remains on ventilator-CPAP trials No seizure activity reported over the weekend 10/24: This morning the patient had two generalised clonic seizures that were self-limiting. When seen this afternoon the patient was awake and alert. She was on a nasal cannula but did have audible secretions to the back of the throat. She was seen to move the distal left upper extremity spontaneously but did not follow any commands. She did move all extremities slightly to noxious stimulation. <Julio Ricketts E - Last Filed: 10/24/17 18:49> Physical Exam Vital signs: Vital Signs 10/23/17 20:00 10/23/17 21:10 10/23/17 21:15 Temperature 98.7 F Pulse Rate 93 H 92 H Respiratory Rate 18 12 Blood Pressure 128/62 Pulse Oximetry 99 100 10/23/17 22:00 10/24/17 00:00 10/24/17 02:00 Temperature 97.8 F Pulse Rate 87 88 89 Respiratory Rate 16 Blood Pressure 117/58 L Pulse Oximetry 100 10/24/17 03:59 10/24/17 04:00 10/24/17 06:00 Temperature 97.9 F Pulse Rate 83 91 H 85 Respiratory Rate 16 22 Blood Pressure 122/58 L Pulse Oximetry 100 10/24/17 08:00 10/24/17 08:54 10/24/17 12:00 Temperature 98.2 F 98.7 F Pulse Rate 90 90 89 Respiratory Rate 19 20 27 H Blood Pressure 152/74 H 130/62 Pulse Oximetry 98 96 100 10/24/17 13:45 10/24/17 16:00 Temperature Pulse Rate 88 80 Respiratory Rate Blood Pressure Pulse Oximetry Intake & Output 10/23/17 10/24/17 10/24/17 18:59 06:59 18:59 Intake Total 100 / 100 Output Total 2800 / 2800 3000 / 3000 Balance -2700 / -2700 -3000 / -3000 Intake: IV 100 / 100 Levaquin 500 mg Premix Inj 500 100 / 100 mg In 100 ml @ 100 mls/hr IV. SIG Q[facility]H [facility] Rx#:[id number] Output: Urine Amount (Catheter) 2800 / 2800 3000 / 3000 Indwelling Urethral Catheter 2800 / 2800 3000 / 3000 Other: Date of Last Bowel Movement 10/23/17 10/23/17 10/24/17 Narrative: GENERAL: Awake & alert in bed. On nasal cannula. No apparent distress. HEENT: Normocephalic. Well approximated surgical incisions w/nataliya intact, no evident drainage, erythema or streaking. Pupils 3-4 mm reactive. Nasal trumpet to right nare. Audible secretions to oropharynx. MUSCULOSKELETAL: Moved distal LUE spontaneously and moved all extremities to noxious stimulation. No evident clubbing or deformity. NEUROLOGICAL: Awake & alert. Pupils 3-4 mm reactive. Does try to verbalise a few words, guttural. Spontaneously moved distal LUE. Did not follow any commands. She moved all extremities to local noxious stimulation. - Urinary Catheter Management Indwelling Urethral Catheter Cath placed during this visit: yes Reason for continuing: Hourly intake/output Insertion date: 10/12/17 Insertion time: 08:13 <Julio Ricketts - Last Filed: 10/24/17 18:49> - Urinary Catheter Management Indwelling Urethral Catheter Cath placed during this visit: no <Richard Kaba - Last Filed: 12/06/17 23:07> Assessment and Plan - Plan Impression: 1. Stable neurologic exam and postoperative CT scan following evacuation acute left hemisphere subdural hematoma 10/14/2017. Seizure disorder Patient awake & alert. Trying to verbalise a few words but guttural. Spontaneous movement of distal LUE. BAKER to noxious stimulation. Generalised seizures this AM. Past 24 hrs: Afebrile. Reviewed labs for today. Sodium 138. eGFR 52. Elevated transaminases. CT brain demonstrated chronic right & subacute left SDH w/o significant change & 6 mm leftward midline shift; no new haemorrhage; increased bifrontal subdural pneumocephaly. Plan: 1. Continue respiratory support. 2. Continue Keppra. Dilantin held secondary to toxicity on initial presentation 3. Electrolyte replacement 4. Monitor hemoglobin 5. CT brain in AM. If any further seizures, then stat. <Julio Ricketts - Last Filed: 10/24/17 18:49> - Assessment (1) Subdural hematoma, acute Code(s): S06.5X9A - Traumatic subdural hemorrhage with loss of consciousness of unspecified duration, initial encounter Status: Acute - Attending Attestation The exam, history, and the medical decision-making described in the above note were completed with the assistance of the mid-level provider. I reviewed and agree with the findings presented. I attest that I had a [id number] encounter with the patient on the same day, and personally performed and documented my assessment and findings in the medical record. <Richard Kaba - Last Filed: 12/06/17 23:07>
[2017-10-24] MEDS: Chlorhexidine Gluconate 0.12% Liq 15 ML UDC SWISH-SPIT SCH ×2 (19:59→20:46)
[2017-10-24] MEDS: Senna/Docusate Sodium 8.6/50 MG Tablet PO SCH ×2 (19:59→20:47)
[2017-10-24] MEDS: Polyethylene Glycol 3350 17 GM Packet PO SCH ×2 (19:59→20:47)
[2017-10-24] MEDS: Artificial Tears Opth Drops 15 ML Bottle EACH EYE SCH ×3 (20:47→21:15)
[2017-10-24] MEDS: Furosemide Inj 100 MG in Sodium Chlor 0.9% Inj 90 ML IV.CONT SCH (20:48)
[2017-10-24] MEDS: Chlorhexidine Gluconate 2% 1 Pack (2 Cloths) TOPICAL SCH (20:48)
[2017-10-25] MEDS: Oral Hygiene Kit OROPHARYNG SCH ×4 (00:08→17:56)
[2017-10-25] MEDS: Insulin NovoLOG Aspart Correctional Sugar Inj SQ SCH ×6 (00:08→21:03)
--- NOTE | 2017-10-25 04:36 | CT ---
EXAM DATE: 10/25/2017 4:18 AM EDT AGE/SEX: 87 years / Female INDICATIONS: Evaluate bleed; seizure. CLINICAL DATA: This is the patient's initial encounter. Patient reports that signs and symptoms have been present for 1 day and indicates a pain score of Nonresponsive. MEDICAL/SURGICAL HISTORY: Hypertension. Seizure. None. RADIATION DOSE: 56.35 CTDI (mGy) COMPARISON: [facility] [place], CT HEAD W/O CONTRAST, 10/19/2017. . TECHNIQUE: CT of the head without contrast. Using automated exposure control and adjustment of the mA and/or kV according to patient size, radiation dose was kept as low as reasonably achievable to ob tain optimal diagnostic quality images. DICOM format image data is available electronically for revi ew and comparison. FINDINGS: Cerebrum: Interval removal of left subdural drain with minimal residual anterior left frontal pneumo cephalus. Evolving subdural blood products overlying the left vertex measuring 6 mm along the falx co mpared to 9 mm on prior exam and 10 mm in the left posterior parietal high convexities compared to 13 mm in prior exam. Stable uniformly hypodense chronic right-sided subdural hygroma. Interval resoluti on of right to left subfalcine shift. No intercurrent hemorrhage. Ventricles are stable in size. Posterior Fossa: The cerebellum and brainstem are intact. The 4th ventricle is midline. The cerebe llopontine angle is unremarkable. Extracranial: The visualized portion of the orbits is intact. Skull: Left parietal craniotomy. CONCLUSION: 1. Interval removal of left subdural drain with minimal residual anterior left frontal pneumocephalu s. 2. Improving subdural blood products overlying the left vertex, as above. 3. Stable chronic right-sided subdural hygroma. 4. Interval resolution of right to left subfalcine shift. 5. No intercurrent hemorrhage or hydrocephalus. Electronically signed by: Ramon Guerrero MD 10/25/2017 4:35 AM EDT
[2017-10-25] MEDS: Chlorhexidine Gluconate 2% 1 Pack (2 Cloths) TOPICAL SCH (04:41)
--- NOTE | 2017-10-25 06:35 | P.PNCC ---
Subjective Subjective Remarks/Hospital Course: Patient is a 87-year-old female with past medical history significant for seizure disorder, history of DVT on Coumadin, history of recent skin cancer removed from scalp, hypothyroidism who presented to the emergency department for recurrent falls. She fell once yesterday and twice today. With last fall she did hit her head. Stat CT of the head showed 1 cm left subdural hemorrhage with moderate mass-effect left-sided subarachnoid hemorrhage and cortical contusion. Patient's INR was 4.4, patient was ordered to receive 10 mg vitamin K , and initially was ordered K Centra. Due to in availability of Kcentra 3 units of FFP was ordered. Dr. Kaba was consulted with advised reversal of anticoagulation first. Critical care was contacted for admission I evaluated the patient in the ICU. She is anxious but hemodynamically stable. There is mild facial droop and mild right-sided weakness right upper extremity. Three units of FFP, vitamin K done. I discussed with Dr. Kaba. He will re evaluate for surgical evacuation after complete reversal of anticoagulation. BUN/creatinine slightly elevated 23/1.24. Give 1 unit normal saline bolus and maintenance fluid at 50 mL/h with normal saline. Also start 2 % saline and 30 mL/h to target sodium more than 145. Her Dilantin level was 32.5 which is supratherapeutic corrected level is 37. Will hold Dilantin no other seizure prophylaxis needed at this time 10/13/17: Approximately at about 5:30 AM developed focal seizures, was bolused with a single dose of Keppra thousand milligrams IV 1. Currently on 500 mg IV twice daily. Dilantin uncorrected 27.7. CT head today shows there is a slight increase in size of the left subdural hematoma, with significant increase in posterior component. Hb 6.7 today, repeat CBC is pending. Check ABG stat as patient is more somnolent. But wakes up easily appears to be protecting airway at this time 10/14/17: s/p evacuation of left SDH, post op CT shows good evacuation with some residual blood. Pneumocephalus present. No further seizures postop. Dilantin level remains high at 27.7 7: Remains intubated critical. Sodium 155. Hypertonic saline. Opening eyes to voice when sedation held, and tracks. Hemodynamically remains stable. Dilantin level 23.3 today Subjective: 10/16 Hypertensive when sedation was weaned so started on cardene early this morning. CT brain to be repeated today per NSG. Follows commands by wiggling left toes. 10/17 Follows command with minimal movement L toes. On CPAP 01/18 for couple of hours but does not appear she would protect airway. Dilantin downtrending, albumin corrected is 32 10/18: Orally intubated on mechanical ventilation. Awake and alert. Tolerating tube feeds. Tolerating CPAP trial 10/19: Remains orally intubated on mechanical ventilation. Transfused 1 unit PRBCs yesterday. Tolerating tube feeds. Significant respiratory secretions noted. Will initiate empiric antibiotics as patient has leukocytosis. Sputum Gram stain and cultures ordered. 10/20: Afebrile. Remains on oral tracheal intubation. She does have significant secretions with culture previously. Started on levofloxacin yesterday. Currently on CPAP trial. Subjective: 10/21: T-max 100.7. Currently 99.1. Currently on propofol drip at 5 mcg/kg/min. Currently not following commands at this upper extremities. Will reassess after sedation removed. Tolerating tube feeding at goal. 10/22: Strong on CPAP/SBT but it is doubtful she will protect her airway. We will continue to hold sedation and see if she does not become more alert. 10/23: Much stronger on spontaneous breathing trial today. Will probably meet criteria for extubation. 10/24: The patient required BiPAP for about 12 hours yesterday due to diffuse wheezing and crackles. After an approximately 5-1/2 L diuresis her wheezes have resolved and she is able to tolerate 2 L nasal cannula. She protects her airway well. Update 0830 hrs: Patient developed generalized clonic seizure, self limiting after 5 mins X 2. 10/25: Several more seizures yesterday last night. Generalized clonic with postictal state afterwards. Keppra increased to 1000 mg IV twice daily. We may need to restart her Dilantin. Her Dilantin toxicity was not an idiosyncratic reaction to the medication but rather excessive levels in the toxic effect. It would probably be safe to restart Dilantin with close monitoring of serum levels. Breathing remains acceptable after a 7-1/2 L diuresis over 48 hours. Objective Vital Signs / I&O: Vital Signs 10/24/17 08:00 10/24/17 08:54 10/24/17 12:00 Temperature 98.2 F 98.7 F Pulse Rate 90 90 89 Respiratory Rate 19 20 27 H Blood Pressure 152/74 H 130/62 Pulse Oximetry 98 96 100 10/24/17 13:45 10/24/17 16:00 10/24/17 18:00 Temperature 98.8 F Pulse Rate 88 80 80 Respiratory Rate 25 H Blood Pressure 138/64 Pulse Oximetry 96 10/24/17 20:00 10/24/17 21:21 10/24/17 22:00 Temperature 98.4 F Pulse Rate 84 82 Respiratory Rate 28 H Blood Pressure 148/67 H Pulse Oximetry 100 100 10/25/17 00:00 10/25/17 02:00 10/25/17 04:00 Temperature 99.0 F 98.7 F Pulse Rate 90 76 82 Respiratory Rate 23 23 Blood Pressure 140/65 128/60 Pulse Oximetry 99 100 10/25/17 06:00 Temperature Pulse Rate 84 Respiratory Rate Blood Pressure Pulse Oximetry Intake & Output 10/24/17 10/24/17 10/25/17 06:59 18:59 06:59 Intake Total 100 / 100 Output Total 3000 / 3000 2150 / 2150 Balance -3000 / -3000 -2150 / -2150 100 / 100 Intake: IV 100 / 100 Levaquin 500 mg Premix Inj 500 100 / 100 mg In 100 ml @ 100 mls/hr IV. SIG Q24H [facility]Y Rx#:[id number] Output: Urine Amount (Catheter) 3000 / 3000 2150 / 2150 Indwelling Urethral Catheter 3000 / 3000 2150 / 2150 Gastric Drainage 0 / 0 Orogastric Tube 0 / 0 Wound Drainage 0 / 0 Posterior Head TATA Drain 0 / 0 Other: Date of Last Bowel Movement 10/23/17 10/24/17 10/24/17 # Bowel Movements 2 Result Diagrams: 10/22/17 04:40 10/24/17 05:11 Objective Remarks: GENERAL: Elderly female, postictal presently SKIN: Warm/dry. HEAD: Small abrasion tip of nose. S/p L craniotomy with nataliya, c/d/i. EYES: Pupils equal and round, reactive, 2 mm. ENT: No nasal bleeding or discharge. Mucous membranes pink and moist. NECK: Trachea midline. Airway widely patent with no obstructive noises. Mild snoring. CARDIOVASCULAR: Regular rate and rhythm. Grade 2 systolic murmur heard in all areas. JVD has resolved. RESPIRATORY: Mild accessory muscle use. Clear to auscultation. Breath sounds equal bilaterally. Comfortable respiratory pattern. GASTROINTESTINAL: Abdomen soft, non-tender, nondistended. No guarding, bowel sounds present. MUSCULOSKELETAL: No obvious deformities. No clubbing. Trace + pitting edema all extremities. Warm, well-perfused. NEUROLOGICAL: Pupils reactive. Opens eyes, makes eye contact and tracks. Attempts to form words. Moves left arm spontaneously and to stimulation. She is able to wiggle her left toes. Post ictal state presently. Assessment and Plan - Problem List (1) Dilantin toxicity Code(s): T42.0X1A - Poisoning by hydantoin derivatives, accidental ( unintentional), initial encounter Status: Acute (2) Subdural hematoma, acute Code(s): S06.5X9A - Traumatic subdural hemorrhage with loss of consciousness of unspecified duration, initial encounter Status: Acute (3) Seizure disorder Code(s): G40.909 - Epilepsy, unspecified, not intractable, without status epilepticus Status: Chronic (4) Respiratory failure, acute Code(s): J96.00 - Acute respiratory failure, unspecified whether with hypoxia or hypercapnia Status: Acute (5) HTN (hypertension) Code(s): I10 - Essential (primary) hypertension Status: Chronic (6) Hypothyroid Code(s): E03.9 - Hypothyroidism, unspecified Status: Chronic (7) B12 deficiency Code(s): E53.8 - Deficiency of other specified B group vitamins Status: Chronic - Assessment and Plan Plan: A/P Assessment and Plan NEURO: Status post fall with left subdural, subarachnoid hemorrhage and cortical contusion, moderate mass-effect Dilantin toxicity Recurrent seizures Seizure disorder -CT of the head 10/12: 1 cm left subdural hemorrhage with moderate mass-effect left-sided SAH and cortical contusion. Repeat CT 10/13 increasing subdural hemorrhage -Status post craniotomy and evacuation of left subdural hemorrhage 10/13/2017. Postop CT showed improved subdural hemorrhage with some pneumocephalus. -Repeat CT brain today per neurosurgery. -No further seizures postop. Dilantin level remains high at 23.3 on 10/15. -Continue Keppra 500 mg IV every 12. -EEG 10/15 slightly higher amplitude on the left. No seizure activity. -Replace calcium, keep magnesium above 2 -Off versed. Wean fentanyl infusions. NSG also agreeable to sedation vacation. -Recurrent fall was most likely secondary to Dilantin toxicity. -dc 2% saline, keep sodium 150-155 -Avoid hyponatremia hypomagnesemia hypoxia -B12 supplementation as per below. -Electrolytes acceptable. -Recurrent seizures -10/24 RESP: Acute respiratory failure -PRVC/AC -SBT today. -DuoNeb every 6 hours as needed -We will discontinue BiPAP today and convert to nasal cannula CV: Hypertension -KVO MIVF. -Stopped 2% Saline -IV labetalol 10 mg every 2 hours as needed for SBP more than 150 -Weaned off cardene drip. GI: -Hold tube feeds with Jevity 1.5 @ 45ml/hr per nutrition recs. -IV famotidine : Acute kidney injury -Monitor renal function closely. -7500 mL diuresis, will discontinue Lasix drip. ID: -Levaquin for Enterobacter pneumonia, multiple allergies. HEME: Supratherapeutic INR On chronic Coumadin for DVT on admission. Anemia Vitamin B12 deficiency -s/p 3 units FFP, 10 mg IV vitamin K given -Status post 1 unit PRBC 10/13/2017 -Continue vitamin B12 supplementation 1000 mcg IM daily. ENDO: Hypothyroidism Hypocalcemia -Continue Synthroid 100 mcg per tube daily. -Electrolyte replacement per protocol PROPH: -Bilateral lower extremity SCDs. Chemical DVT prophylaxis contraindicated. IV famotidine LINES: -Right IJ central line placed in OR 10/13/2017 #9, removed.. Art line placed in OR has been removed. Overall impression: She met criteria for extubation early 10/23 morning and event. About 4 hours after extubation she developed much more labored respiratory effort associated with diffuse crackles and wheezes. She required BiPAP noninvasive ventilation for about 12 hours while we diuresed about 5-1/2 L of free water from her. On10/24 her respiratory status is much improved and she has been converted back to 2 L nasal cannula. Recurrent seizures treated with Ativan followed by re-bolus of Keppra and conversion of Keppra to intravenous form. She is continued to have self terminating breakthrough seizures on Keppra 500 mg twice daily we will increase the dose and consider adding back Dilantin. (4) Respiratory failure, acute Qualifiers: Respiratory failure complication: hypoxia Qualified Code(s): J96.01 - Acute respiratory failure with hypoxia
[2017-10-25] MEDS: Artificial Tears Opth Drops 15 ML Bottle EACH EYE SCH ×3 (09:19→22:06)
--- NOTE | 2017-10-25 11:32 | P.PNNS ---
Subjective Interval history: Patient has undergone left craniotomy evacuation for left hemisphere acute subdural hematoma on 10/13/2017. Pre-existing history of seizures with additional seizure activity noted preoperative. Patient intubated prior to surgery for decline in neurologic exam with follow-up CT scan 10/13/2017 revealing mild increase in left hemisphere subdural hematoma without additional mass-effect. 10/14/2017: CT scan head with good evacuation of left hemisphere subdural hematoma. Persistent enlargement of right subdural-subarachnoid space. Persistent mild to moderate left convexity subarachnoid hemorrhage. Ventricles remain symmetric. No significant pneumocephalus. Hemoglobin 7.8. Positive hypokalemia. No further seizure activity reported. Remains intubated with mild sedation. 10/15/2017: Patient is now postop day #2 status post left craniotomy for evacuation of subdural hematoma. She remains intubated. Weaning sedation today. No seizure activity noted Still significant CSF output from the drain, now being compressed only once per shift. 10/16: Patient is in bed when seen. She continues to be intubated and mechanically ventilated. She does open her eyes to voice. She is not following any commands but did move the left upper and both lower extremities to noxious stimulation. She had no response with the right upper except for facial grimacing. 10/17/17: Pt opens eyes. Pupils 4mm bilaterally. She moves left foot to command but not following with extremities otherwise. She is intubated and on Cardene drip. Left crani clean and dry. TATA drain in place. 10/18: When seen this afternoon the patient is awake in bed. She is intubated and on CPAP/PSV. She has no sedation infusing. She did not follow any commands. She moved the left upper and both lower extremities to stimulation but not the right upper. Nursing reported that she did move the left foot a couple times today to command and earlier became agitated and was moving both upper extremities spontaneously. 10/19: Patient with eyes closed when seen this morning. She was noted to move the left foot and left hand spontaneously prior to being evaluated. She did not open her eyes to any stimulation. She did move the left side to command and the right to noxious stimulation. She remains intubated and is on CPAP/PSV settings. 10/22: Patient remains on ventilator-CPAP trials No seizure activity reported over the weekend 10/24: This morning the patient had two generalised clonic seizures that were self-limiting. When seen this afternoon the patient was awake and alert. She was on a nasal cannula but did have audible secretions to the back of the throat. She was seen to move the distal left upper extremity spontaneously but did not follow any commands. She did move all extremities slightly to noxious stimulation. 10/25: When seen the patient is very drowsy. She verbalised several words in response to this practitioner's voice but they were muttered. She did not open her eyes at all. She moved the left foot and toes to light touch and all extremities to noxious stimulation. Nursing reported that earlier she did follow commands for her. She also reported that the patient had two further seizures during the night. The patient went for a CT brain this morning which demonstrated improvement in the left side subdural haematoma and the right side subdural hygroma being stable. <Julio Ricketts E - Last Filed: 10/25/17 11:37> Physical Exam Vital signs: Vital Signs 10/24/17 12:00 10/24/17 13:45 10/24/17 16:00 Temperature 98.7 F 98.8 F Pulse Rate 89 88 80 Respiratory Rate 27 H 25 H Blood Pressure 130/62 138/64 Pulse Oximetry 100 96 10/24/17 18:00 10/24/17 20:00 10/24/17 21:21 Temperature 98.4 F Pulse Rate 80 84 Respiratory Rate 28 H Blood Pressure 148/67 H Pulse Oximetry 100 100 10/24/17 22:00 10/25/17 00:00 10/25/17 02:00 Temperature 99.0 F Pulse Rate 82 90 76 Respiratory Rate 23 Blood Pressure 140/65 Pulse Oximetry 99 10/25/17 04:00 10/25/17 06:00 10/25/17 08:28 Temperature 98.7 F Pulse Rate 82 84 Respiratory Rate 23 Blood Pressure 128/60 Pulse Oximetry 100 94 L Intake & Output 10/24/17 10/25/17 10/25/17 18:59 06:59 18:59 Intake Total 100 / 100 Output Total 2150 / 2150 900 / 900 Balance -2150 / -2150 -800 / -800 Weight 72.9 kg Intake: IV 100 / 100 Levaquin 500 mg Premix Inj 500 100 / 100 mg In 100 ml @ 100 mls/hr IV. SIG Q24H [facility] Rx#:[id number] Output: Urine Amount (Catheter) 2149 900 / 900 Indwelling Urethral Catheter 2149 900 / 900 Gastric Drainage 0 / 0 Orogastric Tube 0 / 0 Wound Drainage 0 / 0 Posterior Head TATA Drain 0 / 0 Other: Date of Last Bowel Movement 10/24/17 10/24/17 # Bowel Movements 2 1 Narrative: GENERAL: Very drowsy this morning. No eye opening but did verbalise some in response. On nasal cannula. No apparent distress. HEENT: Normocephalic. Well approximated surgical incisions w/nataliya intact, no evident drainage, erythema or streaking. Pupils 3-4 mm reactive. MUSCULOSKELETAL: Moved all extremities to stimulation. No evident clubbing or deformity. NEUROLOGICAL: Very drowsy. No eye opening. Pupils 3-4 mm reactive. Does try to verbalise several words in a sentence, muttered. Did not follow any commands. Spontaneously move left foot/toes to touch before any noxious stimulation. She moved all extremities to local noxious stimulation. - Urinary Catheter Management Indwelling Urethral Catheter Cath placed during this visit: yes Reason for continuing: Hourly intake/output Insertion date: 10/12/17 Insertion time: 08:13 <Julio Ricktets - Last Filed: 10/25/17 11:37> - Urinary Catheter Management Indwelling Urethral Catheter Cath placed during this visit: no <Richard Kaba - Last Filed: 12/06/17 23:02> Assessment and Plan - Plan Impression: 1. Stable neurologic exam and postoperative CT scan following evacuation acute left hemisphere subdural hematoma 10/14/2017. Seizure disorder Patient very drowsy this morning. Trying to verbalise several words as a sentence but garbled. Moved left foot & toes to light touch & BAKER to noxious stimulation. Generalised seizures during night. Past 24 hrs: Afebrile. Labs pending for today. CT brain demonstrated improving left SDH w/resolution of right to left shift; stable chronic right subdural hygroma; minimal left frontal pneumocephaly; no intercurrent haemorrhage or hydrocephalus. Plan: 1. Continue respiratory support. 2. Continue Keppra. Dilantin held secondary to toxicity on initial presentation 3. Electrolyte replacement 4. Monitor hemoglobin <Julio Ricketts - Last Filed: 10/25/17 11:37> - Assessment (1) Subdural hematoma, acute Code(s): S06.5X9A - Traumatic subdural hemorrhage with loss of consciousness of unspecified duration, initial encounter Status: Acute - Attending Attestation The exam, history, and the medical decision-making described in the above note were completed with the assistance of the mid-level provider. I reviewed and agree with the findings presented. I attest that I had a [id number] encounter with the patient on the same day, and personally performed and documented my assessment and findings in the medical record. <Richard Kaba - Last Filed: 12/06/17 23:02>
[2017-10-25 12:19] LABS: Albumin 2.2 g/dL (3.4-5.0); Anion Gap 16 meq/L (5-15); Aspartate Aminotransferase 72 U/L (15-37); Blood Urea Nitrogen 28 mg/dL (7-18); Calcium 9.3 mg/dL (8.5-10.1); Carbon Dioxide 20.4 meq/L (21.0-32.0); Chloride 101 meq/L (98-107); Glomerular Filtration Rate 50 mL/min (>89); Glucose,Random 67 mg/dL (74-106); Magnesium 2.5 mg/dL (1.5-2.5); Sodium 137 meq/L (136-145)
[2017-10-25 12:25] LABS: Alanine Aminotransferase 116 U/L (10-53); Alkaline Phosphatase 99 U/L (45-117); Phosphorus 4.1 mg/dL (2.5-4.9); Total Protein 6.7 g/dL (6.4-8.2)
[2017-10-25] MEDS: Chlorhexidine Gluconate 0.12% Liq 15 ML UDC SWISH-SPIT SCH ×2 (13:32→20:00)
[2017-10-25] MEDS: Polyethylene Glycol 3350 17 GM Packet PO SCH ×2 (13:33→21:00)
[2017-10-25] MEDS: amLODIPine 10 MG Tablet NG/OG SCH (13:33)
[2017-10-25] MEDS: Senna/Docusate Sodium 8.6/50 MG Tablet PO SCH ×2 (13:33→21:00)
[2017-10-25] MEDS: Levothyroxine 100 MCG Tablet PO SCH (13:35)
[2017-10-25] MEDS: Levofloxacin 500 mg Premix Inj 500 MG/100 ML PIGGYBACK IV.SIG SCH (13:42)
[2017-10-26] MEDS: Oral Hygiene Kit OROPHARYNG SCH ×4 (04:07→16:46)
[2017-10-26] MEDS: Chlorhexidine Gluconate 2% 1 Pack (2 Cloths) TOPICAL SCH (04:07)
[2017-10-26] MEDS: Insulin NovoLOG Aspart Correctional Sugar Inj SQ SCH ×5 (04:43→16:45)
[2017-10-26 05:55] LABS: Calcium 9.1 mg/dL (8.5-10.1); Carbon Dioxide 27.7 meq/L (21.0-32.0); Magnesium 2.5 mg/dL (1.5-2.5); Potassium 3.4 meq/L (3.5-5.1)
[2017-10-26 05:57] LABS: Phosphorus 3.7 mg/dL (2.5-4.9)
[2017-10-26] MEDS: Levothyroxine 100 MCG Tablet PO SCH (06:28)
[2017-10-26] MEDS: Artificial Tears Opth Drops 15 ML Bottle EACH EYE SCH ×2 (06:29→16:12)
[2017-10-26] MEDS: Polyethylene Glycol 3350 17 GM Packet PO SCH (08:35)
[2017-10-26] MEDS: amLODIPine 10 MG Tablet NG/OG SCH (08:35)
[2017-10-26] MEDS: Senna/Docusate Sodium 8.6/50 MG Tablet PO SCH (08:35)
[2017-10-26] MEDS: levETIRAcetam 1000mg/100mL Inj 100 ML IV.SIG SCH ×2 (09:04→17:08)
[2017-10-26] MEDS: Chlorhexidine Gluconate 0.12% Liq 15 ML UDC SWISH-SPIT SCH (09:05)
--- NOTE | 2017-10-26 09:25 | P.PNCC ---
Subjective Subjective Remarks/Hospital Course: Patient is a 87-year-old female with past medical history significant for seizure disorder, history of DVT on Coumadin, history of recent skin cancer removed from scalp, hypothyroidism who presented to the emergency department for recurrent falls. She fell once yesterday and twice today. With last fall she did hit her head. Stat CT of the head showed 1 cm left subdural hemorrhage with moderate mass-effect left-sided subarachnoid hemorrhage and cortical contusion. Patient's INR was 4.4, patient was ordered to receive 10 mg vitamin K , and initially was ordered K Centra. Due to in availability of Kcentra 3 units of FFP was ordered. Dr. Kaba was consulted with advised reversal of anticoagulation first. Critical care was contacted for admission I evaluated the patient in the ICU. She is anxious but hemodynamically stable. There is mild facial droop and mild right-sided weakness right upper extremity. Three units of FFP, vitamin K done. I discussed with Dr. Kaba. He will re evaluate for surgical evacuation after complete reversal of anticoagulation. BUN/creatinine slightly elevated 23/1.24. Give 1 unit normal saline bolus and maintenance fluid at 50 mL/h with normal saline. Also start 2 % saline and 30 mL/h to target sodium more than 145. Her Dilantin level was 32.5 which is supratherapeutic corrected level is 37. Will hold Dilantin no other seizure prophylaxis needed at this time 10/13/17: Approximately at about 5:30 AM developed focal seizures, was bolused with a single dose of Keppra thousand milligrams IV 1. Currently on 500 mg IV twice daily. Dilantin uncorrected 27.7. CT head today shows there is a slight increase in size of the left subdural hematoma, with significant increase in posterior component. Hb 6.7 today, repeat CBC is pending. Check ABG stat as patient is more somnolent. But wakes up easily appears to be protecting airway at this time 10/14/17: s/p evacuation of left SDH, post op CT shows good evacuation with some residual blood. Pneumocephalus present. No further seizures postop. Dilantin level remains high at 27.7 7: Remains intubated critical. Sodium 155. Hypertonic saline. Opening eyes to voice when sedation held, and tracks. Hemodynamically remains stable. Dilantin level 23.3 today Subjective: 10/16 Hypertensive when sedation was weaned so started on cardene early this morning. CT brain to be repeated today per NSG. Follows commands by wiggling left toes. 10/17 Follows command with minimal movement L toes. On CPAP 01/18 for couple of hours but does not appear she would protect airway. Dilantin downtrending, albumin corrected is 32 10/18: Orally intubated on mechanical ventilation. Awake and alert. Tolerating tube feeds. Tolerating CPAP trial 10/19: Remains orally intubated on mechanical ventilation. Transfused 1 unit PRBCs yesterday. Tolerating tube feeds. Significant respiratory secretions noted. Will initiate empiric antibiotics as patient has leukocytosis. Sputum Gram stain and cultures ordered. 10/20: Afebrile. Remains on oral tracheal intubation. She does have significant secretions with culture previously. Started on levofloxacin yesterday. Currently on CPAP trial. Subjective: 10/21: T-max 100.7. Currently 99.1. Currently on propofol drip at 5 mcg/kg/min. Currently not following commands at this upper extremities. Will reassess after sedation removed. Tolerating tube feeding at goal. 10/22: Strong on CPAP/SBT but it is doubtful she will protect her airway. We will continue to hold sedation and see if she does not become more alert. 10/23: Much stronger on spontaneous breathing trial today. Will probably meet criteria for extubation. 10/24: The patient required BiPAP for about 12 hours yesterday due to diffuse wheezing and crackles. After an approximately 5-1/2 L diuresis her wheezes have resolved and she is able to tolerate 2 L nasal cannula. She protects her airway well. Update 0830 hrs: Patient developed generalized clonic seizure, self limiting after 5 mins X 2. 10/25: Several more seizures yesterday last night. Generalized clonic with postictal state afterwards. Keppra increased to 1000 mg IV twice daily. We may need to restart her Dilantin. Her Dilantin toxicity was not an idiosyncratic reaction to the medication but rather excessive levels in the toxic effect. It would probably be safe to restart Dilantin with close monitoring of serum levels. Breathing remains acceptable after a 7-1/2 L diuresis over 48 hours. 10/26: No seizures overnight and she is much less confused today. Her speech is clear and she is moving her arms with purpose. She is breathing comfortably on 2 L nasal cannula while lying flat. Objective Vital Signs / I&O: Vital Signs 10/25/17 10:00 10/25/17 12:00 10/25/17 14:00 Temperature 98.5 F Pulse Rate 74 74 80 Respiratory Rate 21 Blood Pressure 140/64 Pulse Oximetry 95 10/25/17 16:00 10/25/17 18:00 10/25/17 19:32 Temperature 97.8 F Pulse Rate 72 82 Respiratory Rate 23 Blood Pressure 117/59 L Pulse Oximetry 97 100 10/25/17 20:00 10/25/17 22:00 10/26/17 00:00 Temperature 97.6 F 98.0 F Pulse Rate 86 82 80 Respiratory Rate 25 H 21 Blood Pressure 128/60 140/63 Pulse Oximetry 99 99 10/26/17 02:00 10/26/17 04:00 10/26/17 06:00 Temperature 97.7 F Pulse Rate 80 78 81 Respiratory Rate 24 Blood Pressure 133/63 Pulse Oximetry 96 10/26/17 08:44 Temperature Pulse Rate Respiratory Rate Blood Pressure Pulse Oximetry 99 Intake & Output 10/25/17 10/26/17 10/26/17 18:59 06:59 18:59 Intake Total 110 / 110 110 / 110 Output Total 800 / 800 400 / 400 Balance -690 / -690 -290 / -290 Weight 65.6 kg Intake: IV 110 / 110 110 / 110 Keppra Inj 1,000 MG In NS Inj 110 / 110 110 / 110 100 ML @ 400 mls/hr IV.SIG DAILY@0600,1800 [facility] Rx#: [id number] Oral 0 / 0 Output: Stool 200 / 200 Urine Amount (Catheter) 600 / 600 400 / 400 Indwelling Urethral Catheter 600 / 600 400 / 400 Other: Date of Last Bowel Movement 10/25/17 10/25/17 # Bowel Movements 1 Result Diagrams: 10/22/17 04:40 10/26/17 05:03 Objective Remarks: GENERAL: Elderly female, postictal presently SKIN: Warm/dry. HEAD: Small abrasion tip of nose. S/p L craniotomy with nataliya, c/d/i. EYES: Pupils equal and round, reactive, 2 mm. ENT: No nasal bleeding or discharge. Mucous membranes pink and moist. NECK: Trachea midline. Airway widely patent with no obstructive noises. Mild snoring. CARDIOVASCULAR: Regular rate and rhythm. Grade 2 systolic murmur heard in all areas. JVD has resolved. RESPIRATORY: Mild accessory muscle use. Clear to auscultation. Breath sounds equal bilaterally. Comfortable respiratory pattern. GASTROINTESTINAL: Abdomen soft, non-tender, nondistended. No guarding, bowel sounds present. MUSCULOSKELETAL: No obvious deformities. No clubbing. Trace + pitting edema all extremities. Warm, well-perfused. NEUROLOGICAL: Pupils reactive. Opens eyes, makes eye contact and tracks. Conversant today. Assessment and Plan - Problem List (1) Dilantin toxicity Code(s): T42.0X1A - Poisoning by hydantoin derivatives, accidental ( unintentional), initial encounter Status: Acute (2) Subdural hematoma, acute Code(s): S06.5X9A - Traumatic subdural hemorrhage with loss of consciousness of unspecified duration, initial encounter Status: Acute (3) Seizure disorder Code(s): G40.909 - Epilepsy, unspecified, not intractable, without status epilepticus Status: Chronic (4) Respiratory failure, acute Code(s): J96.00 - Acute respiratory failure, unspecified whether with hypoxia or hypercapnia Status: Acute (5) HTN (hypertension) Code(s): I10 - Essential (primary) hypertension Status: Chronic (6) Hypothyroid Code(s): E03.9 - Hypothyroidism, unspecified Status: Chronic (7) B12 deficiency Code(s): E53.8 - Deficiency of other specified B group vitamins Status: Chronic - Assessment and Plan Plan: A/P Assessment and Plan NEURO: Status post fall with left subdural, subarachnoid hemorrhage and cortical contusion, moderate mass-effect Dilantin toxicity Recurrent seizures Seizure disorder -CT of the head 10/12: 1 cm left subdural hemorrhage with moderate mass-effect left-sided SAH and cortical contusion. Repeat CT 10/13 increasing subdural hemorrhage -Status post craniotomy and evacuation of left subdural hemorrhage 10/13/2017. Postop CT showed improved subdural hemorrhage with some pneumocephalus. -Repeat CT brain today per neurosurgery. -No further seizures postop. Dilantin level remains high at 23.3 on 10/15. -Continue Keppra 500 mg IV every 12. -EEG 10/15 slightly higher amplitude on the left. No seizure activity. -Replace calcium, keep magnesium above 2 -Off versed. Wean fentanyl infusions. NSG also agreeable to sedation vacation. -Recurrent fall was most likely secondary to Dilantin toxicity. -dc 2% saline, keep sodium 150-155 -Avoid hyponatremia hypomagnesemia hypoxia -B12 supplementation as per below. -Electrolytes acceptable. -Recurrent seizures -10/24 RESP: Acute respiratory failure -PRVC/AC -SBT today. -DuoNeb every 6 hours as needed -We will discontinue BiPAP today and convert to nasal cannula -Fine on nasal cannula for several days now 10/26 CV: Hypertension -KVO MIVF. -Stopped 2% Saline -IV labetalol 10 mg every 2 hours as needed for SBP more than 150 -Weaned off cardene drip. GI: -Hold tube feeds with Jevity 1.5 @ 45ml/hr per nutrition recs. -IV famotidine : Acute kidney injury -Monitor renal function closely. -7500 mL diuresis, will discontinue Lasix drip. ID: -Levaquin for Enterobacter pneumonia, multiple allergies. HEME: Supratherapeutic INR On chronic Coumadin for DVT on admission. Anemia Vitamin B12 deficiency -s/p 3 units FFP, 10 mg IV vitamin K given -Status post 1 unit PRBC 10/13/2017 -Continue vitamin B12 supplementation 1000 mcg IM daily. ENDO: Hypothyroidism Hypocalcemia -Continue Synthroid 100 mcg per tube daily. -Electrolyte replacement per protocol PROPH: -Bilateral lower extremity SCDs. Chemical DVT prophylaxis contraindicated. IV famotidine LINES: -Right IJ central line placed in OR 10/13/2017 #9, removed.. Art line placed in OR has been removed. Overall impression: She met criteria for extubation early 10/23 morning and was extubated. About 4 hours after extubation she developed much more labored respiratory effort associated with diffuse crackles and wheezes. She required BiPAP noninvasive ventilation for about 12 hours while we diuresed about 5-1/2 L of free water from her. On 10/24 her respiratory status is much improved and she has been converted back to 2 L nasal cannula. Recurrent seizures treated with Ativan followed by re-bolus of Keppra and conversion of Keppra to intravenous form. She had self terminating breakthrough seizures on Keppra 500 mg twice daily we will increase the dose and consider adding back Dilantin. So far no new seizures on the larger dose of Keppra. (4) Respiratory failure, acute Qualifiers: Respiratory failure complication: hypoxia Qualified Code(s): J96.01 - Acute respiratory failure with hypoxia
[2017-10-26] MEDS: Potassium Chlor 20 mEq Premix 20 MEQ/100 ML PIGGYBACK IV.SIG PRN ×2 (11:09→16:12)
--- NOTE | 2017-10-26 13:25 | P.PNNS ---
Subjective Interval history: Patient has undergone left craniotomy evacuation for left hemisphere acute subdural hematoma on 10/13/2017. Pre-existing history of seizures with additional seizure activity noted preoperative. Patient intubated prior to surgery for decline in neurologic exam with follow-up CT scan 10/13/2017 revealing mild increase in left hemisphere subdural hematoma without additional mass-effect. 10/14/2017: CT scan head with good evacuation of left hemisphere subdural hematoma. Persistent enlargement of right subdural-subarachnoid space. Persistent mild to moderate left convexity subarachnoid hemorrhage. Ventricles remain symmetric. No significant pneumocephalus. Hemoglobin 7.8. Positive hypokalemia. No further seizure activity reported. Remains intubated with mild sedation. 10/15/2017: Patient is now postop day #2 status post left craniotomy for evacuation of subdural hematoma. She remains intubated. Weaning sedation today. No seizure activity noted Still significant CSF output from the drain, now being compressed only once per shift. 10/16: Patient is in bed when seen. She continues to be intubated and mechanically ventilated. She does open her eyes to voice. She is not following any commands but did move the left upper and both lower extremities to noxious stimulation. She had no response with the right upper except for facial grimacing. 10/17/17: Pt opens eyes. Pupils 4mm bilaterally. She moves left foot to command but not following with extremities otherwise. She is intubated and on Cardene drip. Left crani clean and dry. TATA drain in place. 10/18: When seen this afternoon the patient is awake in bed. She is intubated and on CPAP/PSV. She has no sedation infusing. She did not follow any commands. She moved the left upper and both lower extremities to stimulation but not the right upper. Nursing reported that she did move the left foot a couple times today to command and earlier became agitated and was moving both upper extremities spontaneously. 10/19: Patient with eyes closed when seen this morning. She was noted to move the left foot and left hand spontaneously prior to being evaluated. She did not open her eyes to any stimulation. She did move the left side to command and the right to noxious stimulation. She remains intubated and is on CPAP/PSV settings. 10/22: Patient remains on ventilator-CPAP trials No seizure activity reported over the weekend 10/24: This morning the patient had two generalised clonic seizures that were self-limiting. When seen this afternoon the patient was awake and alert. She was on a nasal cannula but did have audible secretions to the back of the throat. She was seen to move the distal left upper extremity spontaneously but did not follow any commands. She did move all extremities slightly to noxious stimulation. 10/25: When seen the patient is very drowsy. She verbalised several words in response to this practitioner's voice but they were muttered. She did not open her eyes at all. She moved the left foot and toes to light touch and all extremities to noxious stimulation. Nursing reported that earlier she did follow commands for her. She also reported that the patient had two further seizures during the night. The patient went for a CT brain this morning which demonstrated improvement in the left side subdural haematoma and the right side subdural hygroma being stable. 10/26: The patient is awake and talking in the room when seen this afternoon. She had no complaints. She followed commands with all extremities. [facility] is able to take the patient today for further care and rehab. <Julio Ricketts E - Last Filed: 10/26/17 13:39> Physical Exam Vital signs: Vital Signs 10/25/17 14:00 10/25/17 16:00 10/25/17 18:00 Temperature 97.8 F Pulse Rate 80 72 82 Respiratory Rate 23 Blood Pressure 117/59 L Pulse Oximetry 97 10/25/17 19:32 10/25/17 20:00 10/25/17 22:00 Temperature 97.6 F Pulse Rate 86 82 Respiratory Rate 25 H Blood Pressure 128/60 Pulse Oximetry 100 99 10/26/17 00:00 10/26/17 02:00 10/26/17 04:00 Temperature 98.0 F 97.7 F Pulse Rate 80 80 78 Respiratory Rate 21 24 Blood Pressure 140/63 133/63 Pulse Oximetry 99 96 10/26/17 06:00 10/26/17 08:00 10/26/17 08:44 Temperature 98.8 F Pulse Rate 81 81 Respiratory Rate 23 Blood Pressure 139/65 Pulse Oximetry 98 99 Intake & Output 10/25/17 10/26/17 10/26/17 18:59 06:59 18:59 Intake Total 110 / 110 110 / 110 Output Total 800 / 800 400 / 400 Balance -690 / -690 -290 / -290 Weight 65.6 kg Intake: IV 110 / 110 110 / 110 Keppra Inj 1,000 MG In NS Inj 110 / 110 110 / 110 100 ML @ 400 mls/hr IV.SIG DAILY@0600,1800 [facility] Rx#: [id number] Oral 0 / 0 Output: Stool 200 / 200 Urine Amount (Catheter) 600 / 600 400 / 400 Indwelling Urethral Catheter 600 / 600 400 / 400 Other: Date of Last Bowel Movement 10/25/17 10/25/17 10/25/17 # Bowel Movements 1 Narrative: GENERAL: Awake & alert in bed when seen. Readily smiles & interacts. On nasal cannula. No apparent distress. HEENT: Normocephalic. All but 4 antaliya are out to left crani surgical incision which is well approximated, no evident drainage, erythema or streaking. Small area at distal end of surgical incision <1 cm that opened when Nursing attempted to remove staple from area. This practitioner had to use 2 haemostats so as to remove the remaining 4 nataliya due to how they were bent. The patient tolerated removal well. The area was clean and abx ointment applied by Nursing. Steri-strips were then applied. The sutures are intact to the drain site w/o any evident drainage, erythema or streaking. Pupils 3-4 mm reactive. MUSCULOSKELETAL: Moved all extremities to command No evident clubbing or deformity. NEUROLOGICAL: Awake & alert. Oriented to self. Pupils 3-4 mm reactive. Speaking in complete sentences, fairly clear, at times inappropriate. Followed commands with all extremities, able to move UE>LE. - Urinary Catheter Management Indwelling Urethral Catheter Cath placed during this visit: yes Reason for continuing: Hourly intake/output Insertion date: 10/12/17 Insertion time: 08:13 <Julio Ricketts - Last Filed: 10/26/17 13:39> - Urinary Catheter Management Indwelling Urethral Catheter Cath placed during this visit: no <Richard Kaba - Last Filed: 12/06/17 23:00> Assessment and Plan - Plan Impression: 1. Stable neurologic exam and postoperative CT scan following evacuation acute left hemisphere subdural hematoma 10/14/2017. Seizure disorder Patient awake & alert. Speaking in complete sentences, fairly clear, inappropriate at times. Followed commands w/all extremities, moving UE>LE. Past 24 hrs: Afebrile. Reviewed labs for today. Sodium 143. Hypokalemia. eGFR improved to 58. CT brain demonstrated improving left SDH w/resolution of right to left shift; stable chronic right subdural hygroma; minimal left frontal pneumocephaly; no intercurrent haemorrhage or hydrocephalus. Plan: 1. Primary & critical care management per [employer]. 2. Continue respiratory support. 3. Continue anti-seizure medication. 4. Electrolyte replacement per [employer]. 5. Remove drain site sutures. 6. Patient is able to be discharged to [facility] from Neurosurgery's perspective. <Julio Ricketts - Last Filed: 10/26/17 13:39> - Assessment (1) Subdural hematoma, acute Code(s): S06.5X9A - Traumatic subdural hemorrhage with loss of consciousness of unspecified duration, initial encounter Status: Acute - Attending Attestation The exam, history, and the medical decision-making described in the above note were completed with the assistance of the mid-level provider. I reviewed and agree with the findings presented. I attest that I had a [id number] encounter with the patient on the same day, and personally performed and documented my assessment and findings in the medical record. <Richard Kaba - Last Filed: 12/06/17 23:00>
--- NOTE | 2017-10-26 15:42 | P.DS ---
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 She said fell and hit her head requiring evacuation of a moderate sized left subdural hematoma. Ventilator weaning was prolonged and she required BiPAP noninvasive ventilation for several days thereafter. The immediate post extubation. Was complicated by several self terminating seizures lasting about 510 minutes each. We chose not to restart Dilantin but covered her with Keppra. At 1000 mg Keppra twice daily she has been seizure-free for 48 hours. Her speech is clear but she is still confused. She recognizes her family members but does not remember their name always. 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 The patient did recognize her director. After lengthy discussions with her immediate family it is predicted she will need several weeks of recovery followed hopefully by return to [facility] for ongoing rehab. Despite her advanced age her potential for recovery is excellent. DS: Diagnosis - Discharge Diagnosis (1) Dilantin toxicity Status: Acute (2) Subdural hematoma, acute Status: Acute (3) Seizure disorder Status: Chronic (4) Respiratory failure, acute Status: Acute (5) HTN (hypertension) Status: Chronic (6) Hypothyroid Status: Chronic (7) B12 deficiency Status: Chronic DS: Summary Hospital Course: Patient is a 87-year-old female with past medical history significant for seizure disorder, history of DVT on Coumadin, history of recent skin cancer removed from scalp, hypothyroidism who presented to the emergency department for recurrent falls. She fell once yesterday and twice today. With last fall she did hit her head. Stat CT of the head showed 1 cm left subdural hemorrhage with moderate mass-effect left-sided subarachnoid hemorrhage and cortical contusion. Patient's INR was 4.4, patient was ordered to receive 10 mg vitamin K , and initially was ordered K Centra. Due to in availability of Kcentra 3 units of FFP was ordered. Dr. Kaba was consulted with advised reversal of anticoagulation first. Critical care was contacted for admission I evaluated the patient in the ICU. She is anxious but hemodynamically stable. There is mild facial droop and mild right-sided weakness right upper extremity. Three units of FFP, vitamin K done. I discussed with Dr. Kaba. He will re evaluate for surgical evacuation after complete reversal of anticoagulation. BUN/creatinine slightly elevated 08/05.24. Give 1 unit normal saline bolus and maintenance fluid at 50 mL/h with normal saline. Also start 2 % saline and 30 mL/h to target sodium more than 145. Her Dilantin level was 32.5 which is supratherapeutic corrected level is 37. Will hold Dilantin no other seizure prophylaxis needed at this time 10/13/17: Approximately at about 5:30 AM developed focal seizures, was bolused with a single dose of Keppra thousand milligrams IV 1. Currently on 500 mg IV twice daily. Dilantin uncorrected 27.7. CT head today shows there is a slight increase in size of the left subdural hematoma, with significant increase in posterior component. Hb 6.7 today, repeat CBC is pending. Check ABG stat as patient is more somnolent. But wakes up easily appears to be protecting airway at this time 10/14/17: s/p evacuation of left SDH, post op CT shows good evacuation with some residual blood. Pneumocephalus present. No further seizures postop. Dilantin level remains high at 27.7 10/15: Remains intubated critical. Sodium 155. Hypertonic saline. Opening eyes to voice when sedation held, and tracks. Hemodynamically remains stable. Dilantin level 23.3 today Subjective: 7/3 Hypertensive when sedation was weaned so started on cardene early this morning. CT brain to be repeated today per NSG. Follows commands by wiggling left toes. 10/17 Follows command with minimal movement L toes. On CPAP 01/18 for couple of hours but does not appear she would protect airway. Dilantin downtrending, albumin corrected is 32 10/18: Orally intubated on mechanical ventilation. Awake and alert. Tolerating tube feeds. Tolerating CPAP trial 10/19: Remains orally intubated on mechanical ventilation. Transfused 1 unit PRBCs yesterday. Tolerating tube feeds. Significant respiratory secretions noted. Will initiate empiric antibiotics as patient has leukocytosis. Sputum Gram stain and cultures ordered. 10/20: Afebrile. Remains on oral tracheal intubation. She does have significant secretions with culture previously. Started on levofloxacin yesterday. Currently on CPAP trial. Subjective: 10/21: T-max 100.7. Currently 99.1. Currently on propofol drip at 5 mcg/kg/min. Currently not following commands at this upper extremities. Will reassess after sedation removed. Tolerating tube feeding at goal. 10/22: Strong on CPAP/SBT but it is doubtful she will protect her airway. We will continue to hold sedation and see if she does not become more alert. 10/23: Much stronger on spontaneous breathing trial today. Will probably meet criteria for extubation. 10/24: The patient required BiPAP for about 12 hours yesterday due to diffuse wheezing and crackles. After an approximately 5-1/2 L diuresis her wheezes have resolved and she is able to tolerate 2 L nasal cannula. She protects her airway well. Update 0830 hrs: Patient developed generalized clonic seizure, self limiting after 5 mins X 2. 10/25: Several more seizures yesterday last night. Generalized clonic with postictal state afterwards. Keppra increased to 1000 mg IV twice daily. We may need to restart her Dilantin. Her Dilantin toxicity was not an idiosyncratic reaction to the medication but rather excessive levels in the toxic effect. It would probably be safe to restart Dilantin with close monitoring of serum levels. Breathing remains acceptable after a 7-1/2 L diuresis over 48 hours. 10/26: No seizures overnight and she is much less confused today. Her speech is clear and she is moving her arms with purpose. She is breathing comfortably on 2 L nasal cannula while lying flat. - Time Spent with Patient Total time spent providing and/or coordinating discharge services: Greater than 30 minutes (none) - Quality: VTE Contraindication No VTE Prophylaxis: Contraindicated Is this test being ordered to rule out VTE?: No Deep Vein Thrombosis/Pulmonary Embolism Present on Admission: No Exam Vital signs: Vital Signs 10/25/17 16:00 10/25/17 18:00 10/25/17 19:32 Temperature 97.8 F Pulse Rate 72 82 Respiratory Rate 23 Blood Pressure 117/59 L Pulse Oximetry 97 100 10/25/17 20:00 10/25/17 22:00 10/26/17 00:00 Temperature 97.6 F 98.0 F Pulse Rate 86 82 80 Respiratory Rate 25 H 21 Blood Pressure 128/60 140/63 Pulse Oximetry 99 99 10/26/17 02:00 10/26/17 04:00 10/26/17 06:00 Temperature 97.7 F Pulse Rate 80 78 81 Respiratory Rate 24 Blood Pressure 133/63 Pulse Oximetry 96 10/26/17 08:00 10/26/17 08:44 Temperature 98.8 F Pulse Rate 81 Respiratory Rate 23 Blood Pressure 139/65 Pulse Oximetry 98 99 Intake & Output 10/25/17 10/26/17 10/26/17 18:59 06:59 18:59 Intake Total 110 / 110 110 / 110 Output Total 800 / 800 400 / 400 Balance -690 / -690 -290 / -290 Weight 65.6 kg Intake: IV 110 / 110 110 / 110 Keppra Inj 1,000 MG In NS Inj 110 / 110 110 / 110 100 ML @ 400 mls/hr IV.SIG DAILY@0600,1800 [facility] Rx#: [id number] Oral 0 / 0 Output: Stool 200 / 200 Urine Amount (Catheter) 600 / 600 400 / 400 Indwelling Urethral Catheter 600 / 600 400 / 400 Other: Date of Last Bowel Movement 10/25/17 10/25/17 10/25/17 # Bowel Movements 1 Narrative: Lung congested. Results Procedures completed during hospitalization: none Labs on day of discharge: Labs from last 24 hours 10/26/17 10/26/17 10/26/17 05:03 04:42 00:49 Sodium 143 Potassium 3.4 L Chloride 103 Carbon Dioxide 27.7 Anion Gap 12 BUN 32 H Creatinine 0.91 Estimated GFR 58 L POC Glucose 79 80 Random Glucose 71 L Calcium 9.1 Phosphorus 3.7 Magnesium 2.5 10/25/17 21:12 Sodium Potassium Chloride Carbon Dioxide Anion Gap BUN Creatinine Estimated GFR POC Glucose 73 Random Glucose Calcium Phosphorus Magnesium - Impressions ITS Impressions Venous Doppler Study 10/16/17 00:00 CONCLUSION: 1. The study is negative for bilateral lower extremity deep venous thrombosis. Abdomen X-Ray 10/20/17 00:00 CONCLUSION: Unremarkable abdomen Chest X-Ray 10/24/17 00:00 CONCLUSION: Persistent but decreasing bibasilar airspace disease. Status post extubation. Head CT 10/25/17 00:00 CONCLUSION: 1. Interval removal of left subdural drain with minimal residual anterior left frontal pneumocephalus. 2. Improving subdural blood products overlying the left vertex, as above. 3. Stable chronic right-sided subdural hygroma. 4. Interval resolution of right to left subfalcine shift. 5. No intercurrent hemorrhage or hydrocephalus. Discharge Plan - Discharge Disposition Patient Disposition: 62 Rehab Inpatient - Discharge Condition Condition: Good - Discharge Order Discharge Orders: Discharge Order (Routine); Ordered 10/26/17 Ordered By: Matt Foster Neurosurgery Clear for Discharge (Routine); Ordered 10/26/17 Ordered By: Julio Ricketts - Discharge Details Anticipated Discharge Date: 10/26/17 - Physicians Team Primary Care Provider: UNKNOWN, Attending Provider: Malika Zuniga Other Providers: Richard Kaba MD ; [facility] - Rxs /Orders / Referrals /Forms Prescriptions: Discontinued amlodipine 5 mg Tablet 10 mg PO DAILY 30 Days Qty: 60 atorvastatin 20 mg Tablet 20 mg PO DAILY 30 Days Qty: 30 RF: 0 famotidine 20 mg Tablet 10 mg PO BID 30 Days Qty: 30 RF: 0 levetiracetam 500 mg Tablet 1,000 mg PO Q12H 30 Days Qty: 120 RF: 0 levothyroxine [Synthroid] 100 mcg Tablet 100 mcg PO DAILY@06 30 Days RF: 0 sennosides [Senna Lax] 8.6 mg Tablet 17.2 mg PO Q12H PRN (Reason: Moderate Constipation) 30 Days RF: 0 Referrals: UNKNOWN, [Primary Care Provider] - See Instructions - Post Discharge Care Plan Care Plan Goals: Your Health Problems: Goals to Promote Your Health: * To prevent worsening of your condition * To maintain your health at the optimal level Directions to Meet Your Goals: * Take your medications as prescribed * Follow your dietary instruction * Follow activity as directed * Keep your appointments as scheduled * Take your immunizations and boosters as scheduled * If your symptoms worsen call your PCP * If no PCP go to Urgent Care or Emergency Room Smoking is dangerous to your health. Avoid second hand smoke. You may reach the 24-hour crisis hotline for domestic abuse at .
[2017-10-26 16:30] VITALS: PULSE 84
[2017-10-26 16:31] VITALS: BP 150/69; RESP 22; TEMP 98.3; O2SAT 97
--- NOTE | 2017-11-09 16:41 | P.DS ---
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 She said fell and hit her head requiring evacuation of a moderate sized left subdural hematoma. Ventilator weaning was prolonged and she required BiPAP noninvasive ventilation for several days thereafter. The immediate post extubation. Was complicated by several self terminating seizures lasting about 510 minutes each. We chose not to restart Dilantin but covered her with Keppra. At 1000 mg Keppra twice daily she has been seizure-free for 48 hours. Her speech is clear but she is still confused. She recognizes her family members but does not remember their name always. 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 The patient did recognize her director. After lengthy discussions with her immediate family it is predicted she will need several weeks of recovery followed hopefully by return to [facility] for ongoing rehab. Despite her advanced age her potential for recovery is excellent. DS: Diagnosis - Discharge Diagnosis (1) Dilantin toxicity Status: Acute (2) Subdural hematoma, acute Status: Acute (3) Seizure disorder Status: Chronic (4) Respiratory failure, acute Status: Acute (5) HTN (hypertension) Status: Chronic (6) Hypothyroid Status: Chronic (7) B12 deficiency Status: Chronic DS: Summary Hospital Course: Patient is a 87-year-old female with past medical history significant for seizure disorder, history of DVT on Coumadin, history of recent skin cancer removed from scalp, hypothyroidism who presented to the emergency department for recurrent falls. She fell once yesterday and twice today. With last fall she did hit her head. Stat CT of the head showed 1 cm left subdural hemorrhage with moderate mass-effect left-sided subarachnoid hemorrhage and cortical contusion. Patient's INR was 4.4, patient was ordered to receive 10 mg vitamin K , and initially was ordered K Centra. Due to in availability of Kcentra 3 units of FFP was ordered. Dr. Kaba was consulted with advised reversal of anticoagulation first. Critical care was contacted for admission I evaluated the patient in the ICU. She is anxious but hemodynamically stable. There is mild facial droop and mild right-sided weakness right upper extremity. Three units of FFP, vitamin K done. I discussed with Dr. Kaba. He will re evaluate for surgical evacuation after complete reversal of anticoagulation. BUN/creatinine slightly elevated 08/05.24. Give 1 unit normal saline bolus and maintenance fluid at 50 mL/h with normal saline. Also start 2 % saline and 30 mL/h to target sodium more than 145. Her Dilantin level was 32.5 which is supratherapeutic corrected level is 37. Will hold Dilantin no other seizure prophylaxis needed at this time 10/13/17: Approximately at about 5:30 AM developed focal seizures, was bolused with a single dose of Keppra thousand milligrams IV 1. Currently on 500 mg IV twice daily. Dilantin uncorrected 27.7. CT head today shows there is a slight increase in size of the left subdural hematoma, with significant increase in posterior component. Hb 6.7 today, repeat CBC is pending. Check ABG stat as patient is more somnolent. But wakes up easily appears to be protecting airway at this time 10/14/17: s/p evacuation of left SDH, post op CT shows good evacuation with some residual blood. Pneumocephalus present. No further seizures postop. Dilantin level remains high at 27.7 10/15: Remains intubated critical. Sodium 155. Hypertonic saline. Opening eyes to voice when sedation held, and tracks. Hemodynamically remains stable. Dilantin level 23.3 today Subjective: 7/3 Hypertensive when sedation was weaned so started on cardene early this morning. CT brain to be repeated today per NSG. Follows commands by wiggling left toes. 10/17 Follows command with minimal movement L toes. On CPAP 01/18 for couple of hours but does not appear she would protect airway. Dilantin downtrending, albumin corrected is 32 10/18: Orally intubated on mechanical ventilation. Awake and alert. Tolerating tube feeds. Tolerating CPAP trial 10/19: Remains orally intubated on mechanical ventilation. Transfused 1 unit PRBCs yesterday. Tolerating tube feeds. Significant respiratory secretions noted. Will initiate empiric antibiotics as patient has leukocytosis. Sputum Gram stain and cultures ordered. 10/20: Afebrile. Remains on oral tracheal intubation. She does have significant secretions with culture previously. Started on levofloxacin yesterday. Currently on CPAP trial. Subjective: 10/21: T-max 100.7. Currently 99.1. Currently on propofol drip at 5 mcg/kg/min. Currently not following commands at this upper extremities. Will reassess after sedation removed. Tolerating tube feeding at goal. 10/22: Strong on CPAP/SBT but it is doubtful she will protect her airway. We will continue to hold sedation and see if she does not become more alert. 10/23: Much stronger on spontaneous breathing trial today. Will probably meet criteria for extubation. 10/24: The patient required BiPAP for about 12 hours yesterday due to diffuse wheezing and crackles. After an approximately 5-1/2 L diuresis her wheezes have resolved and she is able to tolerate 2 L nasal cannula. She protects her airway well. Update 0830 hrs: Patient developed generalized clonic seizure, self limiting after 5 mins X 2. 10/25: Several more seizures yesterday last night. Generalized clonic with postictal state afterwards. Keppra increased to 1000 mg IV twice daily. We may need to restart her Dilantin. Her Dilantin toxicity was not an idiosyncratic reaction to the medication but rather excessive levels in the toxic effect. It would probably be safe to restart Dilantin with close monitoring of serum levels. Breathing remains acceptable after a 7-1/2 L diuresis over 48 hours. 10/26: No seizures overnight and she is much less confused today. Her speech is clear and she is moving her arms with purpose. She is breathing comfortably on 2 L nasal cannula while lying flat. - Time Spent with Patient Total time spent providing and/or coordinating discharge services: Greater than 30 minutes Exam Vital signs: P 80, BP 120/80, % 12 Narrative: Alert, conversant. Lungs clear. Results Procedures completed during hospitalization: none - Impressions ITS Impressions Venous Doppler Study 10/16/17 00:00 CONCLUSION: 1. The study is negative for bilateral lower extremity deep venous thrombosis. Abdomen X-Ray 10/20/17 00:00 CONCLUSION: Unremarkable abdomen Chest X-Ray 10/24/17 00:00 CONCLUSION: Persistent but decreasing bibasilar airspace disease. Status post extubation. Head CT 10/25/17 00:00 CONCLUSION: 1. Interval removal of left subdural drain with minimal residual anterior left frontal pneumocephalus. 2. Improving subdural blood products overlying the left vertex, as above. 3. Stable chronic right-sided subdural hygroma. 4. Interval resolution of right to left subfalcine shift. 5. No intercurrent hemorrhage or hydrocephalus. Discharge Plan - Discharge Disposition Patient Disposition: 62 Rehab Inpatient - Discharge Condition Condition: Good - Discharge Order Discharge Orders: Discharge Order (Routine); Ordered 10/26/17 Ordered By: Matt Foster Neurosurgery Clear for Discharge (Routine); Ordered 10/26/17 Ordered By: Julio Ricketts - Discharge Details Anticipated Discharge Date: 10/26/17 - Physicians Team Primary Care Provider: UNKNOWN, Attending Provider: Malika Zuniga Other Providers: Richard Kaba MD ; [facility] - Rxs /Orders / Referrals /Forms Prescriptions: Discontinued amlodipine 5 mg Tablet 10 mg PO DAILY 30 Days Qty: 60 atorvastatin 20 mg Tablet 20 mg PO DAILY 30 Days Qty: 30 RF: 0 famotidine 20 mg Tablet 10 mg PO BID 30 Days Qty: 30 RF: 0 levetiracetam 500 mg Tablet 1,000 mg PO Q12H 30 Days Qty: 120 RF: 0 levothyroxine [Synthroid] 100 mcg Tablet 100 mcg PO DAILY@06 30 Days RF: 0 sennosides [Senna Lax] 8.6 mg Tablet 17.2 mg PO Q12H PRN (Reason: Moderate Constipation) 30 Days RF: 0 Referrals: UNKNOWN, [Primary Care Provider] - See Instructions - Post Discharge Care Plan Care Plan Goals: Your Health Problems: Goals to Promote Your Health: * To prevent worsening of your condition * To maintain your health at the optimal level Directions to Meet Your Goals: * Take your medications as prescribed * Follow your dietary instruction * Follow activity as directed * Keep your appointments as scheduled * Take your immunizations and boosters as scheduled * If your symptoms worsen call your PCP * If no PCP go to Urgent Care or Emergency Room Smoking is dangerous to your health. Avoid second hand smoke. You may reach the 24-hour crisis hotline for domestic abuse at .
== END 2017-10-26 20:12 ==
LOC: N03 09:18
PROVIDERS: ADMIT Internal Medicine; ATTEND Internal Medicine

== ENCOUNTER 2018-01-01 12:27 | Observation (INO) ==
--- NOTE | 2018-01-01 12:53 | ED ---
HPI General Chief complaint: Extremity Problem,Nontraumatic Stated complaint: Rt leg swelling x 3 days Time Seen by Provider: 01/01/18 12:50 Source: patient Mode of arrival: ambulatory Limitations: no limitations History of Present Illness HPI Narrative: 87-year-old female patient with history of previous DVTs, seizures, fell 3 weeks ago and had an intracranial bleed, had been taken off of her Coumadin, and over the last few days, she has had swelling which is most notable to her on the right leg. However, she is swollen on both legs. She was sent in by her therapist to be evaluated.She denies any new chest pains, shortness of breath, or other symptoms. Related Data Home Medications Medication Instructions Recorded Confirmed levetiracetam [Keppra] mg PO Q12H 01/01/18 levothyroxine [Synthroid] 100 mcg PO DAILY 01/01/18 01/01/18 simvastatin [Zocor] 40 mg PO QPM 01/01/18 01/01/18 Allergies Allergy/AdvReac Type Severity Reaction Status Date / Time Sulfa (Sulfonamide Allergy Severe RASH Verified 01/01/18 12:32 Antibiotics) egg Allergy Intermediate Swelling Verified 01/01/18 12:32 of Lip/Tongue/Throat Penicillins Allergy Intermediate RASH Verified 01/01/18 12:32 carbamazepine Allergy Mild rash Verified 01/01/18 12:32 Review of Systems ROS: all other systems reviewed are negative PMFSH History History Provided By: Patient Medical History Medical History Seizure (Acute) DVT (deep venous thrombosis) (Acute) Subdural hematoma (Acute) Family History Family History Other Family history of cancer Social History Social History Substance History: No History of Abuse Second Hand Smoke Exposure: No Smoking Status: Never smoker How Often Do You Have a Drink Containing Alcohol: Never Recent Travel in [facility] within the Last 8 Weeks: No Recent Out of Country Travel within the Last 8 Weeks: No Exam Narrative Exam Narrative: GENERAL: Well-developed pleasant elderly female patient currently not in acute distress. Awake and oriented 3. SKIN: Focused skin assessment warm/dry. HEAD: Atraumatic. Normocephalic. EYES: Pupils equal and round. No scleral icterus. No injection or drainage. ENT: No nasal bleeding or discharge. Mucous membranes pink and moist. NECK: Trachea midline. No JVD. CARDIOVASCULAR: Regular rate and rhythm. No murmur appreciated. RESPIRATORY: No accessory muscle use. Clear to auscultation. Breath sounds equal bilaterally. GASTROINTESTINAL: Abdomen soft, non-tender, nondistended. Hepatic and splenic margins not palpable. MUSCULOSKELETAL: No obvious deformities. No clubbing. No cyanosis. Bilateral lower leg edema. NEUROLOGICAL: Awake and alert. No obvious cranial nerve deficits. Motor grossly within normal limits. Normal speech. PSYCHIATRIC: Appropriate mood and affect; insight and judgment normal. Course Initial Documented Vital Signs Temperature 97.5 F L 01/01/18 12:34 Pulse Rate 75 01/01/18 12:34 Respiratory Rate 18 01/01/18 12:34 Blood Pressure 105/57 L 01/01/18 12:34 Pulse Oximetry 100 01/01/18 12:34 Last Documented Vital Signs Temperature 97.5 F L 01/01/18 12:34 Pulse Rate 74 01/01/18 14:20 Respiratory Rate 16 01/01/18 14:20 Blood Pressure 120/60 01/01/18 14:20 Pulse Oximetry 99 01/01/18 14:20 Medical Decision Making MDM Narrative Medical decision making narrative: Ultrasound reveals bilateral nonocclusive DVTs. Patient has history of DVTs and had been taken off of her Coumadin after her fall and intracranial bleed 2 months ago. At this point, I have talked to Dr. Lucas who states the patient can be anticoagulated again but will need to weigh out the risk of further falls and intracranial bleeding versus DVT risk. I have also talked to interventional radiology who states that if the patient needs an IVC filter, it can be done in [place] as well but again patient will have to wait out the risk versus benefits of IVC filter. At this point, my plan would be to admit the patient for further anticoagulation and evaluation of her options, case is discussed with Dr. Castellano for admission. Medical Screen Exam Complete: Yes Emergency Medical Condition: Yes Differential Diagnosis Differential Diagnosis: Bilateral leg edema: Dependent edema versus DVT versus CHF Imaging Data Attestation: I personally reviewed and interpreted this imaging study as follows : Radiologist's impression: Chest X-Ray 01/01/18 12:50 CONCLUSION: Questionable nodule in the right midlung zone. Outpatient PA and lateral radiographs of the chest are recommended. Lungs are otherwise clear. Tortuous aorta. Venous Doppler Study 01/01/18 12:50 CONCLUSION: 1. Some echogenic thrombus within the right popliteal and peroneal veins. Small amount of thrombus in the left peroneal vein could all be chronic thrombus Discharge Plan Discharge Disposition Patient Disposition: 30 Still Patient Discharge Condition Condition: Stable Discharge Details Anticipated Discharge Date: 01/01/18 Diagnosis: DVT (deep venous thrombosis) Physicians Team ED Provider: Stella Esqueda Primary Care Provider: UNKNOWN, Rxs /Orders / Referrals /Forms Prescriptions: No Action simvastatin [Zocor] 40 mg Tablet 40 mg PO QPM RF: 0 levothyroxine [Synthroid] 200 mcg Tablet 100 mcg PO DAILY RF: 0 levetiracetam [Keppra] 1,000 mg Tablet PO Q12H RF: 0 Discharge Interventions Interventions: Vital Signs Last Done: 01/01/18 15:10 Status ED Status: With Doctor
[2018-01-01] MEDS ORDERED: Bisacodyl 10 MG Supp RECTAL PRN (17:00)
[2018-01-01] MEDS ORDERED: Acetaminophen 325 MG Tablet PO PRN (18:14)
[2018-01-01] MEDS: Senna/Docusate Sodium 8.6/50 MG Tablet PO SCH (20:40)
[2018-01-01] MEDS: Famotidine 20 MG Tablet PO SCH (20:40)
[2018-01-01] MEDS: levETIRAcetam 500 MG Tablet PO SCH (20:40)
[2018-01-01 20:44] LABS: Baso % (Auto) 0.5 % (0.0-2.0); Eos # (Auto) 0.5 th/mm3 (0.0-0.4); Eos % (Auto) 6.6 % (0.0-4.0); Hematocrit 31.3 % (35.0-46.0); Hemoglobin 10.2 gm/dL (11.6-15.3); Lymph # (Auto) 1.5 th/mm3 (1.0-4.8); Lymph % (Auto) 20.7 % (9.0-44.0); Mean Corpuscular HGB Conc 32.5 % (32.0-36.0); Mean Corpuscular Hemoglobin 27.3 pg (27.0-34.0); Mean Corpuscular Volume 84.1 fL (80.0-100.0); Mean Platelet Volume 8.5 fL (7.0-11.0); Mono # (Auto) 0.8 th/mm3 (0.0-0.9); Mono % (Auto) 10.6 % (0.0-8.0); Neut # (Auto) 4.5 th/mm3 (1.8-7.7); Neut % (Auto) 61.6 % (16.0-70.0); Platelet Count 161 th/mm3 (150-450); Red Blood Count 3.72 mil/mm3 (4.00-5.30); Red Cell Distribution Width 13.9 % (11.6-17.2); White Blood Count 7.3 th/mm3 (4.0-11.0)
[2018-01-01 20:54] LABS: Calcium 8.3 mg/dL (8.5-10.1); Carbon Dioxide 21.5 meq/L (21.0-32.0)
[2018-01-01 20:56] LABS: Activated Partial Thrombo Time 23.8 sec (24.3-30.1); INR 1.1 Ratio; Prothrombin Time 10.7 sec (9.8-11.6)
[2018-01-01] MEDS: Heparin - SQ 10,000 UNITS/ML Vial SQ SCH (21:38)
[2018-01-02] MEDS: Heparin - SQ 10,000 UNITS/ML Vial SQ SCH ×3 (06:18→21:00)
[2018-01-02] MEDS: levETIRAcetam 500 MG Tablet PO SCH ×2 (08:33→20:42)
[2018-01-02] MEDS: Famotidine 20 MG Tablet PO SCH ×2 (08:33→20:42)
[2018-01-02] MEDS: amLODIPine 10 MG Tablet PO SCH (08:33)
[2018-01-02] MEDS: Senna/Docusate Sodium 8.6/50 MG Tablet PO SCH ×2 (08:34→20:51)
[2018-01-02] MEDS ORDERED: Dextrose 50% in Water 50 ML Vial IV.PUSH PRN (10:21)
[2018-01-02] MEDS: Sod Chloride 0.9% Inj 1,000 ML IV.CONT SCH (15:11)
[2018-01-03] MEDS: Sod Chloride 0.9% Inj 1,000 ML IV.CONT SCH ×3 (00:22→13:46)
[2018-01-03] MEDS: Heparin - SQ 10,000 UNITS/ML Vial SQ SCH (05:58)
[2018-01-03 06:48] LABS: Baso % (Auto) 0.7 % (0.0-2.0); Eos # (Auto) 0.6 th/mm3 (0.0-0.4); Eos % (Auto) 8.7 % (0.0-4.0); Hemoglobin 10.9 gm/dL (11.6-15.3); Lymph # (Auto) 1.5 th/mm3 (1.0-4.8); Lymph % (Auto) 22.3 % (9.0-44.0); Mean Corpuscular Hemoglobin 27.3 pg (27.0-34.0); Mean Corpuscular Volume 85.5 fL (80.0-100.0); Mean Platelet Volume 9.2 fL (7.0-11.0); Mono # (Auto) 0.6 th/mm3 (0.0-0.9); Mono % (Auto) 9.4 % (0.0-8.0); Neut % (Auto) 58.9 % (16.0-70.0); Platelet Count 161 th/mm3 (150-450); Red Blood Count 3.97 mil/mm3 (4.00-5.30); Red Cell Distribution Width 13.6 % (11.6-17.2); White Blood Count 6.7 th/mm3 (4.0-11.0)
[2018-01-03 07:20] LABS: Potassium 3.9 meq/L (3.5-5.1)
[2018-01-03 07:22] LABS: Calcium 8.7 mg/dL (8.5-10.1)
[2018-01-03 07:23] LABS: Carbon Dioxide 22.9 meq/L (21.0-32.0)
[2018-01-03] MEDS: amLODIPine 10 MG Tablet PO SCH (08:50)
[2018-01-03] MEDS: levETIRAcetam 500 MG Tablet PO SCH (08:50)
[2018-01-03] MEDS: Famotidine 20 MG Tablet PO SCH (08:50)
[2018-01-03] MEDS: Senna/Docusate Sodium 8.6/50 MG Tablet PO SCH (08:50)
[2018-01-03] MEDS ORDERED: fentaNYL Citrate Inj 100 MCG/2 ML Ampul IV.PUSH ONE (10:20)
[2018-01-03] MEDS ORDERED: Iohexol 350 MG/ML 50 ML Vial (for Rad Diag) IVCONTRAST ONE (10:25)
[2018-01-03 11:35] VITALS: RESP 16; O2SAT 100
[2018-01-03 11:52] VITALS: BP 118/61; PULSE 72; TEMP 97.5
== END 2018-01-03 13:55 | disposition home health service (06) ==
LOC: PHED 12:27 → PHEDA 15:37 → INTOOBSV 15:37 → PH3 16:53
PROVIDERS: ADMIT Internal Medicine; ATTEND Internal Medicine
DX: G40.909 Epilepsy, unspecified, not intractable, without status epilepticus; Z79.01 Long term (current) use of anticoagulants; Z80.9 Family history of malignant neoplasm, unspecified; Z88.2 Allergy status to sulfonamides; Z88.0 Allergy status to penicillin; I82.592 Chronic embolism and thrombosis of other specified deep vein of left lower extremity; R79.1 Abnormal coagulation profile; I10 Essential (primary) hypertension; S06.5X9A Traumatic subdural hemorrhage with loss of consciousness of unspecified duration, initial encounter; E78.5 Hyperlipidemia, unspecified; Z91.81 History of falling; K21.9 Gastro-esophageal reflux disease without esophagitis; I82.431 Acute embolism and thrombosis of right popliteal vein